=== PATIENT | female | born 1965 | race Caucasian/White ===

== ENCOUNTER → 2017-02-20 | Outpatient (CLI) | payer BC, SELFPAY | PROVIDERS: Visit Provider Internal Medicine | DX: C50.919 Malignant neoplasm of unspecified site of unspecified female breast (principal) | CPT/HCPCS: 76641; 77066; G0204 ==

== ENCOUNTER 2017-03-23 08:30 | Outpatient (CLI) | payer BC, SELFPAY ==
[2017-03-23 08:30] VITALS: BP 122/78; PULSE 68; RESP 20; TEMP 36.4
== END 2017-03-23 09:00 | disposition home or self-care (01) ==
LOC: INF 15:57
PROVIDERS: Family Provider Family Medicine; PCP Family Medicine; Visit Provider Internal Medicine
DX: Z45.2 Encounter for adjustment and management of vascular access device (principal)
CPT/HCPCS: 96523; J1642

== ENCOUNTER 2017-04-27 08:36 | Outpatient (CLI) | payer BC, SELFPAY ==
[2017-04-27 08:45] VITALS: BP 150/78; PULSE 65; RESP 18; TEMP 36.6; O2SAT 97
== END 2017-04-27 08:50 | disposition home or self-care (01) ==
LOC: INF 08:37
PROVIDERS: Family Provider Family Medicine; PCP Family Medicine; Visit Provider Internal Medicine
DX: Z45.2 Encounter for adjustment and management of vascular access device (principal)
CPT/HCPCS: 96523; J1642

== ENCOUNTER 2017-05-25 08:35 | Outpatient (CLI) | payer BC, SELFPAY | END 2017-05-25 08:55 | disposition home or self-care (01) | LOC: INF 08:35 | PROVIDERS: Family Provider Family Medicine; PCP Family Medicine; Visit Provider Internal Medicine | DX: Z45.2 Encounter for adjustment and management of vascular access device (principal) | CPT/HCPCS: 96523; J1642 ==

== ENCOUNTER 2017-06-10 08:17 | Outpatient (CLI) | payer BC, SELFPAY ==
[2017-06-10 08:39] VITALS: BMI 36.4
[2017-06-10 08:51] LABS: Basophils # 0.1 K/mm3 (0-0.2); Basophils % 0.7 % (0.1-2.0); Eosinophils # 0.1 K/mm3 (0.0-0.4); Eosinophils % 1.9 % (0.1-12.0); Hematocrit 43.4 % (37.0-47.0); Hemoglobin 14.4 g/dL (12.2-16.2); Lymphocytes # 1.7 K/mm3 (0.7-4.5); Lymphocytes % 26.9 K/mm3 (10-50); Mean Corpuscular HGB Conc 33.2 g/dL (31.8-35.4); Mean Corpuscular Hemoglobin 30.1 pg (27.0-31.2); Mean Corpuscular Volume 90.7 fl (81-99); Mean Platelet Volume 7.9 fl (7.4-10.4); Monocytes # 0.3 K/mm3 (0.1-1.0); Neutrophils # 4.1 K/mm3 (1.8-7.8); Neutrophils % 65.4 % (37.0-80.0); Platelet Count 194 K/mm3 (142-424); Red Blood Count 4.78 M/mm3 (4.20-5.40); Red Cell Distribution Width 12.6 % (11.5-17.5); White Blood Count 6.2 K/mm3 (4.8-10.8)
[2017-06-10 09:01] LABS: Alanine Aminotransferase 48 U/L (12-78); Albumin Level 3.4 gm/dL (3.4-5.0); Albumin/Globulin Ratio 0.8 (1.1-1.8); Alkaline Phosphatase 146 U/L (46-116); Aspartate Amino Transferase 38 U/L (15-37); Bilirubin,Total 0.4 mg/dL (0.2-1.0); Blood Urea Nitrogen 12 mg/dL (7-18); Calcium 8.7 mg/dL (8.5-10.1); Carbon Dioxide 28 mmol/L (21.0-32.0); Chloride 107 mmol/L (98-107); Creatinine Clearance Estimated 136 mL/min (0-300); Creatinine,Serum 0.67 mg/dL (0.55-1.02); Estimated Glomerular Filt Rate 92 ml/min (>60); GFR (African American) 112 ML/MIN (>60); Globulin 4.2 gm/dl (1.3-3.2); Glucose 107 mg/dL (74-106); Sodium 143 mmol/L (136-145); Total Protein,Serum 7.6 gm/dL (6.4-8.2)
== END 2017-06-10 08:35 | disposition home or self-care (01) ==
LOC: INF 08:17
PROVIDERS: Family Provider Family Medicine; PCP Family Medicine; Visit Provider Internal Medicine
DX: Z45.2 Encounter for adjustment and management of vascular access device (principal)
CPT/HCPCS: 80053; 85025; J1642

== ENCOUNTER 2017-06-18 08:56 | Outpatient (CLI) | payer BC, SELFPAY ==
--- NOTE | 2017-06-18 09:11 | CT_ITS ---
CT chest w con HISTORY: Follow-up breast cancer/melanoma ITS.REASON: BREAST CA, MELANOMA ORDERING PHYSICIAN: Saumel Youssef MD PATIENT AGE: 52 years TECHNIQUE: Axial images obtained following the administration of 75 mL of Isovue 370 . Sagittal, and coronal reformatted images are also generated and reviewed. All CT scans at the facility use one or more dose reduction, viz: automated exposure control; ma/kV adjustment per patient size (including targeted exams where dose is matched to indication; i.e. head); or iterative reconstruction technique. COMPARISON: 02/03/2017 FINDINGS: No mediastinal mass. No mediastinal or hilar adenopathy. Residual increased density involves the left breast as before not significantly changed. Mediport catheter is in place from a right subclavian approach No suspicious pulmonary nodules effusions or infiltrates. There is mild scarring in the lung bases.. No destructive bony abnormalities. IMPRESSION: Overall stable CT appearance of the chest with no convincing evidence of metastatic disease.
--- NOTE | 2017-06-18 09:11 | CT_ITS ---
CT abdomen pelvis w con CLINICAL INDICATION: ITS.REASON: BREAST CA, MELANOMA ORDERING PHYSICIAN: Samuel Youssef MD PATIENT AGE: 52 years COMPARISON: 02/03/2017 TECHNIQUE: Axial images obtained with sagittal and coronal reformats. All CT scans at the facility use one or more dose reduction, viz: automated exposure control; ma/kV adjustment per patient size (including targeted exams where dose is matched to indication; i.e. head); or iterative reconstruction technique. PROCEDURE: Oral Contrast: Redicat IV Contrast: 75 mL's of Isovue 370 performed in conjunction with chest CT. FINDINGS: There are diffuse fatty liver replacement. No focal liver lesions are evident. Prior cholecystectomy without ductal dilatation. The spleen, adrenal glands, and pancreas have an unremarkable appearance. Exophytic right renal cyst is present measuring 2.6 cm unchanged. No suspicious renal mass. No hydronephrosis or obstructing ureteral calculus. There is a small hiatal hernia. There are small varicosities once again noted in the left retroperitoneum inferior to the renal vein not significantly changed.. No pelvic mass focal inflammatory change or abnormal fluid collection or adenopathy evident. Unremarkable appendix. No evidence of intestinal obstruction or free air. No destructive bony lesions. IMPRESSION: Stable CT appearance of the abdomen and pelvis. No convincing evidence of metastatic disease.
== END 2017-06-18 09:50 | disposition home or self-care (01) ==
LOC: RAD 09:00
PROVIDERS: Family Provider Family Medicine; PCP Family Medicine; Visit Provider Internal Medicine
DX: C50.912 Malignant neoplasm of unspecified site of left female breast (principal); Z17.0 Estrogen receptor positive status [ER+]; C79.9 Secondary malignant neoplasm of unspecified site
CPT/HCPCS: 71260; 74177; J1642; Q9967

== ENCOUNTER 2017-08-18 10:03 | Outpatient (CLI) | payer BC, SELFPAY ==
[2017-08-18 10:15] VITALS: BP 140/83; PULSE 82; RESP 18; TEMP 36.9; O2SAT 96
== END 2017-08-18 10:25 | disposition home or self-care (01) ==
LOC: INF 10:03
PROVIDERS: Family Provider Family Medicine; PCP Family Medicine; Visit Provider Internal Medicine
DX: Z45.2 Encounter for adjustment and management of vascular access device (principal)
CPT/HCPCS: 96523; J1642

== ENCOUNTER 2017-09-21 08:37 | Outpatient (CLI) | payer BC, SELFPAY ==
[2017-09-21 08:30] VITALS: BP 122/70; PULSE 68; RESP 20; TEMP 36.9; O2SAT 98
[2017-09-21 08:37] VITALS: BMI 35.9
[2017-09-21 08:45] VITALS: BP 122/70; PULSE 68; RESP 20; TEMP 36.9; O2SAT 98
[2017-09-21 09:19] LABS: Basophils % 0.5 % (0.1-2.0); Eosinophils # 0.1 K/mm3 (0.0-0.4); Eosinophils % 1.8 % (0.1-12.0); Hematocrit 42.6 % (37.0-47.0); Hemoglobin 14.4 g/dL (12.2-16.2); Lymphocytes # 1.9 K/mm3 (0.7-4.5); Lymphocytes % 31.4 K/mm3 (10-50); Mean Corpuscular HGB Conc 33.9 g/dL (31.8-35.4); Mean Corpuscular Hemoglobin 30.1 pg (27.0-31.2); Mean Platelet Volume 7.3 fl (7.4-10.4); Monocytes # 0.4 K/mm3 (0.1-1.0); Neutrophils # 3.6 K/mm3 (1.8-7.8); Neutrophils % 60.2 % (37.0-80.0); Platelet Count 198 K/mm3 (142-424); Red Blood Count 4.79 M/mm3 (4.20-5.40); Red Cell Distribution Width 12.6 % (11.5-17.5)
[2017-09-21 09:28] LABS: Alanine Aminotransferase 62 U/L (12-78); Albumin Level 3.3 gm/dL (3.4-5.0); Albumin/Globulin Ratio 0.8 (1.1-1.8); Alkaline Phosphatase 149 U/L (46-116); Anion Gap 12.9 mEq/L (5-15); Aspartate Amino Transferase 44 U/L (15-37); Bilirubin,Total 0.6 mg/dL (0.2-1.0); Blood Urea Nitrogen 14 mg/dL (7-18); Calcium 8.4 mg/dL (8.5-10.1); Carbon Dioxide 27 mmol/L (21.0-32.0); Chloride 107 mmol/L (98-107); Creatinine Clearance Estimated 123 mL/min (0-300); Creatinine,Serum 0.73 mg/dL (0.55-1.02); Estimated Glomerular Filt Rate 84 ml/min (>60); GFR (African American) 101 ML/MIN (>60); Globulin 4.2 gm/dl (1.3-3.2); Glucose 117 mg/dL (74-106); Potassium 3.9 mmoL/L (3.5-5.1); Sodium 143 mmol/L (136-145); Total Protein,Serum 7.5 gm/dL (6.4-8.2)
== END 2017-09-21 08:45 | disposition home or self-care (01) ==
LOC: INF 08:37
PROVIDERS: Family Provider Family Medicine; PCP Family Medicine; Visit Provider Internal Medicine
DX: Z45.2 Encounter for adjustment and management of vascular access device (principal)
CPT/HCPCS: 80053; 85025

== ENCOUNTER 2017-10-19 08:25 | Outpatient (CLI) | payer BC, SELFPAY ==
[2017-10-19 08:35] VITALS: BP 162/76; PULSE 64; RESP 18; O2SAT 96
== END 2017-10-19 08:45 | disposition home or self-care (01) ==
LOC: INF 08:31
PROVIDERS: Family Provider Family Medicine; PCP Family Medicine; Visit Provider Internal Medicine
DX: Z45.2 Encounter for adjustment and management of vascular access device (principal)
CPT/HCPCS: 96523; J1642

== ENCOUNTER 2017-11-16 08:40 | Outpatient (CLI) | payer BC, SELFPAY | END 2017-11-16 09:00 | disposition home or self-care (01) | LOC: INF 08:40 | PROVIDERS: Family Provider Family Medicine; PCP Family Medicine; Visit Provider Internal Medicine | DX: Z45.2 Encounter for adjustment and management of vascular access device (principal) | CPT/HCPCS: 96523; J1642 ==

== ENCOUNTER 2017-12-23 11:24 | Outpatient (CLI) | payer BC, SELFPAY ==
[2017-12-23 11:26] VITALS: BMI 37.8
[2017-12-23 11:48] LABS: Basophils # 0.1 K/mm3 (0-0.2); Basophils % 0.7 % (0.1-2.0); Eosinophils # 0.2 K/mm3 (0.0-0.4); Eosinophils % 2.1 % (0.1-12.0); Hematocrit 43.3 % (37.0-47.0); Hemoglobin 14.6 g/dL (12.2-16.2); Lymphocytes # 2.3 K/mm3 (0.7-4.5); Lymphocytes % 30.8 K/mm3 (10-50); Mean Corpuscular HGB Conc 33.8 g/dL (31.8-35.4); Mean Corpuscular Hemoglobin 30.3 pg (27.0-31.2); Mean Corpuscular Volume 89.8 fl (81-99); Mean Platelet Volume 7.3 fl (7.4-10.4); Monocytes # 0.4 K/mm3 (0.1-1.0); Monocytes % 5.6 % (1.7-9.3); Neutrophils # 4.5 K/mm3 (1.8-7.8); Neutrophils % 60.9 % (37.0-80.0); Platelet Count 202 K/mm3 (142-424); Red Blood Count 4.82 M/mm3 (4.20-5.40); Red Cell Distribution Width 12.6 % (11.5-17.5); White Blood Count 7.4 K/mm3 (4.8-10.8)
[2017-12-23 12:02] LABS: Alanine Aminotransferase 51 U/L (12-78); Albumin Level 3.2 gm/dL (3.4-5.0); Albumin/Globulin Ratio 0.8 (1.1-1.8); Alkaline Phosphatase 143 U/L (46-116); Anion Gap 10.4 mEq/L (5-15); Aspartate Amino Transferase 41 U/L (15-37); Bilirubin,Total 0.6 mg/dL (0.2-1.0); Blood Urea Nitrogen 13 mg/dL (7-18); Calcium 8.4 mg/dL (8.5-10.1); Carbon Dioxide 28 mmol/L (21.0-32.0); Chloride 105 mmol/L (98-107); Creatinine Clearance Estimated 141 mL/min (0-300); Creatinine,Serum 0.67 mg/dL (0.55-1.02); Estimated Glomerular Filt Rate 92 ml/min (>60); GFR (African American) 112 ML/MIN (>60); Globulin 4.1 gm/dl (1.3-3.2); Glucose 92 mg/dL (74-106); Potassium 3.4 mmoL/L (3.5-5.1); Sodium 140 mmol/L (136-145); Total Protein,Serum 7.3 gm/dL (6.4-8.2)
[2017-12-23 14:47] LABS: Thyroid Stimulating Hormone 2.87 uIU/ml (0.358-3.740)
== END 2017-12-23 11:45 | disposition home or self-care (01) ==
LOC: INF 11:24
PROVIDERS: Nurse Practitioner; Visit Provider Internal Medicine
DX: R53.83 Other fatigue (principal)
CPT/HCPCS: 80053; 84443; 85025; J1642

== ENCOUNTER → 2017-12-30 08:55 | Outpatient (CLI) | payer BC, SELFPAY ==
--- NOTE | 2017-12-30 08:58 | NM_ITS ---
NM bone scan whole body CLINICAL INDICATION: ITS.REASON: bone pain,breast cancer ORDERING PHYSICIAN: Caroline Andrea PATIENT AGE: 52 years Comparison: 06/05/2006 DOSE: 26.1 mCi technetium MDP FINDINGS: There is mild diffuse increased activity over the mid tibia on both sides left more so than right and there is slight increased activity in the left hip. No focal areas of increased activity evident that would indicate metastatic disease. Nonspecific articular activity noted in the shoulders and ankles. IMPRESSION: 1. No convincing evidence of metastatic disease. 2. Nonspecific activity in the left hip and both tibias
--- NOTE | 2017-12-30 13:16 | XR_ITS ---
XR tibia fibula RT 2V CLINICAL INDICATION: Abnormal bone scan, history of breast cancer ORDERING PHYSICIAN: Caroline Andrea PATIENT AGE: 52 years Comparison: None FINDINGS: Bone scan showed increased activity in the mid tibial region. This area has an unremarkable appearance. Incidental note is made of calcification of the Achilles tendon distally which may be due to old injury. IMPRESSION: Unremarkable tib-fib
--- NOTE | 2017-12-30 13:16 | XR_ITS ---
XR hip LT 2-3V w/pelvis HISTORY: Breast cancer, abnormal bone scan ORDERING PHYSICIAN: Caroline Andrea PATIENT AGE: 52 years COMPARISON: None FINDINGS: Bone scan shows slight increased activity in the left hip. No fracture or dislocation. No lytic or blastic change. There are minor osteoarthritic changes. Mild hypertrophic changes are present at the acetabular roof. IMPRESSION: Mild osteoarthritis otherwise negative left hip
--- NOTE | 2017-12-30 13:16 | XR_ITS ---
XR tibia fibula LT 2V CLINICAL INDICATION: Abnormal bone scan, breast cancer ORDERING PHYSICIAN: Caroline Andrea PATIENT AGE: 52 years Comparison: None FINDINGS: Bone scan showed increased activity in the mid tibial region. No fracture or dislocation. No lytic or blastic change. No periosteal reaction. IMPRESSION: Negative left tib-fib
--- NOTE | 2017-12-30 13:29 | MM_ITS ---
MM Dig mamm BI DX w/CAD, US breast RT complete COMPARISON: Bilateral mammogram studies 08/20/2016 February 20 2017 INDICATION: Follow-up abnormal mammogram, history of breast cancer New palpable area right breast also noted. Skin marker placed ORDERING PHYSICIAN: Caroline KRISTA Andrea PATIENT AGE: 52 years ===== DIAGNOSTIC BILATERAL MAMMOGRAM incld additional spot views upper outer quadrant right breast TECHNIQUE: MLO, CC view, axillary cc view both breast. Additional spot views upper-outer quadrant right: FINDINGS:. Dense fibroglandular tissue. Skin marker noted over palpable area lateral breast RIGHT BREAST. Mammogram with additional views Attention particularly directed towards palpable area at the lateral right breast. Spot view views here show no focal area of concern. No focal mass lesion or architectural distortion. Separate ultrasound reveals no areas of concern either. Would suggest a follow-up right mammogram in 6 months to confirm stability particularly in this high-risk patient The Port-A-Cath is seen projected over the right axilla. LEFT BREAST mammogram Scarring with prominent architectural distortion once again seen at the left breast. Most evident Involving the lower inner aspect of the left breast. There are surgical clips in the left axilla. The diffuse skin thickening has shownimprovement since 2017. Prominent veins are present in the outer aspect of the left breast. No significant new areas of concern left mammogram. No malignant appearing mass or malignant appearing microcalcification.. Density superior left breast is been seen on previous studies but may benefit from interval follow-up when the patient returns next. RIGHT BREAST ULTRASOUND including axillary survey: TECHNIQUE: Ultrasound entire breast was performed including additional views of the axilla MW . No mass lesion or cyst are identified within the breast. No areas of architectural distortion appreciated. . Particular attention is directed towards the palpable area at 7 O'clock position right breast. Axillary survey with no suspicious nodes. Scattered overall benign appearing nodes. The largest vague node or collection of nodes and axilla spans nearly 3.9 cm length overall x less than 1 cm AP. Most likely benign feature.. IMPRESSION: 1.. Right breast. Stable right breast mammogram but follow-up in 6 months recommended if palpable area persist The palpable area shows no areas of concern,/no solid mass or unique findings on mammography or ultrasound . Recommend follow-up mammogram 6 months to confirm stability in this higher risk patient 2. Left breast Prominent distortion from the prior lumpectomy/radiation with decreasing skin thickness.. Who would suggest a follow-up left mammogram in 6 months with the patient returns as well to confirm stability in this difficult to evaluate breast BI-RADS Category: 3 Probably Benign Finding Short Term Follow-up RECOMMENDED FOLLOWUP: 6M 6MONTH FOLLOW-UP Bilateral mammogram 6 months to better verify stability in this higher-risk patient Consider including ultrasound right breast at palpable area right persist (A letter has been sent to the patient regarding results of the study.) A
== END ==
PROVIDERS: PCP Family Medicine; Visit Provider Nurse Practitioner
DX: C50.912 Malignant neoplasm of unspecified site of left female breast (principal); R53.83 Other fatigue
CPT/HCPCS: 73502; 73590; 76641; 77066; 78306

== ENCOUNTER 2018-01-14 14:12 | Outpatient (CLI) | payer BC, SELFPAY ==
[2018-01-14 14:14] VITALS: BMI 37.1
[2018-01-14 14:35] LABS: Basophils # 0.1 K/mm3 (0-0.2); Basophils % 0.6 % (0.1-2.0); Eosinophils # 0.1 K/mm3 (0.0-0.4); Eosinophils % 1.5 % (0.1-12.0); Hematocrit 43.9 % (37.0-47.0); Hemoglobin 14.7 g/dL (12.2-16.2); Lymphocytes # 1.9 K/mm3 (0.7-4.5); Lymphocytes % 24.8 % (10-50); Mean Corpuscular HGB Conc 33.5 g/dL (31.8-35.4); Mean Corpuscular Hemoglobin 30.4 pg (27.0-31.2); Mean Corpuscular Volume 90.8 fl (81-99); Mean Platelet Volume 7.2 fl (7.4-10.4); Monocytes # 0.4 K/mm3 (0.1-1.0); Monocytes % 5.3 % (1.7-9.3); Neutrophils # 5.3 K/mm3 (1.8-7.8); Neutrophils % 67.9 % (37.0-80.0); Platelet Count 210 K/mm3 (142-424); Red Blood Count 4.83 M/mm3 (4.20-5.40); Red Cell Distribution Width 13.1 % (11.5-17.5); White Blood Count 7.9 K/mm3 (4.8-10.8)
[2018-01-14 14:52] LABS: Alanine Aminotransferase 54 U/L (12-78); Albumin Level 3.2 gm/dL (3.4-5.0); Albumin/Globulin Ratio 0.8 (1.1-1.8); Alkaline Phosphatase 143 U/L (46-116); Anion Gap 12.4 mEq/L (5-15); Aspartate Amino Transferase 44 U/L (15-37); Bilirubin,Total 0.5 mg/dL (0.2-1.0); Blood Urea Nitrogen 15 mg/dL (7-18); Calcium 7.9 mg/dL (8.5-10.1); Carbon Dioxide 29 mmol/L (21.0-32.0); Chloride 103 mmol/L (98-107); Creatinine Clearance Estimated 108 mL/min (50-200); Creatinine,Serum 0.87 mg/dL (0.55-1.02); Estimated Glomerular Filt Rate 68 ml/min (>60); GFR (African American) 83 ML/MIN (>60); Globulin 4.2 gm/dl (1.3-3.2); Glucose 156 mg/dL (74-106); Potassium 3.4 mmoL/L (3.5-5.1); Sodium 141 mmol/L (136-145); Total Protein,Serum 7.4 gm/dL (6.4-8.2)
== END 2018-01-14 14:35 | disposition home or self-care (01) ==
LOC: INF 14:12
PROVIDERS: Visit Provider Internal Medicine Medical Oncology
DX: Z45.2 Encounter for adjustment and management of vascular access device (principal)
CPT/HCPCS: 80053; 85025; J1642

== ENCOUNTER → 2018-02-01 07:40 | Outpatient (CLI) | payer BC, SELFPAY ==
--- NOTE | 2018-02-01 07:43 | US_ITS ---
US biopsy guidance, US breast RT complete, US organ site (breast) Ordering Physician: Coy Webster MD Patient Age: 52 years: Female HISTORY: ITS.REASON: Generous benign-appearing rt axillary lymph nodenoted on recent ultrasound FINDINGS AND PROCEDURE: ULTRASOUND right axilla/axillary lymph node.; Multiple ultrasound benign-appearing nodes are seen at the right axilla The elongated benign-appearing lymph node with thickened cortex is again observed & measures up to 3.5 cm maximum dimension. Thin benign-appearing cortex at this lymph node .These images also determined the best approach for access to perform aspiration biopsy of this nodule.. ULTRASOUND-GUIDED FNA BIOPSY right axilla lymph node Following sterile preparation as well as local anesthesia. Placement of Xylocaine normal, subdermal with minimal Xylocaine just beneath the skin towards the planned tract. We then proceeded with the needle biopsy. . Under ultrasound guidance the biopsy needle, was advanced to the nodule and positioned. Needle tip was observed passing into the left node each of 4 multipleFNA biopsies passes.. Manual Vacuum placed upon the needle with length back on connected 10 cc syringe. B. First pass was with a 25-gauge hypodermic needle to the inferior aspect of the node. However longer needle was required on subsequent FNA biopsies. Thus A second pass was with a 20-gauge spinal needle. Third and fourth FNA biopsy passes performed using a 22-gauge Chiba needle . Overall generous tissue was obtained and submitted an RPMI solution. Patient tolerated procedure well. Report from Pathology and Cytology Laboratory now available IMPRESSION: FNA of the benign-appearing lymph node at the right axilla performed . Adequate sample material obtained - & submitted in RPMI solution . Negative flow cytometry results
== END ==
PROVIDERS: PCP Family Medicine; Visit Provider Surgery
DX: N63.10 Unspecified lump in the right breast, unspecified quadrant (principal)
CPT/HCPCS: 10022; 76641; 76942

== ENCOUNTER 2018-04-09 10:25 | Outpatient (CLI) | payer BC, SELFPAY | END 2018-04-09 11:05 | disposition home or self-care (01) | LOC: INF 10:41 | PROVIDERS: Visit Provider Internal Medicine Medical Oncology | DX: Z45.2 Encounter for adjustment and management of vascular access device (principal) | CPT/HCPCS: 96523; J1642 ==

== ENCOUNTER 2018-05-07 08:40 | Outpatient (CLI) | payer BC, SELFPAY | END 2018-05-07 09:00 | disposition home or self-care (01) | LOC: INF 08:43 | PROVIDERS: Visit Provider Internal Medicine Medical Oncology | DX: Z45.2 Encounter for adjustment and management of vascular access device (principal) | CPT/HCPCS: 96523; J1642 ==

== ENCOUNTER → 2018-05-17 09:37 | Outpatient (CLI) | payer BC, SELFPAY ==
--- NOTE | 2018-05-17 09:39 | US_ITS ---
FNA w guidance Ultrasound axillary right breast Ultrasound-guided FNA biopsy of generous right axillary lymph node Ordering Physician: Coy Webster MD Patient Age: 53 years: Female HISTORY: ITS.REASON: right breast nodule, history of breast cancerand lumpectomy TECHNIQUE: Fine-needle aspiration a benign appearing right axillary lymph node. FINDINGS AND PROCEDURE: ULTRASOUND right axillary lymph node The right axillary node we have been following is again visualized. It is actually more difficult to visualize today than previous studies. This long thin and benign normal appearing axillary lymph node with thin cortex measures up to 3.1 cm maximum length. X 6 mm -I would note also measures progressively less length, measuring 3.4 cm in length Jan 2018 is & 3.9 cm November 2017 study Other benign nonspecific appearing smaller lymph nodes are seen at the axilla. Only a thin cortex and benign fatty hilum character. .These images also determined the best approach for access to perform aspiration biopsy of this nodule. Scanning by Dr. Lanza ULTRASOUND-GUIDED FNA BIOPSY dominant right axillary lymph node Following sterile preparation as well as local skin, and cautious deeper placement of Xylocaine anesthetic FNA biopsy sampling performed. A total of 5 passes performed.. The first 3 FNA passes were sent for cytology.-The initial 2 using a 25-gauge needle & a third pass a 21-gauge needle. . The final 2 FNA passes were sent for flow cytometry and used 25-gauge needle. FNA needle was observed by ultrasound with tip within region of this left axillary left node on each of these passes again there is a thin cortex, generous fatty hilum at this very soft benign-appearing smaller lymph node at deep axilla. More difficult to sample given the than cortex and pliable soft character of this lymph node. Patient tolerated procedure well. IMPRESSION: ------ 1. Repeat FNA right axillary lymph node . 5 FNA passes performed of benign appearing right axillary lymph node again performed. This specific generous, dominant lymph node measures slightly smaller today; & it continues to have benign ultrasound characteristics including thin cortex, generous fatty hilum and very soft character with biopsy. All features supporting its benign character . Both cytology and flow cytometry samples submitted, . CYTOPATHOLOGY REPORT WITH FLOW CYTOMETRY:: NEGATIVE for malignancy. Compatible with benign axillary lymph node. Analysis slightly limited by abundant blood
== END ==
PROVIDERS: PCP Family Medicine; Visit Provider Surgery
DX: N63.31 Unspecified lump in axillary tail of the right breast (principal); Z85.3 Personal history of malignant neoplasm of breast
CPT/HCPCS: 10005

== ENCOUNTER → 2018-06-03 10:24 | Outpatient (CLI) | payer BC, SELFPAY ==
[2018-06-03 10:31] VITALS: BMI 38.1
[2018-06-03 11:07] LABS: Adenovirus,PCR Not Detected (NotDetected); Bordetella Pertussis Not Detected (NotDetected); Chlamydophila Pneumoniae, PCR Not Detected (NotDetected); Coronavirus 229E Not Detected (NotDetected); Coronavirus NL63 Not Detected (NotDetected); Coronavirus OC43 Not Detected (NotDetected); Coronovirus HKU1,PCR Not Detected (NotDetected); Human Metapneumovirus Not Detected (NotDetected); Influenza A, PCR Not Detected (NotDetected); Influenza AH1, 2009 Not Detected (NotDetected); Influenza AH1, PCR Not Detected (NotDetected); Influenza AH3,PCR Not Detected (NotDetected); Influenza B, PCR Not Detected (NotDetected); Mycoplasma Pneumoniae, PCR Not Detected (NotDetected); Parainfluenza 1, PCR Not Detected (NotDetected); Parainfluenza 2, PCR Not Detected (NotDetected); Parainfluenza 3, PCR Not Detected (NotDetected); Parainfluenza 4, PCR Not Detected (NotDetected); Respiratory Syncytial Virus Not Detected (NotDetected); Rhinovirus/Enterovirus Not Detected (NotDetected)
--- NOTE | 2018-06-03 11:25 | XR_ITS ---
XR chest 2V HISTORY: Cough short of breath history of breast cancer ITS.REASON: SHORTNESS OF BREATH ORDERING PHYSICIAN: ANGELITA Mckeon PATIENT AGE: 53 years Technique: PA and lateral chest COMPARISON: No previous CXR CT chest from May 2017 FINDINGS: Nothing definitely acute. Structural [employer] Worker film from the CT chest shows there is slight increased markings at the medial right base appear to be a similar feature and stable. No convincing pneumonia. The heart ko and mediastinal structures appear stable and satisfactory. Indwelling Port-A-Cath enters from right subclavian with tip at the SVC.. Postsurgical changes overlying left chest from likely from previous breast surgery.. Normal pulmonary vascularity. . IMPRESSION. Nothing definitely acute Upper normal markings medial right base most likely reflecting overlapping structures & minor chronic changes. It.
[2018-06-03 11:53] LABS: Alanine Aminotransferase 46 U/L (12-78); Albumin Level 3.4 gm/dL (3.4-5.0); Albumin/Globulin Ratio 0.7 (1.1-1.8); Alkaline Phosphatase 148 U/L (46-116); Anion Gap 12.4 mEq/L (5-15); Aspartate Amino Transferase 34 U/L (15-37); Bilirubin,Total 1.1 mg/dL (0.2-1.0); Blood Urea Nitrogen 15 mg/dL (7-18); Calcium 8.7 mg/dL (8.5-10.1); Carbon Dioxide 28 mmol/L (21.0-32.0); Chloride 105 mmol/L (98-107); Creatinine Clearance Estimated 121 mL/min (50-200); Creatinine,Serum 0.78 mg/dL (0.55-1.02); Estimated Glomerular Filt Rate 77 ml/min (>60); Free T4 (Free Thyroxine) 0.99 ng/dl (0.76-1.46); GFR (African American) 93 ML/MIN (>60); Globulin 4.7 gm/dl (1.3-3.2); Glucose 111 mg/dL (74-106); Potassium 3.4 mmoL/L (3.5-5.1); Sodium 142 mmol/L (136-145); Thyroid Stimulating Hormone 2.64 uIU/ml (0.358-3.740); Total Protein,Serum 8.1 gm/dL (6.4-8.2)
== END ==
LOC: RAD 10:26 → INF 10:28
PROVIDERS: PCP Family Medicine; Visit Provider Physician Assistant
DX: R06.02 Shortness of breath (principal); R00.2 Palpitations; E55.9 Vitamin D deficiency, unspecified; R50.9 Fever, unspecified; R05 Cough
CPT/HCPCS: 71046; 80053; 82652; 84439; 84443; 87040; 87486; 87581; 87633; 87798; 93005; 93225; 93226; J1642

== ENCOUNTER 2018-06-04 08:40 | Outpatient (CLI) | payer BC, SELFPAY ==
--- NOTE | 2018-06-04 08:47 | CA_ITS ---
PROCEDURE: 2-D M-mode and color Doppler study INDICATIONS FOR THE TEST: Chest pain COPD Heart Murmur Tobacco Smoking PalpitationsX Fatigue Syncope Edema Hypertension Diabetes Mellitus Rheumatic Fever SOB ALCANTAR ObesityXHyperlipidemia Family History HD Additional History BREAST CA LIMITED IMAGES PLAX/PSAX SECONDARY TO BREAST CA PATIENT INFORMATION HEIGHT: 61 WEIGHT:202 GENDER: Female B/P:158/91 2-D/M-MODE INTERPRETATION: 2-D MEASUREMENTS OBSERVED VALUES IN CMS Right Ventricular Dimension (RVDd) 1.8 Interventricular Septum (Thickness)(IVsd) 1.1 Left Ventricular Internal Dimensions(LVIDd) 4.4 Left Ventricular Posterior Wall (Thickness)(LVPWd) 1.1 Aortic Root 3.0 Aortic Cusp Separation 1.8 Left Atrial Dimensions (LAD) 3.3 2D 1. Left atrium is mildly enlarged, left ventricle is normal size, mild concentric left ventricular hypertrophy, visually estimated ejection fraction 55% with no regional wall motion abnormality. 2. The right atrium and right ventricle are normal size and contractility. 3. The aortic valve is minimally thickened and fibrosed. 4. The mitral and tricuspid valvular grossly normal. 5. No significant pericardial effusion noted. 6. Pulmonic valve is poorly visualized. DOPPLER INTERROGATION: Doppler interrogation of the aortic, mitral and tricuspid valvular presence of mild mitral and tricuspid regurgitation, tricuspid regurgitation jet velocity is inadequate for calculation of the right ventricular systolic pressure. Diastolic dysfunction seen with tissue Doppler evidence of raised left atrial pressure. Inferior vena cava is not well visualized. CONCLUSION: 1. Mildly enlarged left atrium, normal left ventricular size, mild concentric left ventricular hypertrophy, visually estimated ejection fraction 55% with no regional wall motion abnormality, grade 1 diastolic dysfunction seen with tissue Doppler evidence of raised left atrial pressure. 2. Mild mitral and tricuspid regurgitation 3. No significant pericardial effusion noted.
[2018-06-04 09:20] VITALS: BMI 38.1
[2018-06-04 10:32] LABS: Erythrocyte Sedimentation Rate 53 mm/hr (0-30)
[2018-06-05 18:11] LABS: Cytomegalovirus (CMV) Ab, IgG <0.60 U/mL (0.00-0.59); Cytomegalovirus (CMV) Ab, IgM <30.0 AU/mL (0.0-29.9); EBV Ab VCA, IgG >600.0 U/mL (0.0-17.9); EBV Ab VCA, IgM <36.0 U/mL (0.0-35.9); EBV Nuclear Antigen Ab, IgG >600.0 U/mL (0.0-17.9); Epstein-Barr Virus Early Ag Ab >150.0 U/mL (0.0-8.9)
== END 2018-06-04 09:50 | disposition home or self-care (01) ==
LOC: INF 08:41
PROVIDERS: PCP Family Medicine; Visit Provider Physician Assistant
DX: R06.02 Shortness of breath (principal); R50.9 Fever, unspecified
CPT/HCPCS: 85651; 86644; 86645; 86663; 86664; 86665; 93306; J1642

== ENCOUNTER 2018-06-07 12:17 | Outpatient (CLI) | payer BC, SELFPAY ==
[2018-06-07 12:46] VITALS: BP 143/77; PULSE 82; RESP 18; TEMP 36.7; O2SAT 96
[2018-06-07 13:16] VITALS: BP 139/79; PULSE 84; RESP 18; O2SAT 97
[2018-06-07 13:35] VITALS: BP 141/74; PULSE 81; RESP 18; O2SAT 97
== END 2018-06-07 13:40 | disposition home or self-care (01) ==
LOC: INF 12:18
PROVIDERS: PCP Family Medicine; Visit Provider Nurse Practitioner Family
DX: J02.0 Streptococcal pharyngitis (principal)
CPT/HCPCS: 96365; J1642

== ENCOUNTER 2018-07-21 08:30 | Outpatient (CLI) | payer BC, SELFPAY ==
--- NOTE | 2018-07-21 10:34 | PC.NURSE ---
0923 - CATH-EDI 2MG DILUTED WITH 2.2ML STERILE WATER AND GAVE IV PUSH VIA PORT A CATH. INSTRUCTED THAT IT WOULD SIT AND RN WOULD RECHECK FOR BLOOD RETURN IN 30 MIN.
== END 2018-07-21 10:00 | disposition home or self-care (01) ==
LOC: INF 08:38
PROVIDERS: Visit Provider Internal Medicine Medical Oncology
DX: Z45.2 Encounter for adjustment and management of vascular access device (principal)
CPT/HCPCS: 96374; J1642

== ENCOUNTER → 2018-08-16 14:24 | Outpatient (CLI) | payer BC, SELFPAY ==
--- NOTE | 2018-08-16 14:25 | US_ITS ---
MM Dig mamm BI DX w/CAD, US breast RT complete, US breast LT complete ORDERING PHYSICIAN : Coy Webster MD PATIENT AGE: 53 years GENDER: Female COMPARISON: November 2017, January 2017 bilateral mammogram studies INDICATION: ITS.REASON: 6 month f/u. Palpable area lateral right breast A previous left lumpectomy for breast cancer TECHNIQUE: Standard CC and MLO images were obtained. R2 CAD reviewed. Additional spot views right breast CC and MLO FINDINGS: . RIGHT BREAST: no significant new areas of concern. Spot views of palpable area at the lateral right breast show no significant findings. No change in standard view show no new findings. The previous mammogram and ultrasound November 2017 showed no significant findings here either. Suggest Follow-up in one year unless the palpable area becomes more pronounced in the interval , requiring interval imaging LEFT BREAST: No significant new areas of concern . Architectural distortion from previous lumpectomy and radiation. Minimal skin thickening in the nipple stable No new findings.. IMPRESSION: ...... 1. Stable bilateral mammogram. No significant or unique new findings. Bilateral follow-up in not over one year suggested (However if palpable areas right breast should progress clinically then imaging would be warranted) Right breast.: The palpable area laterally shows no unique findings on today's mammogram images including spot views. No appreciable change on mammography since 2017 2016. Left breast. Post lumpectomy changes and distortion but no new findings BI-RADS Category: 2 Benign Finding(s) RECOMMENDED FOLLOW-UP: 1YR 1 YEAR FOLLOW-UP (A letter has been sent to the patient regarding results of the study.) Addendum: ---- BILATERAL BREAST ULTRASOUND. Including axillary survey-.: With both breasts the entire breast surveyed. As well as axillary regions bilaterally. HISTORY:Patient currently reports palpable region lower right breast on today's study. Previous left lumpectomy ======== ....LEFT BREAST ULTRASOUND Postsurgical architectural distortion and scarring again encountered. No new areas of concern. No significant new findings vs 2017 prior ultrasound breast No cyst nor suspicious nodules nor masses identified at the left breast... Axillary survey. Small typical Benign-appearing nodes largest measuring 1.5 cm ....RIGHT BREAST ULTRASOUND Today's right breast ultrasound is compared to Feb 01, 2018 as well as Dec 30, 2017 Today's ultrasound survey right breast shows no mass or nodule. No areas of concern. Stable benign appearance of the breast Note technologist particular attention with scanning at region of palpable area towards 7:00 right breast.-. No findings here with ultrasound survey & mammography in this region was unremarkable & appeared stable Survey of the right axilla shows stable benign appearing axillary lymph nodes.. No suspicious appearing nodules. The lymph node which was previously sampled with FNA appears again observed. If anything this node appears to be slight decreased overall volume, with its rather its thin elongated benign appearance ... BILATERAL ULTRASOUND IMPRESSION/ SUMMARY: No new areas of concern either breast. Stable appearance. Follow-up in one year recommended .... RECOMMENDATIONS: Based on combination of ultrasound and mammography imaging, bilateral follow-up in one year the adequate as stated on the mammography report from 08/16/2018. . BI-RADS 2... Stable benign appearance
== END ==
PROVIDERS: PCP Family Medicine; Visit Provider Surgery
DX: Z85.3 Personal history of malignant neoplasm of breast (principal)
CPT/HCPCS: 76641; 77066; 77067

== ENCOUNTER 2018-08-18 09:05 | Outpatient (CLI) | payer BC, SELFPAY ==
[2018-08-18 09:40] VITALS: BP 148/97; PULSE 58; RESP 18; TEMP 36.6; O2SAT 97
[2018-08-18 10:55] VITALS: BP 139/89; PULSE 62; RESP 18; TEMP 36.6; O2SAT 97
== END 2018-08-18 11:00 | disposition home or self-care (01) ==
LOC: INF 09:05
PROVIDERS: Visit Provider Internal Medicine Medical Oncology
DX: Z45.2 Encounter for adjustment and management of vascular access device (principal)
CPT/HCPCS: 96374; J1642

== ENCOUNTER 2018-09-15 09:10 | Outpatient (CLI) | payer BC, SELFPAY ==
--- NOTE | 2018-09-15 10:31 | XR_ITS ---
XR chest 2V HISTORY: ITS.REASON: port removal and replacement,SEASONAL ALLERGIES ORDERING PHYSICIAN: Tennille Pruett MD PATIENT AGE: 53 years COMPARISON: 06/03/2018 FINDINGS: Unremarkable cardiovascular structures. There is a right subclavian Mediport catheter present with the tip in the region of the SVC. Surgical clips are present along the left lower chest. Lungs are clear. No acute bony anomalies. IMPRESSION: No change with no acute finding
== END 2018-09-15 09:25 | disposition home or self-care (01) ==
LOC: INF 09:13
PROVIDERS: Visit Provider Internal Medicine Medical Oncology
DX: Z12.11 Encounter for screening for malignant neoplasm of colon (principal); Z45.2 Encounter for adjustment and management of vascular access device
CPT/HCPCS: 71046; 96523; J1642

== ENCOUNTER → 2018-09-15 11:06 | Outpatient (CLI) | payer BC, SELFPAY ==
[2018-09-15 11:29] LABS: Basophils % 0.5 % (0.1-2.0); Eosinophils # 0.1 K/mm3 (0.0-0.4); Eosinophils % 0.9 % (0.1-12.0); Hematocrit 44.5 % (37.0-47.0); Hemoglobin 14.8 g/dL (12.2-16.2); Lymphocytes % 26.2 % (10-50); Mean Corpuscular HGB Conc 33.2 g/dL (31.8-35.4); Mean Corpuscular Hemoglobin 29.3 pg (27.0-31.2); Mean Corpuscular Volume 88.2 fl (81-99); Monocytes # 0.4 K/mm3 (0.1-1.0); Monocytes % 5.2 % (1.7-9.3); Neutrophils % 67.1 % (37.0-80.0); Platelet Count 220 K/mm3 (142-424); Red Blood Count 5.04 M/mm3 (4.20-5.40); Red Cell Distribution Width 12.6 % (11.5-17.5); White Blood Count 7.5 K/mm3 (4.8-10.8)
[2018-09-15 12:34] LABS: Anion Gap 14.2 mEq/L (5-15); Blood Urea Nitrogen 20 mg/dL (7-18); Calcium 9.1 mg/dL (8.5-10.1); Carbon Dioxide 27 mmol/L (21.0-32.0); Chloride 105 mmol/L (98-107); Creatinine,Serum 0.84 mg/dL (0.55-1.02); Estimated Glomerular Filt Rate 71 ml/min (>60); GFR (African American) 86 ML/MIN (>60); Glucose 96 mg/dL (74-106); Potassium 4.2 mmoL/L (3.5-5.1); Sodium 142 mmol/L (136-145)
== END ==
PROVIDERS: Visit Provider Surgery
DX: Z85.3 Personal history of malignant neoplasm of breast (principal)
CPT/HCPCS: 36415; 80048; 85025

== ENCOUNTER → 2019-04-14 13:01 | Outpatient (CLI) | payer BC, SELFPAY ==
[2019-04-14 13:23] LABS: Basophils # 0.1 K/mm3 (0-0.2); Basophils % 0.7 % (0.1-2.0); Eosinophils # 0.1 K/mm3 (0.0-0.4); Eosinophils % 1.4 % (0.1-12.0); Hemoglobin 14.7 g/dL (12.2-16.2); Lymphocytes # 2.9 K/mm3 (0.7-4.5); Lymphocytes % 35.9 % (10-50); Mean Corpuscular HGB Conc 34.3 g/dL (31.8-35.4); Mean Corpuscular Hemoglobin 31.2 pg (27.0-31.2); Mean Corpuscular Volume 90.9 fl (81-99); Mean Platelet Volume 8.2 fl (7.4-10.4); Monocytes # 0.4 K/mm3 (0.1-1.0); Monocytes % 4.8 % (1.7-9.3); Neutrophils # 4.7 K/mm3 (1.8-7.8); Neutrophils % 57.2 % (37.0-80.0); Platelet Count 224 K/mm3 (142-424); Red Blood Count 4.73 M/mm3 (4.20-5.40); Red Cell Distribution Width 12.8 % (11.5-17.5); White Blood Count 8.2 K/mm3 (4.8-10.8)
[2019-04-14 14:46] LABS: Alanine Aminotransferase 24 U/L (9-52); Albumin/Globulin Ratio 1.1 (1.1-1.8); Alkaline Phosphatase 95 U/L (46-116); Anion Gap 15.1 mEq/L (5-15); Aspartate Amino Transferase 19 U/L (15-37); Bilirubin,Total 0.8 mg/dL (0.2-1.0); Blood Urea Nitrogen 21 mg/dL (7-18); Calcium 8.8 mg/dL (8.5-10.1); Carbon Dioxide 26 mmol/L (21.0-32.0); Chloride 108 mmol/L (98-107); Creatinine,Serum 0.71 mg/dL (0.55-1.02); Estimated Glomerular Filt Rate 86 ml/min (>60); GFR (African American) 104 ML/MIN (>60); Globulin 3.7 gm/dl (1.3-3.2); Glucose 88 mg/dL (74-106); Potassium 4.1 mmoL/L (3.5-5.1); Sodium 145 mmol/L (137-145); Total Protein,Serum 7.7 g/dL (6.4-8.2)
== END ==
PROVIDERS: Visit Provider Internal Medicine Medical Oncology
DX: R51 Headache (principal); Z85.3 Personal history of malignant neoplasm of breast
CPT/HCPCS: 36415; 80053; 85025

== ENCOUNTER → 2019-04-19 07:48 | Outpatient (CLI) | payer BC, SELFPAY ==
--- NOTE | 2019-04-19 07:50 | MR_ITS ---
PROCEDURE: MR HEAD/BRAIN WO/W CON CLINICAL INDICATION: DAILY HEADACHE, HX BREAST CANCER COMPARISON: No exams were available for comparison TECHNIQUE: Routine multiplanar multisequence exam was performed with and without contrast enhancement with 16 milliliters ProHance administration given. FINDINGS: There are scattered nonenhancing FLAIR/T2 hyperintensities in the bilateral cerebral white matter predominantly in the periventricular regions. Differential considerations would include microvascular disease, demyelinating process such as multiple sclerosis, association with migraine headaches, or idiopathic cause. Benign appearing pineal gland cysts are seen in a nonenlarged pineal gland. No infarct hemorrhage mass mass effect extra-axial fluid collection or focus of abnormal contrast enhancement is demonstrated. Normal flow voids are seen in both carotid arteries and in the basilar artery. IMPRESSION: No acute intracranial pathology and no evidence of metastatic disease. Nonenhancing FLAIR/T2 hyperintensities bilateral cerebral white matter. Differential possibilities are described. Benign appearing pineal gland cysts in a nonenlarged pineal gland. Dictated by: Scott Rogers 04/19/2019 10:00 Electronically signed by Scott Rogers in [facility] 04/19/2019 10:00
== END ==
PROVIDERS: PCP Family Medicine; Visit Provider Internal Medicine Medical Oncology
DX: R51 Headache (principal); Z85.3 Personal history of malignant neoplasm of breast
CPT/HCPCS: 70553; A9576

== ENCOUNTER → 2019-08-19 08:56 | Outpatient (CLI) | payer BC, SELFPAY ==
--- NOTE | 2019-08-19 08:56 | US_ITS ---
PROCEDURE: US BREAST LT COMPLETE CLINICAL INDICATION: 1 yr fu, ho breast cancer COMPARISON: BREASTLT US breast LT complete from 08/16/2018 FINDINGS: There is a persistent area of hypoechoic breast parenchyma at the site of the postsurgical scar. There are no new or suspicious findings seen. There is a small normal appearing node in the axilla similar in size to the previous exam. IMPRESSION: Basically stable persistent scarring left breast with no suspicious lesions seen Dictated by: Dr. Jeanmarie Florentino MD 08/19/2019 10:[address] Jeanmarie Florentino MD in [facility] 08/19/2019 10:39
--- NOTE | 2019-08-19 08:56 | MM_ITS ---
PROCEDURE: MM DIG SCREENING MAMM BI W/CAD Digital Breast Tomosynthesis Included CLINICAL INDICATION: 1 yr fu, ho breast cancer The patient is post lumpectomy left breast and patient complains of persistent fullness right breast COMPARISON: DMDB DIG MAMM-DX TONYA W/CAD from 02/20/2017 DXBI MM Dig mamm BI DX w/CAD from 12/30/2017 DIG MAMM-DX TONYA W ADD VIEWS from 08/16/2018 TECHNIQUE: Standard CC and MLO images and 3D Tomosynthesis was obtained. R2 CAD reviewed. FINDINGS: There is persistent postsurgical deformity lower central left breast. There are few scattered benign-appearing microcalcifications left breast. A marker was placed lateral aspect of the right breast at the site of the patient's complaint and only normal appearing fibroglandular elements are seen below the marker. Ultrasound performed the same date showed no ultrasound abnormality at this site. Ultrasound examination left breast same date showed post lumpectomy scarring. IMPRESSION: Stable exam with prominent postlumpectomy scarring left breast and no mammogram or ultrasound abnormal findings at the site of the patient's complaint right breast BI-RAD Category: 2 Benign Finding(s) FOLLOW-UP: 1YR 1 Year Follow-up (A letter has been sent to the patient regarding results of the study.) Dictated by: Dr. Jeanmarie Florentino MD 08/19/2019 10:[address] Jeanmarie Florentino MD in [facility] 08/19/2019 10:35
--- NOTE | 2019-08-19 08:56 | US_ITS ---
PROCEDURE: US BREAST RT COMPLETE CLINICAL INDICATION: 1 yr fu, ho breast cancer Patient complains of possible palpable fullness right breast COMPARISON: BREASTRT US breast RT complete from 08/16/2018 US BREAST LT COMPLETE from 08/19/2019 FINDINGS: Scanning of the right breast with particular attention to the area of interest shows no abnormal cystic or solid lesion. There are no findings to suggest architectural distortion. There is a normal appearing node in the axilla. IMPRESSION: Unremarkable ultrasound right breast Dictated by: Dr. Jeanmarie Florentino MD 08/19/2019 10:[address] Jeanmarie Florentino MD in [facility] 08/19/2019 10:37
== END ==
PROVIDERS: PCP Family Medicine; Visit Provider Surgery
DX: Z12.39 Encounter for other screening for malignant neoplasm of breast (principal); N60.02 Solitary cyst of left breast; Z85.3 Personal history of malignant neoplasm of breast
CPT/HCPCS: 76641; 77063; 77067

== ENCOUNTER → 2020-08-20 10:30 | Outpatient (CLI) | payer BC, SELFPAY ==
--- NOTE | 2020-08-20 10:31 | US_ITS ---
PROCEDURE: US BREAST LT COMPLETE CLINICAL INDICATION: Breast cancer follow up COMPARISON: US US BREAST RT COMPLETE from 08/19/2019 US US BREAST LT COMPLETE from 08/19/2019 FINDINGS: Homogeneous fibroglandular tissue. No discrete mass or cyst. Decreased echogenicity consistent with mild scarring noted at the 7 o'clock region. IMPRESSION: Unremarkable left breast ultrasound. Dictated by: Cristobal Crow MD 08/24/2020 11:24 Cristobal Crow MD in [facility] 08/24/2020 11:24
--- NOTE | 2020-08-20 10:31 | US_ITS ---
PROCEDURE: US BREAST RT COMPLETE CLINICAL INDICATION: Breast cancer follow up COMPARISON: US US BREAST RT COMPLETE from 08/19/2019 US US BREAST LT COMPLETE from 08/20/2020 FINDINGS: No discrete mass or cyst apparent. Small nodes are present in the axilla nonspecific. IMPRESSION: Unremarkable right breast ultrasound Dictated by: Cristobal Crow MD 08/24/2020 11:25 Cristobal Crow MD in [place] 08/24/2020 11:25
--- NOTE | 2020-08-20 10:31 | MM_ITS ---
PROCEDURE: MM DIG SCREENING MAMM BI W/CAD Digital Breast Tomosynthesis Included CLINICAL INDICATION: screening yearly There has been a previous lumpectomy left breast for malignancy COMPARISON: MG DXBI MM Dig mamm BI DX w/CAD from 12/30/2017 MG DIG MAMM-DX TONYA W ADD VIEWS from 08/16/2018 MG MM DIG SCREENING MAMM BI W/CAD from 08/19/2019 TECHNIQUE: Standard CC and MLO images and 3D Tomosynthesis was obtained. R2 CAD reviewed. FINDINGS: Moderate diffuse fibroglandular densities are seen in both breast. There is stable prominent deformity central lower portion of the left breast secondary to lumpectomy. There are couple of benign-appearing microcalcifications in each breast. There are stable fatty replaced nodes right axilla. There is no new or suspicious lesion in either breast and no suspicious microcalcifications. IMPRESSION: Fibrofatty parenchyma with stable prominent postlumpectomy changes left breast and no suspicious lesions seen BI-RAD Category: 2 Benign Finding(s) FOLLOW-UP: 1YR 1 Year Follow-up (A letter has been sent to the patient regarding results of the study.) Dictated by: Dr. Jeanmarie Florentino MD 08/22/2020 08:13 Dr. Jeanmarie Florentino MD in [place] 08/22/2020 08:13
== END ==
PROVIDERS: PCP Family Medicine; Visit Provider Surgery
DX: Z12.31 Encounter for screening mammogram for malignant neoplasm of breast (principal); Z08 Encounter for follow-up examination after completed treatment for malignant neoplasm; Z85.3 Personal history of malignant neoplasm of breast
CPT/HCPCS: 76641; 77063; 77067

== ENCOUNTER → 2020-10-23 07:58 | Outpatient (CLI) | payer BC, SELFPAY ==
--- NOTE | 2020-10-23 08:06 | US_ITS ---
PROCEDURE: US ABDOMEN LIMITED CLINICAL INDICATION: ABNORMAL LIVER ENZYMES COMPARISON: CT ABDPELW CT abdomen pelvis w con from 06/18/2017 FINDINGS: PANCREAS: Unremarkable. No obvious mass or abnormal fluid collection. No ductal dilatation LIVER: Diffuse increased echogenicity of the liver with poor through transmission of sound consistent with hepatic steatosis. No focal liver lesion demonstrated. There is appropriate direction of blood flow within non dilated portal vein. RIGHT KIDNEY: Unremarkable. Normal size and echogenicity. No hydronephrosis. There is a benign-appearing 3 cm cyst along the lower pole the right kidney GALLBLADDER: Prior cholecystectomy. No biliary dilatation. IMPRESSION: Fatty liver Right renal cyst Prior cholecystectomy otherwise negative Dictated by: Cristobal Crow MD 10/23/2020 15:08 Cristobal Crow MD in [place] 10/23/2020 15:08
== END ==
PROVIDERS: PCP Family Medicine; Visit Provider Family Medicine
DX: R74.8 Abnormal levels of other serum enzymes (principal)
CPT/HCPCS: 76705

== ENCOUNTER 2021-06-09 15:42 | Emergency (ER) | payer BC, SELFPAY ==
[2021-06-09 16:05] VITALS: BP 140/95; PULSE 93; RESP 18; TEMP 38.4; O2SAT 98; BMI 38.1
[2021-06-09 16:24] LABS: UTC Influenza A Antigen Positive (Negative)
[2021-06-09 16:25] LABS: UTC Influenza B Antigen Negative (Negative)
--- NOTE | 2021-06-09 16:35 | HMH.EDUTC ---
[facility] [place] Clinical Impression: Influenza A Disposition: Home, Self-Care Condition on Discharge: Good Instructions: Influenza, DI for Influenza -- Adult Additional Instructions: Drink plenty of fluids. Take tylenol or ibuprofen for pain or fever. Take the medications as directed. Follow up with your regular doctor. GO TO THE ER FOR ANY WORSENING SYMPTOMS Prescriptions: Ondansetron [Zofran 4mg ODT] 4 mg PO Q8HP PRN #9 tab PRN Reason: Nausea Transmission Status: Received by [id number] Benzonatate [Benzonatate 100mg cap] 100 mg PO TIDP PRN #30 cap PRN Reason: Cough Transmission Status: Received by [id number] Oseltamivir Phosphate [Tamiflu 75mg Capsule] 75 mg PO BID #10 cap Transmission Status: Received by [id number] Referrals: Jazlyn Hull MD [Primary Care Provider] - Time of Disposition: 16:42 Medical Decision Making - Medical Records Medical records reviewed: No: I reviewed the patient's medical records. - Tej Inquiry Pt receiving controlled substance: No Vital Signs: 06/09/21 16:05 06/09/21 16:49 Temperature 101.1 F H 99.4 F Temperature Source Oral Pulse Rate 93 H Pulse Rate [Left] 93 H Respiratory Rate 18 18 Blood Pressure 140/95 H Blood Pressure [Right Arm] 140/95 H Blood Pressure Mean [Right Arm] 110 02 Sat by Pulse Oximetry 98 - Lab Data Lab Results 06/09/21 16:05: Influenza Type A Ag Positive A, Influenza Type B Ag Negative [facility] [place] HPI - General Stated complaint: jaw and teeth pain, fever, congestion Time Seen by Provider: 06/09/21 16:35 Mode of Arrival: Ambulatory Source of Information: Patient Limitations: No Limitations Description of Symptoms (Recalled from Triage Doc. by RN): pt c/o a fever, sinus pressure/drainage, and sinus pain. HEENT Symptoms (Recalled from RN notes): No Resp Symptoms (Recalled from RN notes): No Skin Symptoms (Recalled from RN notes): No MS Symptoms (Recalled from RN notes): No Functional Status (Recalled from RN notes): wnl - History of Present Illness Provider Complaint: She states that since yesterday, she has had chills, fever, body aches, sore throat and a cough. - Related Data Home Medications Medication Instructions Recorded Confirmed Furosemide [Furosemide 20mg Tab] 20 mg PO DAILY 04/27/17 08/27/20 alprazolam 0.25 mg tablet 0.25 mg PO ONCE PRN tab 12/23/17 08/27/20 metoprolol succinate 50 mg 50 mg PO DAILY tab 08/23/18 08/27/20 tablet,extended release 24 hr Previous Rx's Medication Instructions Recorded Benzonatate [Benzonatate 100mg 100 mg PO TIDP PRN #30 cap 06/09/21 cap] Ondansetron [Zofran 4mg ODT] 4 mg PO Q8HP PRN #9 tab 06/09/21 Oseltamivir Phosphate [Tamiflu 75 mg PO BID #10 cap 06/09/21 75mg Capsule] Allergies Allergy/AdvReac Type Severity Reaction Status Date / Time succinylcholine Allergy Severe CAN'T Verified 08/27/20 09:21 [SUCCINYLCHOLINE] METABOLIZE DRUG , COULDN'T WAKE UP-ON VENT FOR 3 DAYS adhesive tape [ADHESIVE TAPE] Allergy Intermediate I-RASH/BLISTERING Verified 08/27/20 09:21 OF SKIN (TRANSPORE TAPE) codeine [CODEINE] Allergy Mild -- Verified 08/27/20 09:21 - Worker's Comp Is this a Worker's Comp case?: No [facility] History - Hepatitis A Screen Drug use history?: No High risk sexual behaviors?: No History of sexually transmitted infection?: No Currently employed?: No Childcare worker?: No Do you have indoor plumbing?: Yes Do you have electricity?: Yes Attestation statement:: This patient has been screened for Hepatitis A risk factors. I have reviewed the patient's past medical history: Yes Medical History: Reports:: Anxiety, Arrhythmia, Cancer Denies:: Diabetes Mellitus Type 1, Diabetes Mellitus Type 2, Internal Pacemaker, Lung Disease, MRSA, Seizures Other Medical History: Reports: Anemia, Chemotherapy, Fibromyalgia, Radiation Therapy.
[2021-06-09 16:49] VITALS: BP 140/95; PULSE 93; RESP 18; TEMP 37.4
== END 2021-06-09 16:56 | disposition home or self-care (01) ==
PROVIDERS: Emergency Provider Nurse Practitioner Family; PCP Family Medicine
DX: J10.1 Influenza due to other identified influenza virus with other respiratory manifestations (principal); R68.84 Jaw pain; K08.89 Other specified disorders of teeth and supporting structures; I49.9 Cardiac arrhythmia, unspecified; M79.7 Fibromyalgia; M19.90 Unspecified osteoarthritis, unspecified site; F41.9 Anxiety disorder, unspecified; Z88.5 Allergy status to narcotic agent; Z88.8 Allergy status to other drugs, medicaments and biological substances; Z91.048 Other nonmedicinal substance allergy status; Z92.21 Personal history of antineoplastic chemotherapy; Z92.3 Personal history of irradiation; Z85.9 Personal history of malignant neoplasm, unspecified; Z82.49 Family history of ischemic heart disease and other diseases of the circulatory system; Z83.438 Family history of other disorder of lipoprotein metabolism and other lipidemia; Z80.9 Family history of malignant neoplasm, unspecified
CPT/HCPCS: 87804; 99213; G0463

== ENCOUNTER → 2022-01-08 14:54 | Outpatient (CLI) | payer BC, SELFPAY ==
--- NOTE | 2022-01-08 14:54 | US_ITS ---
PROCEDURE INFORMATION: Exam: US Left Breast, Complete, Abscess Evaluation US Right Breast, Complete, Abscess Evaluation MG Bilateral Screening 3D Mammography Exam date and time: 01/08/2022 2:48 PM Age: 56 years old Clinical indication: Screening mammogram and ultrasound. History of left lumpectomy for carcinoma. TECHNIQUE: Imaging protocol: Left Ultrasound of the breast with image documentation. All quadrants and retroareolar regions evaluated. Exam focused on the search and evaluation for abscess. Exam is an emergent request and a non-BIRADS study. Right Ultrasound of the breast with image documentation. All quadrants and retroareolar regions evaluated. Exam focused on the search and evaluation for abscess. Exam is an emergent request and a non-BIRADS study. Bilateral Screening tomosynthesis and 2D mammography including computer-aided detection (CAD) when performed. COMPARISON: 1. MG MM DIG SCREENING MAMM BI W/CAD 08/20/2020 10:34 AM 2. MG MM DIG SCREENING MAMM BI W/CAD 08/19/2019 9:05 AM 3. MG DIG MAMM-DX TONYA W ADD VIEWS 08/16/2018 2:45 PM 4. MG DXBI MM Dig mamm BI DX w/CAD 12/30/2017 1:42 PM FINDINGS: MAMMOGRAPHY: There are scattered areas of fibroglandular density. Stable postoperative findings are present within the left breast and left axilla. Stable benign-appearing calcifications are present. No new mass, architectural distortion, or suspicious calcifications have developed to suggest malignancy. No axillary adenopathy. Bilateral complete breast ULTRASOUND: Shadowing along the lower inner left breast is present, in the location of postoperative scarring. No suspicious solid or cystic mass is present. No benign-appearing solid or cystic mass is present. No suspicious architectural distortion or shadowing is present. No axillary adenopathy is present. IMPRESSION: No mammographic or sonographic evidence of malignancy. Annual screening is recommended unless otherwise clinically indicated. ASSESSMENT: Screening mammogram BIRADS: BI-RADS category 2: Benign Overall BIRADS: BI-RADS category 2: Benign
== END ==
PROVIDERS: PCP Family Medicine; Visit Provider Surgery
DX: Z12.31 Encounter for screening mammogram for malignant neoplasm of breast (principal); Z85.3 Personal history of malignant neoplasm of breast
CPT/HCPCS: 76641; 77063; 77067

== ENCOUNTER → 2022-06-25 06:56 | Outpatient (CLI) | payer BC, SELFPAY ==
--- NOTE | 2022-06-25 07:04 | NM_ITS ---
APPROVED REPORT Liner Reroll Tender: ADDENDUM: SPECT Nuclear cardiac stress test performed on 06/25/2022. Please refer to prior scanned report regarding study technique. FINDINGS: -Resting and supine stress imaging demonstrate a medium-sized, mild, fixed anterior perfusion defect extending from the base towards the distal anterior LV wall. This defect persists in prone stress imaging, likely representing a true perfusion defect. -Of note, there is a high transient ischemic dilatation ratio (TID=1.3), which may be suggestive of underlying multivesel disease or balanced ischemia. -Gated imaging demonstrates normal LV global systolic function. There is mild hypokinesis of the mid to distal anterior LV wall. LVEF is calculcated at 63% Conclusion 1. ADDENDUM TO CONCLUSION: 2. -Medium-sized, mild, fixed anterior perfusion defect extending from the base towards the distal anterior LV wall. 3. -Of note, there is a high transient ischemic dilatation ratio (TID=1.3), which may be suggestive of underlying multivesel disease or balanced ischemia. 4. -Gated imaging demonstrates normal LV global systolic function. There is mild hypokinesis of the mid to distal anterior LV wall. LVEF is calculcated at 63% Electronically signed by : Brielle Torres, 07/18/2022 22:58:50
== END ==
PROVIDERS: PCP Family Medicine; Visit Provider Family Medicine
DX: R53.83 Other fatigue (principal); R60.9 Edema, unspecified
CPT/HCPCS: 78452; 93017; A9502; J2785

== ENCOUNTER 2022-07-31 11:24 | Day surgery (SDC) | payer BC, SELFPAY ==
[2022-07-31] VITALS (9 sets, daily range): BP systolic 96–166; BP diastolic 65–94; PULSE 66–86; RESP 17–20; O2SAT 92–95; BMI 37.5
--- NOTE | 2022-07-31 07:15 | IR_ITS ---
APPROVED REPORT Patient Location: Outpatient Tool Room Supervisor: ROBERTO Davis RT (R) PROCEDURES Left heart catheterization Left ventriculogram Selective coronary angiogram INDICATION Angina pectoris, Abnormal Myoview Informed consent was obtained prior to the procedure. COMPLICATIONS None Estimated Blood Loss: Less than 10 ML TECHNIQUE One percent lidocaine used to anesthetize the right anterior aspect of the wrist. The right radial artery was accessed via the Seldinger technique. A 6 Lithuanian sheath was placed in the right radial artery. 150 mg magnesium sulfate, 800 mcg of nitroglycerin, 1mg Lidocaine and 5000 U Heparin were given through the arterial sheath. The papa catheter was also used to perform left heart catheterization, left ventriculogram and selective coronary angiogram. At the end of the procedure the sheath was removed good hemostasis was achieved using Traclet band, patient was transferred to the postop holding area in stable condition. ANGIOGRAPHIC RESULTS The left main artery Normal The left anterior descending artery Has mild proximal 10% luminal irregularity The circumflex artery Mild 10% luminal irregularities The right coronary artery Dominant normal The DOWELL ventriculogram reveals Normal 65% The left ventricular end-diastolic pressure 10 mmHg IMPRESSION Mild luminal irregularities Normal ejection fraction Normal left ventricular NaSal pressure PLAN 1. Risk factor modification 2. Medical management Electronically signed by : Vinayak Ingram MD 07/31/2022 14:20:38
[2022-07-31 13:16] LABS: Basophils # 0.1 K/mm3 (0-0.2); Basophils % 0.8 % (0.1-2.0); Eosinophils # 0.1 K/mm3 (0.0-0.4); Eosinophils % 1.7 % (0.1-12.0); Hematocrit 47.1 % (37.0-47.0); Hemoglobin 15.4 g/dL (12.2-16.2); Lymphocytes # 2.4 K/mm3 (0.7-4.5); Lymphocytes % 31.9 % (10-50); Mean Corpuscular HGB Conc 32.6 g/dL (31.8-35.4); Mean Corpuscular Hemoglobin 30.1 pg (27.0-31.2); Mean Corpuscular Volume 92.3 fl (81-99); Mean Platelet Volume 8.4 fl (7.4-10.4); Monocytes # 0.6 K/mm3 (0.1-1.0); Monocytes % 7.8 % (1.7-9.3); Neutrophils # 4.4 K/mm3 (1.8-7.8); Neutrophils % 57.8 % (37.0-80.0); Platelet Count 225 K/mm3 (142-424); Red Blood Count 5.11 M/mm3 (4.20-5.40); White Blood Count 7.6 K/mm3 (4.8-10.8)
[2022-07-31 13:24] LABS: Anion Gap 12.5 mEq/L (5-15); Blood Urea Nitrogen 15 mg/dl (7-17); Calcium 8.3 mg/dl (8.4-10.2); Carbon Dioxide 27 mmol/L (22.0-30.0); Chloride 106 mmol/L (98-107); Creatinine Clearance Estimated 147 mL/min (50-200); Estimated Glomerular Filt Rate 103 ml/min (>60); GFR (African American) 125 ML/MIN (>60); Glucose 124 mg/dl (74-100); Potassium 3.5 mmoL/L (3.5-5.1); Sodium 142 mmol/L (136-145)
== END 2022-07-31 16:34 | disposition home or self-care (01) ==
PROVIDERS: PCP Family Medicine; Visit Provider Internal Medicine
DX: I20.8 Other forms of angina pectoris (principal); Z82.49 Family history of ischemic heart disease and other diseases of the circulatory system; I10 Essential (primary) hypertension; E78.5 Hyperlipidemia, unspecified; R94.39 Abnormal result of other cardiovascular function study; Z79.899 Other long term (current) drug therapy
CPT/HCPCS: 80048; 85025; 93458; 99152; C1725; C1760; C1769; J1644; Q9967

== ENCOUNTER → 2022-08-19 08:39 | Outpatient (CLI) | payer BC, SELFPAY | PROVIDERS: PCP Family Medicine; Visit Provider Family Medicine | DX: M79.622 Pain in left upper arm (principal); R94.39 Abnormal result of other cardiovascular function study | CPT/HCPCS: 93306 ==

== ENCOUNTER → 2022-10-13 16:57 | Outpatient (CLI) | payer BC, SELFPAY ==
--- NOTE | 2022-10-13 17:09 | XR_ITS ---
PROCEDURE INFORMATION: Exam: XR Cervical Spine Exam date and time: 10/13/2022 5:10 PM Age: 57 years old Clinical indication: Neck pain; Additional info: Pain on left side TECHNIQUE: Imaging protocol: Radiologic exam of the cervical spine. Views: 4 or 5 views. COMPARISON: BONEWB NM bone scan whole body 12/30/2017 12:39 PM FINDINGS: Bones/joints: No acute fracture. Normal alignment. Maintained craniocervical junction. C4-C5 and C5-C6 intervertebral disc space narrowing with marginal osteophytosis uncovertebral hypertrophy and facet arthropathy. Mild left C4-C5 osseous neural foraminal narrowing. Soft tissues: Unremarkable. IMPRESSION: 1. No acute osseous findings. 2. C4-C5 and C5-C6 spondylosis. Mild left C4-C5 osseous neural foraminal narrowing.
== END ==
PROVIDERS: PCP Family Medicine; Visit Provider Family Medicine
DX: M54.2 Cervicalgia (principal)
CPT/HCPCS: 72050

== ENCOUNTER 2022-12-19 10:27 | Day surgery (SDC) | payer BC, SELFPAY ==
[2022-12-19 10:56] VITALS: BP 164/58; PULSE 72; RESP 18; TEMP 36.8; O2SAT 95; BMI 37.8
--- NOTE | 2022-12-19 11:07 | EXP.ANES.CKL ---
[facility] Disclaimer: The information contained in this section may have been updated after the patient was seen, as this information can be updated by other users. Medical History Acid reflux Family history of early CAD History of breast cancer in female Surgical History History of mastectomy History of mastectomy Hx of section Hx of cholecystectomy Hx of hernia repair Family History Other Family history of MS (myocardial infarction) Family hx of lung cancer Social History Smoking Status: Former smoker second hand exposure: No alcohol intake: never substance use type: denies use current occupational status: employed Travel in the last 8 weeks: None household members: significant other housing: house current occupation: [employer] current occupational exposures/hazards: No caffeine: Yes [facility] Anesthesia Checklist Patient Identification Patient Identification: Arm Band and Verbal (Name & ) Structural Data Admitted From: Home Planned Operative Procedure/s: Colonoscopy Consent for Planned Operative Procedure(s) Verified: Yes NPO Status Verified Time NPO: 00:00 Additional verifications Anesthesia Reactions: Yes (Nauseous) Hx Blood Transfusions: No Blood Transfusion Reaction: No Airway Assessment Mallampati Score:: Class III C-Spine Mobility Assessed: Yes TMJ Mobility Assessed: Yes Dentition: Good Dentition Neurological Assessment Level of Consciousness: Awake Hx Seizures: No Numbness or tingling in extremities: No Anesthesia Plan Anesthesia Risk discussed: Yes Anesthesia Plan: Verified ASA Class: III Anesthesia Type: MAC
--- NOTE | 2022-12-19 11:10 | HMH.SCOPE ---
Procedure: Date: 12/19/22 Patient Date of :: 1965 Procedure Performed:: Total colonoscopy to terminal ileum Indications:: Patient is a 57-year-old female well-known to me. Previously had treated her for breast cancer. She is scheduled for screening colonoscopy. She has a family history of colon cancer in her paternal grandmother and paternal great grandmother. I had performed a initial screening colonoscopy on her 11/30/2018 at which time she had a sigmoid tubular adenoma. Performing Provider:: Coy Webster MD Referring Provider:: Titus Hull MD Sedation:: MAC sedation Procedure:: Patient history was obtained and appropriate physical examination was performed. Patient's medications and allergies were reviewed. Informed consent was obtained after explaining the benefits, alternatives, and risks of the procedure including, but not limited to, bleeding, perforation, missed lesions, and adverse reaction to anesthesia medications. Patient was transported to endoscopy procedure room. Patient was connected to monitoring devices. Throughout the procedure the patient's blood pressure, pulse, and oxygen saturations were monitored continuously. Patient identification and planned procedure were verified by the staff. Patient was positioned in lateral decubitus position. Digital anorectal exam was performed. Variable stiffness Olympus colonoscope was inserted and advanced under direct visualization to the cecum. Adequacy of the colonic preparation was noted. The colonoscope was advanced a short distance into the terminal ileum. The colonoscope was then slowly withdrawn while carefully examining the color, texture, anatomy, and integrity of the mucosoa circumferentially. Within the rectum retroflexion was performed. Colonoscope was then withdrawn. . . Findings:: She had very rare diverticuli. Otherwise unremarkable. Recommendations:: Repeat colonoscopy 5 years due to family history and personal history of adenomatous polyps Complications:: None immediately apparent Estimated blood obtained (mL): 0 Colonoscopy Component Colonoscopy Component Was a colonoscopy performed during today's procedure?: Yes Recommended follow up colonoscopy of at least 10 years?: No If no, follow up colonoscopy recommended in ___ years?: 5 Reason for not recommending >/= 10 yr follow-up interval?: See above
[2022-12-19 11:14] VITALS: O2SAT 94
[2022-12-19 11:40] VITALS: BP 90/43; PULSE 83; RESP 18; TEMP 36.6; O2SAT 94
[2022-12-19 11:50] VITALS: BP 108/49; PULSE 76; RESP 16; O2SAT 99
[2022-12-19 12:00] VITALS: BP 115/49; PULSE 63; RESP 16; O2SAT 98
[2022-12-19 12:10] VITALS: BP 139/66; PULSE 60; RESP 16; O2SAT 96
== END 2022-12-19 12:20 | disposition home or self-care (01) ==
LOC: OUTP 10:27
PROVIDERS: PCP Family Medicine; Visit Provider Surgery
PROC: 0DJD8ZZ Inspection of Lower Intestinal Tract, Via Natural or Artificial Opening Endoscopic (ICD-10-PCS; CPT 45378; principal; 2022-12-19 11:30)
DX: Z12.11 Encounter for screening for malignant neoplasm of colon (principal); Z80.0 Family history of malignant neoplasm of digestive organs; Z85.3 Personal history of malignant neoplasm of breast; Z86.010 Personal history of colon polyps
CPT/HCPCS: 45378; J2704

== ENCOUNTER → 2023-02-24 13:20 | Outpatient (CLI) | payer BC, SELFPAY ==
--- NOTE | 2023-02-24 13:21 | US_ITS ---
PROCEDURE INFORMATION: Exam: US Right Breast, Complete US Left Breast, Complete MG Bilateral Screening 3D Mammography Exam date and time: 02/24/2023 1:18 PM Age: 58 years old Clinical indication: Screening examination; Personal history of left breast cancer with lumpectomy . 7 o'clock right breast palpable lump is reported. TECHNIQUE: Imaging protocol: Complete ultrasound of all four quadrants of the right breast and the retroareolar regions, including ultrasound of the axilla when performed. Complete ultrasound of all four quadrants of the left breast and the retroareolar regions, including ultrasound of the axilla when performed. Bilateral Screening tomosynthesis and 2D mammography including computer-aided detection (CAD) when performed. COMPARISON: 1. MG MM DIG SCREENING MAMM BI W/CAD 01/08/2022 2:48 PM 2. MG MM DIG SCREENING MAMM BI W/CAD 08/20/2020 10:34 AM 3. MG MM DIG SCREENING MAMM BI W/CAD 08/19/2019 9:05 AM 4. MG DIG MAMM-DX TONYA W ADD VIEWS 08/16/2018 2:45 PM FINDINGS: MAMMOGRAPHY: There are scattered areas of fibroglandular density. There are extensive stable postoperative findings within the left breast and left axilla No new mass, architectural distortion, or suspicious calcifications have developed within either breast to suggest malignancy. No axillary adenopathy. ULTRASOUND: Bilateral 4 quadrant and retroareolar ultrasound with bilateral axillary ultrasound There is stable benign-appearing scarring along the lower inner left breast region of lumpectomy. In the right 7 o'clock breast, region of palpable concern as directed by the patient, only normal glandular structures are present Otherwise, only normal glandular structures are present in the regions assessed No suspicious solid or cystic mass is present. No benign-appearing solid or cystic mass is present. No architectural distortion or shadowing is present. No axillary adenopathy is present. IMPRESSION: No mammographic or sonographic evidence of malignancy. Annual screening is recommended unless otherwise clinically indicated. The patient was informed of these findings and recommendations. ASSESSMENT: Screening mammogram BIRADS: BI-RADS category 2: Benign Overall BIRADS: BI-RADS category 2: Benign
== END ==
LOC: RAD 13:21
PROVIDERS: PCP Family Medicine; Visit Provider Surgery
DX: Z85.3 Personal history of malignant neoplasm of breast (principal); Z87.891 Personal history of nicotine dependence
CPT/HCPCS: 76641; 77063; 77067

== ENCOUNTER 2024-03-14 13:43 | Outpatient (CLI) | payer BC, SELFPAY ==
--- NOTE | 2024-03-14 | US_ITS ---
PROCEDURE INFORMATION: Exam: US Right Breast, Complete US Left Breast, Complete MG Bilateral Screening 3D Mammography Exam date and time: 03/14/2024 1:40 PM Age: 59 years old Clinical indication: Screening. Personal history of left breast cancer TECHNIQUE: Imaging protocol: Complete ultrasound of all four quadrants of the right breast and the retroareolar regions, including ultrasound of the axilla when performed. Complete ultrasound of all four quadrants of the left breast and the retroareolar regions, including ultrasound of the axilla when performed. Bilateral Screening tomosynthesis and 2D mammography including computer-aided detection (CAD) when performed. COMPARISON: 1. MG MM DIG SCREENING MAMM BI W/CAD 02/24/2023 1:18 PM 2. MG MM DIG SCREENING MAMM BI W/CAD 01/08/2022 2:48 PM 3. MG MM DIG SCREENING MAMM BI W/CAD 08/20/2020 10:34 AM 4. MG MM DIG SCREENING MAMM BI W/CAD 08/19/2019 9:05 AM FINDINGS: MAMMOGRAPHY: Breast composition: There are scattered areas of fibroglandular density. Mass: None. Architectural distortion: Stable left architectural distortion deformity status post lumpectomy. Calcifications: No suspicious calcifications. Asymmetric density: None. Skin thickening: None. Axillary adenopathy: None. Stable left axillary distortion deformity. Other: No skin marker placed at palpable concern, no mammographic findings in the lower outer quadrant (palpable concern indicated at 7 o'clock on sonography). ULTRASOUND: Bilateral sonography, all 4 quadrants, retroareolar and the axilla. On the right, at the palpable concern at 7 o'clock, no sonographic findings demonstrated. Sonographically unremarkable axillary lymph node. On the left, at lumpectomy scar in the lower inner quadrant, minimal linear shadowing extending to the skin. Sonographically unremarkable axillary lymph node. IMPRESSION: See comment On the sonography images, a palpable concern is annotated on the right at 7 o'clock, no mammographic or sonographic findings.Further evaluation of a palpable abnormality should be based on clinical grounds regardless of radiographic findings or lack thereof. No mammographic or sonographic evidence of malignancy. Annual screening is recommended unless otherwise clinically indicated. ASSESSMENT: BI-RADS Category 2: Benign.
== END 2024-03-14 23:59 | disposition home or self-care (01) ==
LOC: RAD 13:44
PROVIDERS: PCP Family Medicine; Visit Provider Family Medicine
DX: Z12.31 Encounter for screening mammogram for malignant neoplasm of breast (principal); Z85.3 Personal history of malignant neoplasm of breast
CPT/HCPCS: 76641; 77063; 77067

== ENCOUNTER 2024-04-14 15:28 | Outpatient (CLI) | payer BC, SELFPAY ==
--- NOTE | 2024-04-14 15:34 | XR_ITS ---
FINAL REPORT CLINICAL HISTORY: BRONCHITIS COMPARISON: 06/03/2018 FINDINGS: 2 views of the chest were obtained . There has been interval removal of right sided chest port. The heart is normal in size. The mediastinum is within normal limits. The lungs are clear. There is no pneumothorax. Osseous structures are unremarkable. IMPRESSION: No acute cardiopulmonary process. Reviewed, Interpreted and Dictated by Jazlyn Romero MD Transcribed by Kenia Ko Authenticated and [facility]
== END 2024-04-14 23:59 | disposition home or self-care (01) ==
LOC: RAD 15:29
PROVIDERS: PCP Family Medicine; Visit Provider Family Medicine
DX: J20.9 Acute bronchitis, unspecified (principal)
CPT/HCPCS: 71046

== ENCOUNTER 2024-04-21 15:38 | Emergency (ER) | payer BC, SELFPAY ==
[2024-04-21 15:57] VITALS: BP 153/87; PULSE 105; RESP 18; TEMP 37.7; O2SAT 98; BMI 37.8
--- NOTE | 2024-04-21 16:09 | PC.NURSE ---
pt brought back to RM 12 from triage. ASSESSMENT. pt states she was dx with flu A 3wks ago. pt states she went to the [facility] on 04/11 due to not feeling any better. She states they confirmed she had the flu but no other tests were done. pt states she then went to see on 04/14. He put her on methylprednisolone and levofloaxin. She has had epigasteric abd pain that is stabbing in nature and /. pt also reports N/V/D. pt reports her stool is black and liquid. pt states she was seen again by on 04/18. She states she has not had any relief and thinks she may need IVF. pt also reports she is a newly diagnosed diabetic. pt was started on ozempic only at this time. pt states due to being sick from the flu she has not taken the ozempic in 2wks. no other complaints at this time. no needs voiced. call [facility] in reach.
--- NOTE | 2024-04-21 16:34 | CT_ITS ---
PROCEDURE INFORMATION: Exam: CT Abdomen And Pelvis With Contrast Exam date and time: 04/21/2024 5:40 PM Age: 59 years old Clinical indication: Other: Epigastric pain/n/v/diarrhea TECHNIQUE: Imaging protocol: Computed tomography of the abdomen and pelvis with contrast. Radiation optimization: All CT scans at this facility use at least one of these dose optimization techniques: automated exposure control; mA and/or kV adjustment per patient size (includes targeted exams where dose is matched to clinical indication); or iterative reconstruction. Contrast material: ISOVUE; Contrast volume: 75 ml; Contrast route: IV; COMPARISON: ABDPELW CT abdomen pelvis w con 06/18/2017 9:23 AM FINDINGS: Lungs: Minimal atelectasis/scarring. Diaphragm: Small hiatal hernia. Liver: Fatty infiltration. Gallbladder and biliary ducts: Cholecystectomy. No significant ductal dilation. Pancreas: Unremarkable. No ductal dilation. Spleen: No splenomegaly. Adrenal glands: No mass. Kidneys and ureters: Probable 3.3 cm RIGHT renal cyst. No significant hydronephrosis. Stomach and bowel: Fluid/mild mucosal enhancement of small bowel. Fluid/loose stool within large bowel. Apparent mild mural/fold thickening of few loops of proximal and mid small bowel. No associated inflammatory stranding. Few mildly distended loops of small bowel, likely ileus. Appendix: Normal caliber. No inflammation. Intraperitoneal space: No significant fluid collection. No definite free air. Vasculature: Minimal atherosclerotic disease. No aneurysm. Lymph nodes: No pathologically enlarged lymph nodes. Urinary bladder: Unremarkable. Reproductive: Hysterectomy. Bones/joints: No acute fracture. Soft tissues: Unremarkable. IMPRESSION: Probable mild enteritis. Clinical correlation is needed. COMMENTS: Consistent with the [employer]'s Incidental Findings Committee white paper (J Am Alex Radiol 2018): Any incidental renal lesion less than 1 cm or classified as too small to characterize, or any incidental cystic renal lesion characterized as simple-appearing, is likely benign. No follow-up imaging is recommended for these lesions per consensus recommendations based on imaging criteria.
--- NOTE | 2024-04-21 16:53 | ECG_ITS ---
APPROVED REPORT Exam: Resting ECG HR:90 bpm ECG Measurements Heart Rate 90 AXES WI 150 P 51 QRSd 77 QRS 14 QT 335 T 16 QTc 382 Conclusion SINUS RHYTHM WITH SINUS ARRHYTHMIA NONSPECIFIC T-WAVE ABNORMALITY BORDERLINE ECG UNCONFIRMED REPORT Electronically signed by : AARON MARTINEZ, 04/21/2024 23:55:42
[2024-04-21] MEDS: FAMOTIDINE 20MG/2ML VIAL 20 MG IV (16:57)
[2024-04-21] MEDS: LACTATED RINGERS 1000ML 1,000 ML 999 ML IV (16:57)
[2024-04-21] MEDS: KETOROLAC 30MG/ML VIAL 15 MG IV (16:57)
[2024-04-21] MEDS: ONDANSETRON 4MG/2ML VIAL 4 MG IV (16:57)
[2024-04-21] MEDS: ACETAMINOPHEN 1,000MG/100ML VIAL 1000 MG IV (16:57)
[2024-04-21 17:28] LABS: Basophils % 0.3 % (0.1-2.0); Eosinophils # 0.3 K/mm3 (0.0-0.4); Eosinophils % 3.1 % (0.1-12.0); Hematocrit 49.2 % (37.0-47.0); Lymphocytes # 2.5 K/mm3 (0.7-4.5); Lymphocytes % 24.1 % (10-50); Mean Corpuscular HGB Conc 34.6 g/dL (31.8-35.4); Mean Corpuscular Hemoglobin 30.6 pg (27.0-31.2); Mean Corpuscular Volume 88.5 fl (81-99); Mean Platelet Volume 10.4 fl (7.4-10.4); Monocytes # 0.7 K/mm3 (0.1-1.0); Monocytes % 7.2 % (1.7-9.3); Neutrophils # 6.7 K/mm3 (1.8-7.8); Neutrophils % 65.1 % (37.0-80.0); Platelet Count 247 K/mm3 (142-424); Red Blood Count 5.56 M/mm3 (4.20-5.40); Red Cell Distribution Width 12.4 % (11.5-17.5); White Blood Count 10.2 K/mm3 (4.8-10.8)
[2024-04-21 17:33] LABS: Albumin Level 4.4 g/dl (3.5-5.0); Chloride 111 mmol/L (98-107)
[2024-04-21 17:34] LABS: Potassium 3.6 mmoL/L (3.5-5.1); Sodium 140 mmol/L (136-145)
[2024-04-21 17:36] LABS: Alanine Aminotransferase 45 U/L (12-78); Albumin/Globulin Ratio 1.2 (1.1-1.8); Alkaline Phosphatase 122 U/L (38-126); Anion Gap 13.6 mEq/L (5-15); Aspartate Amino Transferase 71 U/L (14-36); Bilirubin,Total 1.5 mg/dl (0.2-1.3); Blood Urea Nitrogen 14 mg/dl (7-17); Carbon Dioxide 19 mmol/L (22.0-30.0); Creatinine Clearance Estimated 124 mL/min (50-200); Estimated Glomerular Filt Rate 86 ml/min (>60); GFR (African American) 104 ML/MIN (>60); Globulin 3.8 g/dL (1.3-3.2); Lipase 111 U/L (23-300); Phosphorous 2.8 mg/dl (2.5-4.5); Total Protein,Serum 8.2 g/dl (6.3-8.2)
[2024-04-21 17:37] LABS: Calcium 8.6 mg/dl (8.4-10.2); Glucose 108 mg/dl (74-100); Magnesium 1.8 mg/dl (1.6-2.3)
--- NOTE | 2024-04-21 17:42 | ED_ITS ---
Discharge Plan Disposition Patient Disposition: Home, Self-Care Condition: Good Prescriptions Prescriptions: New ondansetron 4 mg tablet,disintegrating 4 mg PO Q8H PRN (Reason: nausea and vomiting) 4 Days Qty: 12 0RF famotidine [Pepcid] 20 mg tablet 20 mg PO BID Qty: 10 0RF No Action alprazolam 0.5 mg tablet 0.5 mg PO TID Patient Comments: TAKE ONE TABLET BY MOUTH THREE TIMES DAILY MAY CAUSE DROWSINESS ondansetron 4 mg tablet,disintegrating 4 mg PO Q8H PRN (Reason: nausea and vomiting) Qty: 20 0RF metoprolol succinate 50 mg tablet extended release 24 hr 50 mg PO DAILY Ozempic 0.25 mg or 0.5 mg (2 mg/3 mL) pen injector 0.5 mg SQ WEEKLY Patient Comments: INJECT 0.25MG SUBCUTANEOUSLY ONCE WEEKLY Referrals Follow up/Referrals: Jazlyn Hull MD [Primary Care Provider] - See instructions Activity Restrictions/Add. Instructions Additional Instructions/Restrictions: You were evaluated in the emergency department today. You have blood in your urine, for which I recommend close follow-up with your primary care provider. They may recommend referral to urology if you continue to have blood in your urine. Labs otherwise are reassuring. Your CT scan shows enteritis, or inflammation of your intestines. Given that you were not able to provide a stool specimen here, we are unable to determine the definitive etiology at this time. Please picker tender helper your prescriptions at the pharmacy and take them as needed for symptoms. Take Tylenol and ibuprofen as needed for pain. Hydrate, eat a bland diet. Follow-up closely with your primary care provider. Return to the emergency department for new or worsening symptoms. Clinical Impressions Clinical Impression: Abdominal pain, Diarrhea, Enteritis, Hematuria Stand Alone Forms Stand Alone Forms: Work/School Release Instructions Patient Instructions: DI for Diarrhea and Traveler's Diarrhea -- Adult, DI for Nausea -- Adult Print Language Print Language: Gibraltarian Discharge ED Provider: Emily Bauer General Adult HPI General Chief complaint: Nausea/Vomiting/Diarrhea Stated complaint: Stomach pain with vomiting,diarrhea Time Seen by Provider: 04/21/24 16:20 Mode of Arrival: Ambulatory Source of Information: Patient Limitations: No Limitations Description of Symptoms (Recalled from ER Triage Doc. by RN): Pt presents for evaluation of flu sx. highest recorded temp at home was 103, has had abd pain and diarrrhea. pt was diagnosed with flu A 3 weeks ago, and was started on abx by primary care and is now having abdominal pain and constant diarrhea. History of Present Illness HPI narrative: This patient is a 59-year-old female with a history of hypertension, hyperlipidemia, prior history of breast cancer, CAD, and GERD presenting to the emergency department for evaluation with concern for epigastric pain, nausea, vomiting, and diarrhea. Symptoms been going on for approximate 3 weeks after being diagnosed with the flu. She notes that symptoms are progressively worsened and she is not able to keep anything in, as it comes straight out as diarrhea. No blood in her stools, but she does note that her stools are slightly dark. She denies chest pain, shortness of breath, urinary symptoms Related Data Home Medications ?Medication ?Instructions ?Recorded ?Confirmed metoprolol succinate 50 mg 50 mg PO DAILY High blood pressure 08/23/18 04/21/24 tablet,extended release 24 hr alprazolam 0.5 mg tablet 0.5 mg PO TID 01/27/24 04/21/24 semaglutide 0.25 mg or 0.5 mg (2 0.5 mg SQ WEEKLY 04/21/24 04/21/24 mg/3 mL) subcutaneous pen injector (Ozempic) Previous Rx's ?Medication ?Instructions ?Recorded ondansetron 4 mg disintegrating 4 mg PO Q8H PRN nausea and 04/11/24 tablet vomiting #20 tabs famotidine 20 mg tablet (Pepcid) 20 mg PO BID #10 tabs 04/21/24 ondansetron 4 mg disintegrating 4 mg PO Q8H PRN nausea and 04/21/24 tablet vomiting 4 days #12 tabs Allergies Allergy/AdvReac Type Severity Reaction Status Date / Time succinylcholine Allergy Severe CAN'T Verified 04/21/24 16:33 (SUCCINYLCHOLINE) METABOLIZE DRUG , COULDN'T WAKE UP-ON VENT FOR 3 DAYS adhesive tape (ADHESIVE TAPE) Allergy Intermediate I-RASH/BLISTERING Verified 04/21/24 16:33 OF SKIN (TRANSPORE TAPE) codeine (CODEINE) Allergy Mild -- Verified 04/21/24 16:33 [facility] Disclaimer: The information contained in this section may have been updated after the patient was seen, as this information can be updated by other users. Medical History Acid reflux Family history of early CAD History of breast cancer in female Surgical History Hx of cholecystectomy Hx of hernia repair Hx of section History of mastectomy History of mastectomy Family History Other Family history of VT (myocardial infarction) Family hx of lung cancer Social History Smoking Status: Never smoker second hand exposure: No alcohol intake: never substance use type: denies use current occupational status: employed Travel in the last 8 weeks: None household members: significant other housing: house current occupation: [employer] current occupational exposures/hazards: No caffeine: Yes Have you lived/traveled outside US in past 30 days?: No Contact w/someone who lives/traveled outside US past 30 days?: No Exposure to someone with infectious disease in past 14 days?: No Do you have a fever (greater than 100.4 F or 38 C)?: Yes Have you tested positive for COVID-19: No Exposed to someone with COVID-19 in past 14 days?: No Do you have a sore throat?: No Do you have a cough?: No Do you have any weakness?: Yes Do you have any diarrhea?: Yes Are you experiencing any unusual bleeding?: No Do you have any muscle aches/pain?: No Do you have any abdominal pain?: No Are you experiencing loss of taste or smell?: No Other Medical History Have you received the Flu Vaccine for this season: Yes Have you received the Pneumonia Vaccine: No ROS Obtained: Yes All systems reviewed & no additional complaints except as documented Physical Exam General General appearance: alert, in no apparent distress and in distress Head Head exam: atraumatic and normocephalic Eye Eye exam: Present normal appearance, PERRL and EOMI ENT ENT exam: Present normal exam, normal oropharynx, mucous membranes moist and normal external ear exam Neck Neck exam: Present normal inspection, full ROM and trachea midline; Absent tenderness Chest Chest inspection: Present normal inspection and symmetric chest wall rise; Absent tenderness Respiratory Respiratory exam: Present normal lung sounds bilaterally; Absent respiratory distress, wheezes, stridor or accessory muscle use Cardiovascular Cardiovascular exam: Present regular rate and normal rhythm Abdominal Exam Abdominal exam: Present soft and tenderness (Epigastric); Absent distention or guarding Extremities Exam Extremities exam: Present normal inspection, full ROM and normal capillary refill; Absent tenderness or edema Back Exam Back exam: Present normal inspection and full ROM; Absent tenderness Neurological Exam Neurological exam: Present alert, oriented X3, CN II-XII intact and normal gait; Absent motor sensory deficit Psychiatric Psychiatric exam: Present normal affect and normal mood Skin Skin exam: Present warm and dry Medical Decision Making Medical Records Medical records reviewed: Yes I reviewed the patient's medical records. Screening: Per USPSTF and CDC recommendations, given the prevalence of disease in our region, it is our hospital?s policy to screen for HIV and viral Hepatitis for all patients aged 18 and over and those with ongoing risk factors. Tej Inquiry Pt receiving controlled substance: No Vital Signs: 04/21/24 15:57 04/21/24 20:09 Temperature 99.9 F H 98.2 F Temperature Source Oral Oral Pulse Rate 84 Pulse Rate [Right] 105 H Respiratory Rate 18 20 Blood Pressure 152/73 H Blood Pressure [Right Arm] 153/87 H Blood Pressure Mean [Right Arm] 109 Blood Pressure Source Automatic Cuff Blood Pressure Source [Right Arm] Automatic Cuff Blood Pressure Position Sitting Blood Pressure Position [Right Arm] Sitting 02 Sat by Pulse Oximetry 98 Oxygen Delivery Method Room Air Room Air Lab Data Lab results reviewed: Yes I reviewed the patient's lab results. Lab Results 04/21/24 17:15: WBC 10.2, RBC 5.56 H, Hgb 17.0 H, Hct 49.2 H, MCV 88.5, MCH 30.6, MCHC 34.6, RDW 12.4, Plt Count 247, MPV 10.4, Neut % (Auto) 65.1, Lymph % (Auto) 24.1, [place] % (Auto) 7.2, Eos % (Auto) 3.1, Baso % (Auto) 0.3, Neut # (Auto) 6.7, Lymph # (Auto) 2.5, [place] # (Auto) 0.7, Eos # (Auto) 0.3, Baso # (Auto) 0.0, Sodium 140, Potassium 3.6, Chloride 111 H, Carbon Dioxide 19 L, Anion Gap 13.6, BUN 14, Creatinine 0.70, Estimated Creat Clear 124, Estimated GFR 86, Est GFR ( Amer) 104, Glucose 108 H, Calcium 8.6, Phosphorus 2.8, Magnesium 1.8, Total Bilirubin 1.5 H, AST 71 H, ALT 45, Alkaline Phosphatase 122, Troponin I < 0.01, Total Protein 8.2, Albumin 4.4, Globulin 3.8 H, Albumin/Globulin Ratio 1.2, Lipase 111 04/21/24 18:50: Urine Color Yellow, Urine Appearance Clear, Urine pH 6.0, Ur Specific Vandiver 1.015, Urine Protein Negative, Urine Glucose (UA) Negative, Urine Ketones Negative, Urine Blood 1+ A, Urine Nitrate Negative, Urine Bilirubin Negative, Urine Urobilinogen 0.2, Ur Leukocyte Esterase Negative, Urine RBC 10-20, Urine WBC 5-10, Urine Bacteria 1+, Urine Mucus 4+ 04/21/24 19:55: Troponin I < 0.01 04/21/24 17:15 04/21/24 17:15 Orders (Tests/Meds): ED MEDICATIONS Discontinued Medications Generic Name Dose Route Start Last Admin Trade Name Freq PRN Reason Stop Dose Admin Acetaminophen 1,000 mg 04/21/24 16:34 04/21/24 16:57 Acetaminophen 1,000mg/100ml Vial IV 04/21/24 16:35 1,000 mg ONCE ONE Administration Famotidine 20 mg 04/21/24 16:34 04/21/24 16:57 Famotidine 20mg/2ml Vial IV 04/21/24 16:35 20 mg ONCE ONE Administration Lactated Ringer's 1,000 mls @ 999 mls/hr 04/21/24 16:34 04/21/24 16:57 Lactated Ringer's 1000 Ml Bag IV 04/21/24 17:34 999 mls/hr .Q1H1M ONE Administration Iopamidol 75 ml 04/21/24 17:52 04/21/24 17:53 Iopamidol-370 (76%);100ml Bottle IV 04/21/24 17:53 75 ml ONCE ONE Administration Ketorolac Tromethamine 15 mg 04/21/24 16:34 04/21/24 16:57 Ketorolac 30mg/Ml Vial IV 04/21/24 16:35 15 mg ONCE ONE Administration Ondansetron HCl 4 mg 04/21/24 16:34 04/21/24 16:57 Ondansetron 4mg/2ml Vial IV 04/21/24 16:35 4 mg ONCE ONE Administration Sodium Chloride 8 ml 04/21/24 16:34 Sodium Chloride 0.9% 10ml Vial IV 05/21/24 16:33 NEEDED PRN dilute pepcid Sodium Chloride 10 ml 04/21/24 17:52 04/21/24 17:53 Sodium Chloride 0.9% 10ml Syr (Rad Only) IV 04/21/24 17:53 10 ml ONCE ONE Administration ORDERS Category Date Time Status CT abdomen pelvis w con Stat Cat Scan 04/21/24 16:34 Completed Complete Blood Count Auto Diff Stat Lab 04/21/24 17:15 Completed Comprehensive Metabolic Panel Stat Lab 04/21/24 17:15 Completed Lipase Stat Lab 04/21/24 17:15 Completed MAG [Magnesium] Stat Lab 04/21/24 17:15 Completed PHOS [Phosphorous] Stat Lab 04/21/24 17:15 Completed Trop I [Troponin I] Stat Lab 04/21/24 17:15 Completed Troponin I Q3H Lab 04/21/24 19:55 Completed UA [Urinalysis and Microscopic] Stat Lab 04/21/24 18:50 Completed ECG Data Tracing #1: I reviewed this ECG and interpreted as documented below: Normal sinus rhythm with sinus rhythm with a ventricular of [address] changes concerning for ischemia. Normal intervals ECG initial impression date: 04/21/24 ECG initial impression time: 17:19 Medical Decision Narrative: In summary, this patient is a 59-year-old female presenting to the Emergency Department for evaluation of abdominal pain, nausea, vomiting, diarrhea for 3 weeks. Differential diagnoses considered include but are not limited to infectious colitis, gastroenteritis, inflammatory colitis, pancreatitis, gastritis, GI bleed. Ruling out the most morbid conditions drove assessment. It should be noted patient's history includes obesity, hypertension, hyperlipidemia, CAD which may or may not be at goal therapy. This complicates all aspects of care by increasing patient's risk for morbidity. On exam, the patient is sitting upright in no acute distress. She has epigastric abdominal tenderness but no rebound or guarding. Vitals are reassuring on cardiac telemetry. Workup included CBC, CMP, lipase, urinalysis, diarrhea panel, troponin, EKG, CT abdomen pelvis with IV contrast. She was given a bolus of IV fluids as well as IV acetaminophen, Toradol, Pepcid, Zofran for symptomatic improvement. I independently interpreted CT scan prior to the radiologist read and noted concerns for enteritis. Please see their read for final interpretation. Labs were obtained that demonstrated hemoconcentration on CBC, concentration on chemistry with mildly low CO2, mildly high chloride. Patient also has a mildly elevated AST and bilirubin, but ALT is normal. Lipase normal. Urine demonstrates hematuria, which the patient states is chronic. I am not concerned for infection based on urinalysis. She also has no urinary symptoms. On multiple subsequent reassessments, the patient is resting comfortably and has had no vomiting or diarrhea. She is able to tolerate oral intake, not able to provide stool specimen. Ultimately, I feel she is appropriate for discharge home with close follow-up with primary care. She is given instructions for supportive management of presumed infectious gastroenteritis. She was given prescriptions for Pepcid and Zofran. Strict return precautions were given and she was given a specimen cup to go home with to help collect a stool sample for outpatient management. Critical Care Critical Care Time Critical Care Time: No
[2024-04-21 17:51] LABS: Troponin I < 0.01 ng/ml (0.00-0.034)
[2024-04-21] MEDS: SODIUM CHLORIDE 0.9% 10ML SYR (RAD ONLY) 10 ML IV (17:53)
[2024-04-21] MEDS: IOPAMIDOL-370 (76%);100ML BOTTLE 75 ML IV (17:53)
[2024-04-21 18:56] LABS: Appearance,Urine CLEAR (Clear); Bilirubin,Urine Negative (Negative); Blood, Urine 1+ (Negative); Color,Urine YELLOW (Yellow); Glucose,Urine (UA) Negative (Negative); Ketones,Urine Negative (Negative); Leukocyte Esterase,Urine Negative (Negative); Microscopic, Urine URINE MICROSCOPIC (MICROSCOPIC); Nitrate,Urine Negative (Negative); Protein,Urine Negative (Negative); Specific Gravity, Urine 1.015 (1.005-1.030); Urobilinogen,Urine 0.2 EU/dl (0.2)
[2024-04-21 19:23] LABS: Bacteria,Urine 1+ /lpf; Mucus,Urine 4+ /lpf
--- NOTE | 2024-04-21 19:43 | PC.NURSE ---
Report received from May RN Pt resting quietly in bed Skin pink warm and dry Resp full and easy. Speech clear and appropriate. IV infusing without difficulty Lab here to collect repeat troponin
--- NOTE | 2024-04-21 19:46 | PC.NURSE ---
Patient is unable to give a stool sample at this time.
--- NOTE | 2024-04-21 20:07 | PC.NURSE ---
Patient supplied with materials to do an at home stool sample.
[2024-04-21 20:09] VITALS: BP 152/73; PULSE 84; RESP 20; TEMP 36.8; O2SAT 97
[2024-04-21 20:39] LABS: Troponin I < 0.01 ng/ml (0.00-0.034)
--- NOTE | 2024-04-23 16:06 | PC.NURSE ---
SPOKE WITH VAL FROM LAB, STOOL SPECIMEN + FOR NOROVIRUS. DR DELONG NOTIFIED, NO NEW ORDERS
== END 2024-04-21 20:10 | disposition home or self-care (01) ==
PROVIDERS: Emergency Provider Emergency Medicine; PCP Family Medicine
DX: K52.9 Noninfective gastroenteritis and colitis, unspecified (principal); R31.9 Hematuria, unspecified; R10.13 Epigastric pain; R50.9 Fever, unspecified; R11.2 Nausea with vomiting, unspecified
CPT/HCPCS: 74177; 80053; 81001; 83690; 83735; 84100; 84484; 85025; 93005; 96361; 96374; 96375; 99285; J0131; J1885; J2405; J7120; Q9967; S0028

== ENCOUNTER 2024-04-23 13:06 | Outpatient (CLI) | payer BC, SELFPAY ==
[2024-04-23 13:27] LABS: Adenovirus F 40/41, stool Not Detected (NotDetected); Astrovirus Not Detected (NotDetected); Campylobacter Not Detected (NotDetected); Clostridium Difficile A/B, PCR Not Detected (NotDetected); Cryptosporidium Not Detected (NotDetected); Cyclospora Cayetanesis Not Detected (NotDetected); Entamoeba histolytica Not Detected (NotDetected); Enteroaggregative E coli Not Detected (NotDetected); Enteropathogenic E coli Not Detected (NotDetected); Enterotoxigenic E coli Not Detected (NotDetected); Giardia lamblia Not Detected (NotDetected); Plesimonas Shigalloides, PCR Not Detected (NotDetected); Rotavirus A Not Detected (NotDetected); Salmonella, PCR Not Detected (NotDetected); Sapovirus Not Detected (NotDetected); Shiga-like toxin E coli Not Detected (NotDetected); Shigella Enterovasive E coli Not Detected (NotDetected); Vibrio Cholerae Not Detected (NotDetected); Vibrio, PCR Not Detected (NotDetected); Yersinia Entercolitica, PCR Not Detected (NotDetected)
[2024-04-23 16:05] LABS: Norovirus Detected (NotDetected)
== END 2024-04-23 23:59 | disposition home or self-care (01) ==
LOC: LAB.DROPOF 13:07
PROVIDERS: PCP Family Medicine; Visit Provider Emergency Medicine
DX: R19.7 Diarrhea, unspecified (principal)
CPT/HCPCS: 87507

== ENCOUNTER 2024-12-01 14:18 | Outpatient (CLI) | payer BC, SELFPAY ==
--- OUTSIDE RECORDS SUMMARY | 2024-05-16 12:15 | XMS_ITS ---
Author Organization [facility]-[place] Address [address] [place] [id number] Care Team Providers Care Washroom Cleaner Name Role Phone Digna Hull Primary Care Provider [phone] Allergies Allergen (clinical drug ingredient) Drug/Non Drug [...] 04:45:32 PM Interpretation:Normal Performing Lab: Notes/Report: CLIA: [id number] Shine Condon MD, Director Staffing [facility]0 [facility] , [address], [place] [address] Test performed by [employer], [facility] Sodium 139 135-145 mmol/L Potassium 4.6 3.5-5.3 [...] 05/16/2024 Encounters Encounter Location Date Provider Diagnosis [facility] [address] [place], [place] [phone] 05/16/2024 Digna Hull BMI 35.0-35.9,adult Z68.35 ; [...] [address], [address], [place], [place], [id number], Progress Notes * HELLEN MASSEYEDOB: 5 (59 yo F)Acc No.[id number]:05/16/2024 Progress Notes Patient: ARSEN ROSALES Provider: Digna Hull M.D. :1965 A ge:59 Y S ex:Female Date:05/16/2024 Address:[address] [place] [address] , [facility] [id number] Subjective: * Chief Complaints: * 1 . [...] Diagno stic Procedure: s ee above , [facility] 12/01-12/22/15. * Family History: F [...] use: yes. Marital Status: Single. Occupation: HOME [employer]. Past smoking status: no. Recreational drug use: [...] edema. ? Assessment: * Assessment: 1. B CT 35.0-35.9,adult - Z68.35 (Primary) 2 . A [...] Procedure Codes: 3 6416 CAPILLARY BLOOD DRAW, 66387 GLYCATED HEMOGLOBIN TEST, Modifiers: QW , 3074F SYST BP LT 130 MM HG, 3078F DIAST BP < 80 MM HG, 3044F HG A1C LEVEL LT 7.0% * Follow Up: 2 Months * Images: Billing Information: * Visit Code: 77224 Office Visit, Est Pt., Level 4. * Procedure Codes: 80903 CAPILLARY BLOOD DRAW. 43037 GLYCATED HEMOGLOBIN TEST. Modifiers: QW 3074F SYST BP LT 130 MM HG. 3078F DIAST BP < 80 MM HG. 3044F HG A1C LEVEL LT 7.0%. * Electronic signature of Digna Hull MD on 12/01/2024 at 02:21 PM EDT Sign off status: Pending * Provider: Digna Hull M.D. Date: 0 05/16/2024 Generated for Kade jeter/Acosta/eTransmitting on: 1 02:21 PM EDT History and Physical Notes * [...]
--- OUTSIDE RECORDS SUMMARY | 2024-07-11 12:15 | XMS_ITS ---
Author Organization [facility]-[place] Address [address] [place] [phone] Care Team Providers Care Banking Center Manager Name Role Phone Digna Hull Primary Care [...] Status W/U Status Risk Notes Problem Rosacea ([id number]) Rosacea (L71.9) Active confirmed Vital Signs Blood pressure systolic 120 mm Hg 07/12/19 25 Blood pressure diastolic 80 mm Hg 025 Heart Rate 74 /min 07/11/2024 Height 61.50 in 07/11/2024 Weight 191.4 lbs 07/11/2024 BMI 35.58 kg/m2 07/11/2024 Encounters Encounter Location Date Provider Diagnosis [facility] [address] [place] [address] 36 [facility] [address] [place], [place] [id number] 07/11/2024 Digna Hull Facial dermatitis L30.9 ; [...] Reason: Provider Name:Vielka flores, 12/21/2024 04:30:00 PM, [address] [place] [address] 36 [facility], [address], [place], [phone], Progress Notes * ADRIAN MASSEYOB: 5 (59 yo F)Acc No.[id number]:07/11/2024 Progress Notes Patient: ARSEN ROSALES Provider: Digna Hull M.D. :1965 A ge:59 Y S ex:Female Date:07/11/2024 Address:[address] [place] [address] , [id number] Subjective: * Chief Complaints: [...] Diagno stic Procedure: s ee above , [facility] 12/01-12/22/15. * Family History: F ather: [...] . R osacea - L71.9 ?3. B IN 35.0-35.9,adult - Z68.35 Plan: * Treatment: * Follow Up: 4 Weeks * Images: Billing Information: * Visit Code: 28221 Office Visit, Est Pt., Level 4. * Procedure Codes: * Electronic signature of Digna Hull MD on 12/01/2024 at 02:21 PM EDT Sign off status: Pending * Provider: Digna Hull M.D. Date: 07/11/2024 Generated for Kade jeter/Acosta/eTransmitting on: 1 02:21 [...]
--- OUTSIDE RECORDS SUMMARY | 2024-08-22 12:15 | XMS_ITS ---
Author Organization [facility] Address [address] [place] [id number] Care Team Providers Care Odd Job Laborer Name Role Phone Digna Hull Primary Care Provider [phone] Allergies Allergen (clinical drug ingredient) Drug/Non Drug [...] 02:54:10 PM Interpretation:Normal Performing Lab: Notes/Report: CLIA: [id number] Shine Condon MD, Real Estate Marketing Coordinator [address] [place] [address] , [address], [place] [address] Test performed by [employer], [facility] Sodium 143 135-145 mmol/L Potassium 3.7 [...] Encounter Location Date Provider Diagnosis [place] [address] [place] [phone] 08/22/2024 Digna Hull Type 2 diabetes mellitus [...] [address], [address], [place], [place], [id number], Progress Notes * HELLEN MASSEYEDOB: 5 (59 yo F)Acc No.[id number]:08/22/2024 Progress Notes Patient: ARSEN ROSALES Provider: Digna Hull M.D. :1965 A ge:59 Y S ex:Female Date:08/22/2024 Address:[address] [place] [address] , [facility]-[id number] Subjective: * Chief Complaints: * 1 . [...] (Danielle). 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 He's throwing everything away that he worked [...] Diagno stic Procedure: s ee above , [facility] 12/01-12/22/15. * Family History: F ather: , [...] Marital Status: Single. 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 Recreational drug use: [...] insulin - E11.9 (Primary) 2 . B CA 35.0-35.9,adult - Z68.35 3 . F amily [...] * Images: Billing Information: * Visit Code: 70708 Office Visit, Est Pt., Level 3. * Procedure Codes: 73179 GLYCATED HEMOGLOBIN TEST. Modifiers: QW 3044F HG [...] 0 08/22/2024 Generated for Kade jeter/Acosta/eTransmitting on: 02:21 PM EDT History and Physical Notes * HPI (History of Present Illness) Category Sub-Category Detail Notes Category Not es Endocrinology Problems with the Ozempic. Is supposed to be taking 1mg. Constitutional Problems with her son. He is having adjustment reaction of childhood. He is living with another family (Danielle). 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 He's throwing everything away that he worked [...]
--- OUTSIDE RECORDS SUMMARY | 2024-09-26 12:15 | XMS_ITS ---
Author Organization [facility] Address [address] [place] [phone] Care Team Providers Care Nuclear Logging Engineer Name Role Phone Digna Hull Primary Care Provider [phone] Allergies Allergen (clinical drug ingredient) Drug/Non Drug [...] 01:13:14 PM Interpretation:Normal Performing Lab: Notes/Report: CLIA: [id number] Shine Condon MD, Heading Repairer [facility] , [address], [place] [address] Test performed by [employer], [facility] Sodium 141 135-145 mmol/L Potassium 3.8 3.5-5.3 mmol/L Chloride 105 97-108 mmol/L CO2 25 20-32 mmol/L Glucose 94 65-99 mg/dL BUN 12 6-20 mg/dL Creatinine 0.68 0.50-1.00 mg/dL Calcium 9.0 8.6-10.4 mg/dL eGFR by Creatinine 100 >59 mL/min/1.73m2 P-TSH Reviewed date:09/29/2024 01:13:14 PM Interpretation:Normal Performing Lab: Notes/Report: Test performed by [employer] [address] [place] [address] , [address], [place] [address] Shine Condon MD, Heading Repairer CLIA: [id number] TSH 1.97 0.43-5.25 mU/L REASON FOR VISIT [...] Provider Diagnosis [facility] [address] [facility] [address] [place] [id number] 09/26/2024 Digna Hull Type 2 diabetes memo [...] [address], [address] , [place], [place], [id number], Progress Notes * HELLEN MASSEYEDOB: 5 (59 yo F)Acc No.[id number]:09/26/2024 Progress Notes Patient: ARSEN ROSALES Provider: Digna Hull M.D. :1965 A ge:59 Y S ex:Female Date:09/26/2024 Address:[address] [place] [address] , [id number] Subjective: * Chief Complaints: * 1 . [...] Diagno stic Procedure: s ee above , [facility] 12/01-12/22/15. * Family History: F ather: [...] Marital Status: Single. 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 Recreational drug use: [...] B CA 35.0-35.9,adult - Z68.35 3 . A cquired [...] Codes: 8 5025 CBC WITH AUTO DIFF, 23887 VENIPUNCT, ROUTINE*, 1036F TOBACCO NON-USER * Follow Up: 2 Months * Images: Billing Information: * Visit Code: 24544 Office Visit, Est Pt., Level 3. * Procedure Codes: 31267 CBC WITH AUTO DIFF. 01816 VENIPUNCT, ROUTINE*. 1036F TOBACCO NON-USER. * Electronic signature of Digna Hull MD on 12/01/2024 at 02:21 PM EDT Sign off status: Pending * Provider: Digna Hull M.D. Date: 0 09/26/2024 Generated for Kade jeter/Acosta/eTmynorsmitting on: 1 02:21 PM EDT History and [...]
--- OUTSIDE RECORDS SUMMARY | 2024-11-21 12:15 | XMS_ITS ---
Author Organization [facility] Address [address] [place] [id number] Care Team Providers Care Store Worker Name Role Phone Digna Hull Primary Care Provider Allergies Allergen (clinical drug ingredient) Drug/Non Drug Allergy documented on EMR Reaction Allergy Type Onset Date Status codeine Codeine Unknown Drug Allergy Active succinylcholine Succinylcholine paralysis Drug Allergy Active Results Component Value Reference Range Notes P-Comprehensive Metabolic Pa marco (CMP) Reviewed date:11/29/2024 01:16:03 PM Interpretation:Normal Performing Lab: Notes/Report: Test performed by [facility], [address] , [address], [place] [address] Shine Condon MD, Security Tech CLIA: [id number] Sodium 144 135-145 mmol/L Potassium 3.7 3.5-5.3 [...] 0.8 <0.2-1.2 mg/dL A/G Ratio 1.3 1.1-2.5 REASON FOR VISIT 2 months, Needs labs, [...] W/U Status Risk Notes Problem Abnormal gait (66465930) Imbalance (R26.89) Active confirmed Vital Signs Blood pressure systolic 140 mm Hg 11/22/19 25 Blood pressure diastolic 68 mm Hg 025 Heart Rate 56 /min 11/21/2024 Height 61.50 in 11/21/2024 Weight 181.6 lbs 11/21/2024 BMI 33.75 kg/m2 11/21/2024 Encounters Encounter Location Date Provider Diagnosis [facility] [address], [place] [phone] 11/21/2024 Digna Hull Imbalance R26.89 ; Type [...] aneous once a week; Duration: 28 days Pending Test Test Name Order Date MRI : Brain with and w/o contrast 2024 Next Appt Details Follow Up: 4 Weeks, Reason: Provider Name:Vielka flores, 12/21/2024 04:30:00 PM, [address], [address] , [place], [place], [phone], Progress Notes * HELLEN MASSEYEDOB: 5 (59 yo F)Acc No.[id number]:11/21/2024 Progress Notes Patient: ARSEN [place]AL[place] Provider: Digna Hull M.D. :1965 A ge:59 Y S ex:Female Date:11/21/2024 Address:[address] [place] [address] , [id number] Subjective: * Chief Complaints: * 1 . [...] o D iarrhea.? N EUROLOGY: no M dyllan loss. D izziness yes. * Medical History: [...] Diagno stic Procedure: s ee above , [facility] 12/01-12/22/15. * Family History: F [...] Marital Status: Single. 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 Recreational drug [...] by Creatinine 96 >59 - mL/min/1.73m2 * Asha Braden 11/29/2024 01 :15:54 PM EDT > Left voicemail informing of normal lab results ?Imaging: MRI : Brain with and w/o contrast* Stephanie Walter 11/22/2024 09:1 0:08 AM EDT > auth#[id number]; valid 11/22/2024-02/19/2025; CPT code 80966; faxed to [facility] Scheduling 2.?Type 2 diabetes mellitus without complication, without [...] * Images: Billing Information: * Visit Code: 03991 Office Visit, Est Pt., Level 4. * Procedure Codes: 1036F TOBACCO NON-USER. * Electronic signature of Digna Hull MD on 12/01/2024 at 02:22 PM EDT Sign off status: Pending * Provider: Digna Hull M.D. Date: 0 11/21/2024 Generated for Printi ng/Faxing/eTransmitting on: 1 02:22 PM EDT History and Physical Notes * [...]
--- OUTSIDE RECORDS SUMMARY | 2024-12-01 14:21 | XMS_ITS | Clinical Summary ---
Author Organization [facility] Address [address] [place] [address] Care Team Providers Care Hair Boiler Operator Name Role Phone Noah Hull MD Primary Care Provider Allergies Active Allergy Reactions Criticality Noted Date Comments Codeine Nausea And Vomiting 09/13/2015 Succinylcholine Other (See Comments) 10/15/2015 Medications furosemide (LASIX) 20 MG tablet Take 20 mg by mouth 2 (two) times a day. Active ALPRAZolam (XANAX) 0.25 MG tablet 02/13/2016 Active anastrozole (ARIMIDEX) 1 MG tablet Take 1 mg by mouth Daily. Active Active Problems Problem Noted Date Diagnosed Date Malignant neoplasm of lower- inner quadrant of left female breast 10/15/2015 Cancer Staging:Clinical: Unsigned Pathologic stage from 10/15/2015:Stage IA(T1c, N0, cM0) - Signed by Georgiana Adam MD on 10/15/2015 Social History Tobacco Use Types Packs/Day Years Used Date Smoking Tobacco: Former Cigarettes Q uit: 1990 Alcohol Use Standard Drinks/Week Comments Yes 1 (1 standard drink = 0.6 oz pur e alcohol) month Abuse Screen Answer Date Recorded Unsafe at Home or Work/School Not on file Feels Threatened by Someone? Not on file 10/2022 Does Anyone Keep You from Co ntacting Others or Doint Things Outside the Home? Not on file 12/08/2022 Physical Sign of Abuse Present Not on file 1 Housing Stability Answer Date Recorded Current Living Arrangements Not on file 10/2022 Potentially Unsafe Housing Conditions Not on rick e 12/08/2022 Family and Community Support Answer Brady e Recorded Help with Day-to-Day Activities Not on file 12/08/2022 Lonely or Isolated Not on file 12/08/2022 Employment Answer Date Recorded Do you want help finding or keeping work or a amanda b? Not on file 12/08/2022 Disabilities Answer Date Recorded Concentrating, Remembering, or Making Decisions Difficulty Not on file 12/08/2022 Doing Errands Independently Difficulty Not on fi le 12/08/2022 Education Answer Date Recorded Help with school or training? Not on file Preferred Language Not on file 12/08/2022 Comments No Sex and Gender Information Value Date Recorded Sex Assigned at Not on file Legal Sex Female 10:34 AM EDT Gender Identity Not on file Sexual Orientation Not on file Last Filed Vital Signs Vital Sign Reading Time Taken Comments Blood Pressure 151/74 12/08/2016 9:17 AM EDT Pulse 68 12/08/2016 9:17 AM EDT Temperature 36.9 C (98.4 F) 12/08/2016 9:17 AM EDT Respiratory Rate 18 12/08/2016 9:17 AM EDT Oxygen Saturation 98% 06/06/2016 1:12 PM EDT Inhaled Oxygen Concentration - - Weight 89 kg (196 lb 3.2 oz) 12/08/2016 9:17 AM EDT Height 154.9 cm (5' 1 ) 06/06/2016 1:12 PM EDT Body Mass Index 37.07 06/06/2016 1:12 PM EDT Plan of Treatment Health Maintenance Due Date Last Done Comments Annual Gynecologic Pelvic an d Breast Exam 1965 TDAP/TD VACCINES (1 - Tdap) 02/10/1984 COLOGUARD 2010 COLON CANCER SCREENING 5 YEA R SIGMOIDOSCOPY 2010 COLONOSCOPY 2010 [address] CANCER SCREENING 2010 CT COLONOGRAPHY 2010 FECAL OCCULT BLOOD TEST 2010 FIT Testing (1 year) 2010 Pneumococcal Vaccine 50+ (1 of 1 - PCV) 2015 ZOSTER VACCINE (1 of 2) 2015 ANNUAL PHYSICAL 06/06/2016 HEPATITIS C SCREENING 06/06/2016 MAMMOGRAM 09/16/2017 09/17/2015, 08/30, 09/13/2015, Additional history exists INFLUENZA VACCINE 09/30/2024 Procedures Procedure Name Priority Date/Time Associated Diagnosis Comments MAMMO OUTSIDE FILMS Routine 09/17/2015 1 1:33 AM EDT H/O mammogram from Last 3 Months or Most Recently Relevant to Health Maintenance Results * Mammo transfer of outside films (09/17/2015 11:33 AM EDT) Anatomical Region Laterality Modality Breast N/A Other Narrative 09/17/2015 11:33 AM EDT This order has been auto-finalized and does not contain a result. Coy Webster MD IMG MAMMOGRAPHY ORDERABLES F inal Result from Last 3 Months or Most Recently Relevant to Health Maintenance Insurance EMPLOYEE Care Teams Hair Boiler Operator Relationship Specialty Start Date End Date Noah Hull MD PCP - General Neurology 09/07/15
--- NOTE | 2024-12-01 14:22 | MR_ITS ---
FINAL REPORT CLINICAL HISTORY: off balance, dizzy FINDINGS: Multiplanar MR imaging of the brain was performed without and with contrast. There are few small scattered foci of increased signal in the deep white matter bilaterally. There is no evidence of intracranial hemorrhage or mass. No abnormal extra-axial fluid collection is seen. The ventricular size is within normal limits. There is no evidence of shift of the midline structures. The posterior fossa and brainstem have an unremarkable appearance. No area of abnormal restricted diffusion is identified. No abnormal contrast enhancement is seen. The 7th and 8th nerve root complexes are intact. IMPRESSION: Mild changes of chronic microvascular ischemia. Reviewed, Interpreted and Dictated by Arnaldo Gaines MD Transcribed by Radha Anne Authenticated and [facility]
--- OUTSIDE RECORDS SUMMARY | 2024-12-01 14:22 | XMS_ITS | Clinical Summary ---
Author Organization [facility] Address [address] [place] [address] Care Team Providers Care Woven Wood Shade Assembler Name Role Phone Heath Hull MD Primary Care Provider [phone] Social History Tobacco Use Types Packs/Day Years Used Date Smoking Tobacco: Never Assessed Comments Unknown Sex and Gender Information Value Date Recorded Sex Assigned at Not on file Legal Sex Female 7:53 PM EDT Gender Identity Not on file Sexual Orientation Not on file Last Filed Vital Signs Vital Sign Reading Time Taken Comments Blood Pressure 148/78 08/19/2022 11:48 AM EDT Pulse 69 08/19/2022 11:48 AM EDT Temperature - - Respiratory Rate - - Oxygen Saturation - - Inhaled Oxygen Concentration - - Weight 91.2 kg (201 lb) 08/19/2022 11:48 AM EDT Height 154.9 cm (5' 1 ) 08/19/2022 11:48 AM EDT Body Mass Index 37.98 08/19/2022 11:48 AM EDT Plan of Treatment Health Maintenance Due Date Last Done Comments [facility]-Depression Screening 1965 [facility]-Infant/Child/Adol SDOH Screenings 1965 [facility]- SDOH Screenings 1983 [facility]-Adult SDOH Screenings 1983 [facility]-DTaP,Tdap,and Td Vaccine s (1 - Tdap) 02/10/1984 [facility]-Hepatitis B Vaccines (1 of 3 - 19+ 3-dose series) 02/10/1984 [facility]-Pap Smear 1986 [facility]-Cervical Cancer Screening 1995 [facility]-HPV/Cotest 1995 CT Colonography 2010 Colonoscopy 2010 FIT-DNA 2010 FIT 2010 FOBT 2010 Sigmoidoscopy 2010 [facility]-Colorectal Cancer Screening 2010 [facility]-Pneumococcal Vaccine: 50 + Years (1 of 1 - PCV) 2015 [facility]-Zoster Vaccines (1 of 2) 2015 UPW-WIXTU-24 Vaccine (3 - season) 2024 11/14/2020, 09/26/2020 [facility]-Influenza Vaccine (#1) 10/31/202412/12, 11/28/2019, 01/01/2018 HPV Vaccines Aged Out No longer eligi ble based on patient's age to complete this topic [facility]-HIB Vaccines Aged Out No longer e ligible based on patient's age to complete this topic [facility]-Hepatitis A Vaccines Aged Out No longer eligible based on patient's age to complete this topic [facility]-IPV Vaccines Aged Out No longer e ligible based on patient's age to complete this topic [facility]-Rotavirus Vaccines Aged Out No lo nger eligible based on patient's age to complete this topic Insurance ANTH Care Teams Woven Wood Shade Assembler Relationship Specialty Start Date End Date Heath Hull MD [address] [place] [address] PCP - General 07/13/20
--- OUTSIDE RECORDS SUMMARY | 2024-12-01 14:22 | XMS_ITS | Patient Health Record ---
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 Name Role Phone Digna Hull Primary Care Provider [phone] Allergies Allergen (clinical drug ingredient) Drug/Non Drug [...] Interpretation:Normal Performing Lab: Notes/Report: Test performed by [facility], [place] [address] [place] [address] , [address], [place] [address] Shine Condon MD, Buggy Ladle Tender CLIA: [id number] Sodium 139 135-145 mmol/L Potassium 4.6 3.5-5.3 [...] 0.6 <0.2-1.2 mg/dL A/G Ratio 1.3 1.1-2.5 Glycohemoglobin A1c (in hous e) Reviewed date:08/26/2024 03:37:17 PM Interpretation: Performing Lab: Notes/Report: glycohemoglobin 5.9% 5 - 6.5 % P-Comprehensive Metabolic Pa marco (CMP) Reviewed date:08/30/2024 02:54:10 PM Interpretation:Normal Performing Lab: Notes/Report: Test performed by [facility], [address] , [address], [place] [address] Shine Condon MD, Buggy Ladle Tender CLIA: [id number] Sodium 143 135-145 mmol/L Potassium 3.7 3.5-5.3 [...] 0.6 <0.2-1.2 mg/dL A/G Ratio 1.4 1.1-2.5 CBC Venipuncture (in house) Reviewed date:09/29/2024 01:13:14 [...] Interpretation:Normal Performing Lab: Notes/Report: Test performed by [facility] [address] [place] [address] , [address], [place] [address] Shine Condon MD, Buggy Ladle Tender CLIA: [id number] Sodium 141 135-145 mmol/L Potassium 3.8 3.5-5.3 mmol/L Chloride 105 97-108 mmol/L CO2 25 20-32 mmol/L Glucose 94 65-99 mg/dL BUN 12 6-20 mg/dL Creatinine 0.68 0.50-1.00 mg/dL Calcium 9.0 8.6-10.4 mg/dL eGFR by Creatinine 100 >59 mL/min/1.73m2 P-TSH Reviewed date:09/29/2024 01:13:14 PM Interpretation:Normal Performing Lab: Notes/Report: Test performed by [facility] [address] [place] [address] , [address], [place] [address] Shine Condon MD, Buggy Ladle Tender CLIA: [id number] TSH 1.97 0.43-5.25 mU/L Mammogram Reviewed date:03/18/2024 12:29:51 PM Interpretation:benign, annual f/u Performing Lab: Notes/Report: benign, annual f/u result benign, annual f/u Ultrasound : Breasts, bilate ral Reviewed date:03/18/2024 12:29:51 PM Interpretation:benign, annual f/u Performing Lab: Notes/Report: benign, annual f/u Glycohemoglobin A1c (in hous e) Reviewed date:02/25/2024 03:53:01 PM Interpretation: Performing Lab: Notes/Report: glycohemoglobin 6.8% 5 - 6.5 % P-Comprehensive Metabolic Pa marco (CMP) Reviewed date:11/29/2024 01:16:03 PM Interpretation:Normal Performing Lab: Notes/Report: CLIA: [id number] Shine Condon MD, Buggy Ladle Tender [address] [place] [address] [address], [place] [address] Test performed by [facility] Sodium 144 135-145 mmol/L Potassium 3.7 3.5-5.3 [...] 0.8 <0.2-1.2 mg/dL A/G Ratio 1.3 1.1-2.5 CBC Venipuncture (in house) Reviewed date:01/22/2024 10:30:18 [...] 127, ast 53 Performing Lab: Notes/Report: CLIA: [id number] Shine Condon MD, Buggy Ladle Tender [address] [place] [address] , [address] , [place] [address] Test performed by [facility], [facility] Sodium 143 135-145 mmol/L Potassium 4.0 3.5-5.3 [...] Interpretation:Normal Performing Lab: Notes/Report: Test performed by [facility], [address] , [address], [place] [address] Shine Condon MD, Buggy Ladle Tender CLIA: [id number] TSH 2.67 0.43-5.25 mU/L CBC Fingerstick (in house) Reviewed date:04/15/2024 08:57:14 [...] 12:34:01 PM Interpretation:Negative Performing Lab: Notes/Report: Negative Medications Medication SIG (Take, Route, Frequency, Duration) [...] a day; Duration: 30 days 11/21/2024 Active Ozempic (2 MG/DOSE) 8 MG/3ML 2 mg Subcutaneous once a week; Duration: 28 days Active FLONASE NASAL SPRAY 50MCG PER SPRAY 1 SPRAY EACH NOSTRIL EACH NOSTRIL QD *Please review for potential replacement for e-prescription and drug interaction check* 02/21/2019 Not-Taking Famotidine 20 mg 1 tablet orally twice a day; Duration: 30 days Active Metoprolol Succinate ER 50 mg 1 tablet orally once a day; Duration: 30 days Active Immunizations Vaccine Route Administration Date Status Comme nts COVID 19 Moderna Unknown 09/26/2020 Administered COVID 19 Moderna Unknown 11/14/2020 Administered Fluzone PF Quad (6-35 months) Unknown 01/01/2018 Admini stered Fluzone PF Quad (6-35 months) Unknown 11/28/2019 Admini stered Fluzone PF Quad (6-35 months) Unknown 12/12/2020 Admini stered Problems Problem Type SNOMED Code ICD Code Onset Dates Problem Status W/U Status Risk Notes Problem Malignant neoplasm of female breast (795423396) Malignant neoplasm of unspecified site of left female breast (C50.912) Active confirmed Problem Palpitations (43212841) Palpitations (R00.2) Active confirmed Problem Vitamin D deficiency (58576553) Vitamin D deficiency (E55.9) Active confirmed Problem Essential hypertension (89430829) Essential hypertension (I10) Active confirmed Problem Rosacea (248306987) Rosacea (L71.9) Active conf irmed Problem Mixed anxiety and depressive disorder (076637919) Depression with anxiety (F41.8) Active confirmed Problem Primary insomnia (4243911) Primary insomnia (F51.01) Active confirmed Problem Chronic rhinitis (34372858) Chronic rhinitis (J31.0) Active confirmed Problem 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) Active confirmed Problem Obese class II (447646043888729) BMI 35.0-35.9,adult (Z68.35) Active confirmed Problem Personal history of primary malignant neoplasm of breast (884548040) H/O malignant neoplasm of breast (Z85.3) Active confirmed Problem Gastroesophageal reflux disease without esophagitis (290626541) Gastroesophageal reflux disease without esophagitis (K21.9) Active confirmed Problem Acquired hypothyroidism (376504199) Acquired hypothyroidism (E03.9) Active confirmed Problem Reactive depression (situational) (74607303) Situational depression (F43.21) Active confirmed Problem Obese class II (176643955070043) BMI 36.0-36.9,adult (Z68.36) Active confirmed Problem Anxiety state (394617715) Anxiety disorder, unspecified type (F41.9) Active confirmed Problem Occlusion and stenosis of multiple and bilateral cerebral arteries (683805589) Carotid stenosis, bilateral (I65.23) Active confirmed Problem Abnormal gait (18989688) Imbalance (R26.89) Active confirmed Problem Obese class II (028205687714549) BMI 37.0-37.9, adult (Z68.37) Active confirmed Problem Type II diabetes mellitus without complication (720913705) Type 2 diabetes mellitus without complication, without long-term current use of insulin (E11.9) Active confirmed Problem Adjustment disorder with mixed emotional features (01477319) Situational mixed anxiety and depressive disorder (F43.23) Active confirmed Problem Ductal carcinoma (79355893) Ductal carcinoma (C80.1) Active confirmed Problem History of malignant melanoma of the skin (573304108962) H/O malignant melanoma of skin (Z85.820) Active confirmed Problem Type A influenza (J10.1) Active confirmed Problem Thin basement membrane nephropathy (761028059) 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) Active confirmed Vital Signs Heart Rate 56 /min 11/21/2024 Blood pressure diastolic 68 mm Hg 11/21/2024 Height 61.50 in 11/21/2024 Blood pressure systolic 140 mm Hg 11/21/2024 Weight 181.6 lbs 11/21/2024 BMI 33.75 kg/m2 11/21/2024 Encounters Encounter Location Date Provider [facility] [address] [id number] 01/21/2024 Digna Hull Essential hypertensi on I10 ; Depression with anxiety F41.8 ; Acquired hypothyroidism E03.9 ; H/O malignant neoplasm of breast Z85.3 ; Estrogen receptor positive status [ER+] Z17.0 ; Heart murmur R01.1 and History of colon polyps Z86.0100 [facility] [address] [employer] [place] [id number] 02/25/2024 Digna Hull H/O malignant neopla sm of breast Z85.3 ; Hyperglycemia R73.9 ; Situational depression F43.21 ; Type 2 diabetes mellitus without complication, without long-term current use of insulin E11.9 and Anxiety disorder, unspecified type F41.9 [facility] [address] [id number] 04/14/2024 Digna Hull Influenza A J10.1 an d Acute bronchitis, unspecified organism J20.[address] [id number] 04/18/2024 Digna Hull Type A influenza J10 .1 ; BMI 37.0-37.9, adult Z68.37 and Type 2 diabetes mellitus without complication, without long-term current use of insulin E11.[address] [id number] 05/16/2024 Digna Hull BMI 35.0-35.9,adult Z68.35 ; Anxiety disorder, unspecified type F41.9 and Type 2 diabetes mellitus without complication, without long-term current use of insulin E11.[address] [id number] 07/11/2024 Digna Hull Facial dermatitis L3 0.9 ; Rosacea L71.9 and BMI 35.0-35.9,adult Z68.35 [facility] [address] [id number] 08/22/2024 Digna Hull Type 2 diabetes memo itus without complication, without long-term current use of insulin E11.9 ; BMI 35.0-35.9,adult Z68.35 and Family disruption Z63.8 [facility] [address] [place] [id number] 09/26/2024 Digna Hull Type 2 diabetes memo itus without complication, without long-term current use of insulin E11.9 ; BMI 35.0-35.9,adult Z68.35 and Acquired hypothyroidism E03.9 [facility] [address] [id number] 11/21/2024 Digna Hull Imbalance R26.89 ; T ype 2 diabetes mellitus without complication, without long-term current use of insulin E11.9 ; Anxiety disorder, unspecified type F41.9 ; H/O malignant melanoma of skin Z85.820 and Ductal carcinoma C80.1 [facility] [address] [place], [place] [id number] 01/04/2024 Digna Hull Situational mixed anxiety and depressive disorder F43.23 [facility] [address] [place], [place] [id number] 01/26/2024 Digna Hull [facility] [address] [place], [place] [id number] 02/29/2024 Digna Hull [facility] [address] [place], [place] [id number] 05/05/2024 Digna Hull [facility] [address] [facility] [address] [place], [place] [id number] 06/16/2024 Digna Hull Type 2 diabetes memo itus without complication, without long-term current use of insulin E11.9 [facility] [address] [place], [place] [id number] 08/23/2024 Digna Hull Type 2 diabetes memo itus without complication, without long-term current use of insulin E11.9 [facility] [address] [place], [place] [id number] 09/12/2024 Digna Hull BMI 35.0-35.9,adult Z68.35 [facility] [address] [place], [place] [id number] 09/12/2024 Digna Hull [facility] [address] [place], [place] [id number] 11/28/2024 Digna Hull Assessments Encounter Date Diagnosis (ICD Code) Assessment Notes Treatment Notes Treatment Clinical Notes Section Notes 01/04/2024 Situational mixed anxiety and depressive disorder (ICD-10 - F43.23) 01/21/2024 Essential hypertension (ICD-10 - I10) 01/21/2024 Depression with anxiety (ICD-10 - F41.8) 02/25/2024 Hyperglycemia (ICD-10 - R73.9) 02/25/2024 H/O malignant neoplasm of breast (ICD-10 - Z85.3) 04/14/2024 Acute bronchitis, unspecified organism (ICD-10 - J20.9) 04/14/2024 Influenza A (ICD-10 - J10.1) 05/16/2024 BMI 35.0-35.9,adult (ICD-10 - Z68.35) 05/16/2024 Anxiety disorder, unspecified type (ICD-10 - F41.9) 07/11/2024 Facial dermatitis (ICD-10 - L30.9) 08/23/2024 Type 2 diabetes mellitus without complication, without long-term current use of insulin (ICD-10 - E11.9) 09/12/2024 BMI 35.0-35.9,adult (ICD-10 - Z68.35) 06/16/2024 Type 2 diabetes mellitus without complication, without long-term current use of insulin (ICD-10 - E11.9) 07/11/2024 Rosacea (ICD-10 - L71.9) 09/26/2024 Type 2 diabetes mellitus without complication, without long-term current use of insulin (ICD-10 - E11.9) 11/21/2024 Imbalance (ICD-10 - R26.89) 08/22/2024 BMI 35.0-35.9,adult (ICD-10 - Z68.35) 08/22/2024 Type 2 diabetes mellitus without complication, without long-term current use of insulin (ICD-10 - E11.9) 04/18/2024 BMI 37.0-37.9, adult (ICD-10 - Z68.37) 04/18/2024 Type A influenza (ICD-10 - J10.1) 04/18/2024 Type 2 diabetes mellitus without complication, without long-term current use of insulin (ICD-10 - E11.9) 08/22/2024 Family disruption (ICD-10 - Z63.8) 11/21/2024 Type 2 diabetes mellitus without complication, without long-term current use of insulin (ICD-10 - E11.9) 07/11/2024 BMI 35.0-35.9,adult (ICD-10 - Z68.35) 09/26/2024 BMI 35.0-35.9,adult (ICD-10 - Z68.35) 05/16/2024 Type 2 diabetes mellitus without complication, without long-term current use of insulin (ICD-10 - E11.9) 02/25/2024 Situational depression (ICD-10 - F43.21) 01/21/2024 Acquired hypothyroidism (ICD-10 - E03.9) 01/21/2024 H/O malignant neoplasm of breast (ICD-10 - Z85.3) 09/26/2024 Acquired hypothyroidism (ICD-10 - E03.9) 11/21/2024 Anxiety disorder, unspecified type (ICD-10 - F41.9) 02/25/2024 Type 2 diabetes mellitus without complication, without long-term current use of insulin (ICD-10 - E11.9) 11/21/2024 H/O malignant melanoma of skin (ICD-10 - Z85.820) 02/25/2024 Anxiety disorder, unspecified type (ICD-10 - F41.9) 01/21/2024 Estrogen receptor positive status [ER+] (ICD-10 - Z17.0) 01/21/2024 Heart murmur (ICD-10 - R01.1) 11/21/2024 Ductal carcinoma (ICD-10 - C80.1) 01/21/2024 History of colon polyps (ICD-10 - Z86.0100) Plan Of Treatment Pending Test Test Name Order Date MRI : Brain with and w/o contrast 2024 Carotid Duplex 12/01/2024 Next Appt Details Provider Name:Vielka flores, 12/21/2024 04:30:00 PM, [address], [address], [place], [place], [id number], Insurance Providers Payer Name Payer Address Payer Phone Subscriber Number Group Number Insured Name Patient Relationship to Insured Coverage Start Date Coverage End Date [employer] [address] [place] [address] [id number] ARSEN MASSEY Self - patient is the insured Medications Administered Medication Instructions Date of Administration Dosage Notes Dexamethasone 03/23/2007 1ML Medical (General) History Medical History History ICD Code gestational DM migraines goiter fluid retention thin membrane disease of the kidneys buldging disc in back (6,7,9,10) *Succinylcholine Apnea 2007* insect bite with cellulitis left arm 10/01 011 BREAST CANCER MELANOMA COVID 19 vaccine, Moderna ONE INJECTION, WITH SEVERE REACTION Surgical History Surgery Date(Month/Year) D&C X2 2002 bladder biopsy 11/2004 gallbladder removed 02/04 hernia repair ([facility]) 06-01-07 hysterectomy, abdominal left ankle 04/2013 Breast Biopsy was + for ductal CA 07/2014 lumpectomy, lymph nodes negative 08/27/19 melanoma, abdomin 12/2016 melanoma, Left side of face 03/25/17 Colonoscopy, Dr. Webster 12/19/22 Hospitalization History Reason Date(Month/Year) [facility] 12/01-12/22/15 see above
[2024-12-01] MEDS: SODIUM CHLORIDE 0.9% 10ML SYR (RAD ONLY) 10 ML IV (15:02)
[2024-12-01] MEDS: GADOTERIDOL INJ 20ML SYRINGE 17 ML IV (15:02)
== END 2024-12-01 23:59 | disposition home or self-care (01) ==
LOC: RAD 14:19
PROVIDERS: PCP Family Medicine; Visit Provider Family Medicine
DX: I67.82 Cerebral ischemia (principal); R26.89 Other abnormalities of gait and mobility
CPT/HCPCS: 70553; A9576

== ENCOUNTER 2024-12-21 17:22 | Outpatient (CLI) | payer BC, SELFPAY ==
--- OUTSIDE RECORDS SUMMARY | 2024-01-21 10:30 | XMS_ITS ---
Author Organization [facility] Address [address] [place] [id number] Care Team Providers Care Breakfast Bar Attendant Name Role Phone Digna Hull Primary Care Provider Allergies Allergen (clinical drug ingredient) Drug/Non Drug Allergy documented on EMR Reaction Allergy Type Onset Date Status codeine Codeine Unknown Drug Allergy Active succinylcholine Succinylcholine paralysis Drug Allergy Active Results Component Value Reference Range Notes CBC Venipuncture (in house) Reviewed date:01/22/2024 10:30:18 AM Interpretation:Normal Performing Lab: Notes/Report: Normal wbc 8.7 3.5 - 10 lymph 31.3 15 - 50 mid 6.8 2 - 15 gran 61.9 35 - 80 rbc 5.44 3.5 - 5.5 hgb 16.6 11.5 - 16.5 hct 49.8 35 - 55 mcv 91.4 75 - 100 mch 30.6 25 - 35 mchc 33.4 31 - 38 platlet 243 100 - 400 P-Comprehensive Metabolic Pa marco (CMP) Reviewed date:01/26/2024 03:51:39 PM Interpretation:gluc 110, alk phos 127, ast 53 Performing Lab: Notes/Report: CLIA: [id number] Shine Condon MD, Traffic Routing Engineer [address] [facility] , [address], [place] [address] Test performed by [employer] Sodium 143 135-145 mmol/L Potassium 4.0 3.5-5.3 mmol/L Chloride 104 97-108 mmol/L CO2 26 22-32 mmol/L Glucose 110 65-99 mg/dL BUN 15 6-20 mg/dL Creatinine 0.82 0.50-1.00 mg/dL Calcium 9.0 8.6-10.4 mg/dL eGFR by Creatinine 82 >59 mL/min/1.73m2 Protein 7.6 6.0-8.3 g/dL Albumin 4.2 3.5-5.3 g/dL Alkaline Phosphatase 127 35-121 IU/L ALT (SGPT) 41 <5-47 IU/L AST (SGOT) 53 <5-40 IU/L Bilirubin, Total 0.5 <0.2-1.2 mg/dL A/G Ratio 1.2 1.1-2.5 P-TSH Reviewed date:01/26/2024 03:51:39 PM Interpretation:Normal Performing Lab: Notes/Report: Test performed by [employer] [address] [place] [address] , [address], [place] [address] Shine Condon MD, Traffic Routing Engineer CLIA: [id number] TSH 2.67 0.43-5.25 mU/L Reason For Referral Reason follow-up colon poly ps Diagnosis 1 History of colon kristopher yps (Z86.0100) [facility] Referring Provider First Name Digna Zamora Referring Provider Last Name Kurtis Referring Provider [facility] Referred Provider SAMARA DICKSON Referred Provider Specialty General Surg bob General Notes Stephanie aWlter 11:29:58 AM > 04/08/2023 with Referral Priority Routine Reason follow-up breast can cer Diagnosis 1 H/O malignant neopla sm of breast (Z85.3) [facility] Referring Provider First Name Digna Zamora Referring Provider Last Name Kurtis Referring Provider [facility] Referred Provider Ayad Nolasco Referred Provider Specialty Hematology/O ncology General Notes Stephanie Walter 8:41:07 AM > faxed to 's office, Stephanie Walter 01/22/2024 10:22:16 AM > 01/27/2024 at 01:00pm Referral Priority Routine REASON FOR VISIT Check Up and Refills, Needs labs & colon cancer screening Medications Medication SIG (Take, Route, Frequency, Duration) Notes Start Date End Date Status Losartan Potassium 25 MG 1 tablet Orally Once a day; Duration: 30 day(s) 01/21/2024 Active ALPRAZolam 0.5 MG 1 tab(s) orally 3 times a day; Duration: 30 day(s) 01/05/2024 Active Metoprolol Succinate ER 50 mg TAKE ONE TABLET BY MOUTH EVERY DAY; Duration: 30 days Active Furosemide 20 mg TAKE ONE TABLET BY MOUTH TWICE DAILY NEEDED; Duration: 30 days Active Promethazine HCl 25 MG 1 tab(s) orally tid prn 10/15/2020 Not-Taking Saxenda 18 MG/3ML 1.2mg subcutaneously once a day; Duration: 30 day(s) 02/24/2022 Not-Taking Contrave 8-90 MG week one: 1qam, week two:1 bid, week three:2qam and 1 qpm, Week 4 onward: 2 bid orally as directed 09/12/2020 Not-Taking Omeprazole 40 MG 1 cap(s) orally once a day; Duration: 30 day(s) 04/09/2022 Active Potassium Chloride ER 10 MEQ 1 tab(s) orally once daily; Duration: 30 day(s) 06/03/2018 Not-Taking FLONASE NASAL SPRAY 50MCG PER SPRAY 1 SPRAY EACH NOSTRIL EACH NOSTRIL QD *Please review for potential replacement for e-prescription and drug interaction check* 02/21/2019 Not-Taking Vital Signs Blood pressure systolic 152 mm Hg 01/21/20 24 Blood pressure diastolic 80 mm Hg 024 Heart Rate 82 /min 01/21/2024 Height 61.50 in 01/21/2024 Weight 215.2 lbs 01/21/2024 BMI 40.00 kg/m2 01/21/2024 Encounters Encounter Location Date Provider Diagnosis [facility] [address] [facility] [address] [place], [place] [phone] 01/21/2024 Digna Hull Essential hypertensi on I10 ; Depression with anxiety F41.8 ; Acquired hypothyroidism E03.9 ; H/O malignant neoplasm of breast Z85.3 ; Estrogen receptor positive status [ER+] Z17.0 ; Heart murmur R01.1 and History of colon polyps Z86.0100 Assessments Encounter Date Diagnosis (ICD Code) Assessment Notes Treatment Notes Treatment Clinical Notes Section Notes 01/21/2024 Essential hypertension (ICD-10 - I10) 01/21/2024 Depression with anxiety (ICD-10 - F41.8) 01/21/2024 Acquired hypothyroidism (ICD-10 - E03.9) 01/21/2024 H/O malignant neoplasm of breast (ICD-10 - Z85.3) 01/21/2024 Estrogen receptor positive status [ER+] (ICD-10 - Z17.0) 01/21/2024 Heart murmur (ICD-10 - R01.1) 01/21/2024 History of colon polyps (ICD-10 - Z86.0100) Plan Of Treatment Medication Medication Name Sig Start Date Stop Date Notes Losartan Potassium 25 MG 1 tablet Orally Once a day; Duration: 30 day(s) 01/21/2024 Referrals Referral Date Details 01/21/2024 01/21/2024, follow-u p colon polyps, SAMARA DICKSON 01/21/2024 01/21/2024, follow-u p breast cancer, Ayad Nolasco Next Appt Details Follow Up: 4 Weeks, Reason: Provider Name:Vielka Hensley y, 12/21/2024 04:30:00 PM, [address] [facility] [address] [facility], [address], [place], [place], [id number], Progress Notes * HELLEN MASSEYEDOB: 5 (59 yo F)Acc No.[id number]:01/21/2024 Progress Notes Patient: ARSEN ROSALES Provider: Digna Hull M.D. :1965 A ge:58 Y S ex:Female Date:01/21/2024 Address:[address] [place] [address] , [id number] Subjective: * Chief Complaints: * 1 . Check Up and Refills. 2. Needs labs & colon cancer screening. * HPI: C ardiology: The pt is here for a check up and refills. Pt states she does check her BP occasionally and it is doing good. Pt states she is needing refills sent to Clinic pharmacy. She is busy with all her son's activities. Denies : Chest Pain. D enies : Short of Breath. D enies : Dizziness. D enies : Palpitations. * ROS: D ERMATOLOGY: no R parker. n o H patrick. G ASTROENTEROLOGY: no N ausea. n o V omiting. n o D iarrhea.? U ROLOGY: no D ifficulty urinating. n o B lood in urine. * Medical History: g estational DM, Migraines, Goiter, Fluid retention, Thin membrane disease of the kidneys, Buldging disc in back (6,7,9,10), *Succinylcholine Apnea 2007*, Insect bite with cellulitis left arm 09/2010, BREAST CANCER, MELANOMA, COVID 19 vaccine, Moderna ONE INJECTION, WITH SEVERE REACTION. * Surgical History: D &C X2 2002, bladder biopsy 11/2004, gallbladder removed 02/04, hernia repair ([facility]) 06-01-07, hysterectomy, abdominal , left ankle 04/2013, Breast Biopsy was + for ductal CA 07/2014, lumpectomy, lymph nodes negative 08/27/2015, melanoma, abdomin 12/2016, melanoma, Left side of face 03/25/17. * Hospitalization/Major Diagno stic Procedure: s ee above , [facility] 12/01-12/22/15. * Family History: F ather: , coronary artery disease, diabetes. M other: alive. P aternal Grand Father: . P aternal Grand Mother: . M aternal Grand Father: . M aternal Grand Mother: . 1 son(s) , 2 daughter(s) - healthy. . * Social History: C URRENT TOBACCO USE S moking Status: Patient does NOT smoke. C affeine: no. Exercise: no. Home smoke detector use: yes. Marital Status: Single. 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 Past smoking status: no. Recreational drug use: no. Alcohol: no. Sexually active: yes. Travel ouside [place]: no. * Medications: T aking Omeprazole 40 MG Capsule Delayed Release 1 cap(s) orally once a day , Taking Furosemide 20 mg Tablet TAKE ONE TABLET BY MOUTH TWICE DAILY NEEDED , Taking Metoprolol Succinate ER 50 mg Tablet Extended Release 24 Hour TAKE ONE TABLET BY MOUTH EVERY DAY , Taking ALPRAZolam 0.5 MG Tablet 1 tab(s) orally 3 times a day , Not-Taking Potassium Chloride ER 10 MEQ Tablet Extended Release 1 tab(s) orally once daily , Not-Taking FLONASE NASAL SPRAY 50MCG PER SPRAY 1 SPRAY EACH NOSTRIL EACH NOSTRIL QD , Notes to Pharmacist: *Please review for potential replacement for e-prescription and drug interaction check*, Not-Taking Promethazine HCl 25 MG Tablet 1 tab(s) orally tid prn , Not-Taking Contrave 8-90 MG Tablet Extended Release 12 Hour week one: 1qam, week two:1 bid, week three:2qam and 1 qpm, Week 4 onward: 2 bid orally as directed , Not-Taking Saxenda 18 MG/3ML Solution Pen-injector 1.2mg subcutaneously once a day , Discontinued Saxenda 18 MG/3ML Solution Pen-injector 0.6mg Subcutaneous once daily , Discontinued DULoxetine HCl 30 mg Capsule Delayed Release Particles TAKE ONE CAPSULE BY MOUTH EVERY DAY , Medication List reviewed and reconciled with the patient * Allergies: C odeine, Succinylcholine: paralysis. Objective: * Vitals: W t:215.2, Temp:98.3, BP:152/80, HR:82, Nurse:GEORGETTE, Ht: 61.50, BMI:40.00. * Examination: G eneral Examination: General Appearance: N AD. H EENT: u nremarkable.?Oral cavity: n o lesions, mucosa moist and WNL, no erythema. N ayush: s upple, no lymphadenopathy. C hest: n ormal shape and expansion. H eart: R SR, murmur at LSB. L ungs: c lear to auscultation. A bdomen: soft and nontender. N eurologic Exam:?Intact, gait normal. S kin: n ormal, no rash. P eripheral pulses: n ormal (2+) bilaterally. B ack: mild dorsal kyphosis. E xtremities: 2 + leg edema. ? Assessment: * Assessment: 1. E ssential hypertension - I10 (Primary) 2 . D epression with anxiety - F41.8 3 . A cquired hypothyroidism - E03.9 4 . H /O malignant neoplasm of breast - Z85.3 5 . E strogen receptor positive status [ER+] - Z17.0 6. H eart murmur - R01.1 7 . H istory of colon polyps - Z86.0100 Plan: * Treatment: Value Reference Range A /G Ratio 1.2 1.1-2.5 - * A lbumin 4.2 3.5-5.3 - g/dL * A lkaline Phosphatase 127 H 35-121 - IU/L * A LT (SGPT) 41 <5-47 - IU/L * A ST (SGOT) 53 H <5-40 - IU/L * B ilirubin, Total 0.5 <0.2-1.2 - mg/dL * B UN 15 6-20 - mg/dL * C alcium 9.0 8.6-10.4 - mg/dL * C hloride 104 97-108 - mmol/L * C O2 26 22-32 - mmol/L * C reatinine 0.82 0.50-1.00 - mg/dL * G lucose 110 H 65-99 - mg/dL * P otassium 4.0 3.5-5.3 - mmol/L * S odium 143 135-145 - mmol/L * P rotein 7.6 6.0-8.3 - g/dL * e GFR by Creatinine 82 >59 - mL/min/1.73m2 * Leila Miranda 01/26/2024 3:51 :32 PM >See phone encounter 2.?Acquired hypothyroidism?LAB: P-TSH (Collection Date & Time - 01/21/2024 02:55 PM)?Normal* Value Reference Range T SH 2.67 0.43-5.25 - mU/L * Leila Miranda 01/26/2024 3:51 :32 PM >See phone encounter 3.?H/O malignant neoplasm of breast?LAB: CBC Venipuncture (in house) (Collection Date & Time - 01/21/2024)? Normal* Value Reference Range w bc 8.7 3.5 - 10 * l ymph 31.3 15 - 50 * m id 6.8 2 - 15 * g ran 61.9 35 - 80 * r bc 5.44 3.5 - 5.5 * h gb 16.6 11.5 - 16.5 * h ct 49.8 35 - 55 * m cv 91.4 75 - 100 * m ch 30.6 25 - 35 * m chc 33.4 31 - 38 * p latlet 243 100 - 400 * Kaur Rebollar 01/21/2024 4:22 :43 PM > ? Referral To:Ayad Nolasco??Hematology/Oncology ?Reason:follow-up breast cancer 4.?History of colon polyps? Referral To:SAMARA DICKSON??General Surgery ?Reason:follow-up colon polyps * Procedure Codes: 8 5025 CBC WITH AUTO DIFF, 95482 VENIPUNCT, ROUTINE* * Follow Up: 4 Weeks * Images: Billing Information: * Visit Code: 20564 Office Visit, Est Pt., Level 4. * Procedure Codes: 23011 CBC WITH AUTO DIFF. 38594 VENIPUNCT, ROUTINE*. * Electronic signature of Digna Hull MD on 12/21/2024 at 05:26 PM EDT Sign off status: Pending * Provider: Digna Hull M.D. Date: 03/22/2023 Generated for Leliai corona/Acosta/eTmynorsmitting on: 05:26 PM EDT History and Physical Notes * HPI (History of Present Illness) Category Sub-Category Detail Notes Category Not es Cardiology Short of Breath Chest Pain Palpitations Dizziness Examination Category Sub-Category Detail Notes Category Not es General Examination HEENT: unremarkable Heart: RSR, murmur at LSB Lungs: clear to auscultatio n Abdomen: soft and nontender Extremities: 2+ leg edema General Appearance: NAD Skin: normal, no rash Neurologic Exam: Intact, gait normal Neck: supple, no lymphaden opathy Oral cavity: no lesions, mucosa m oist and WNL, no erythema Peripheral pulses: normal (2+) bilatera lly Back: mild dorsal kyphosis Chest: normal shape and exp ansion Consultation Request Notes Referral Date Referring Provider Referred Provider Not es 01/21/2024 Digna Hull CHARLES follow- up colon polyps 01/21/2024 Digna Hull Michael follow-up breast cancer
--- OUTSIDE RECORDS SUMMARY | 2024-02-25 10:30 | XMS_ITS ---
Author Organization [facility] Address [address] [place] [id number] Care Team Providers Care Enthone Solder Stripper Name Role Phone Digna Hull Primary Care Provider Allergies Allergen (clinical drug ingredient) Drug/Non Drug Allergy documented on EMR Reaction Allergy Type Onset Date Status codeine Codeine Unknown Drug Allergy Active succinylcholine Succinylcholine paralysis Drug Allergy Active Results Component Value Reference Range Notes Glycohemoglobin A1c (in hous e) Reviewed date:02/25/2024 03:53:01 PM Interpretation: Performing Lab: Notes/Report: glycohemoglobin 6.8% 5 - 6.5 % Ultrasound : Breasts, bilate ral Reviewed date:03/18/2024 12:29:51 PM Interpretation:benign, annual f/u Performing Lab: Notes/Report: benign, annual f/u Mammogram Reviewed date:03/18/2024 12:29:51 PM Interpretation:benign, annual f/u Performing Lab: Notes/Report: benign, annual f/u result benign, annual f/u REASON FOR VISIT 4 weeks Medications Medication SIG (Take, Route, Frequency, Duration) Notes Start Date End Date Status ALPRAZolam 0.5 MG 1 tab(s) orally 3 times a day; Duration: 30 day(s) 02/25/2024 Active Potassium Chloride ER 10 MEQ 1 tab(s) orally once daily; Duration: 30 day(s) 06/03/2018 Not-Taking Ozempic (0.25 or 0.5 MG/DOSE) 2 MG/3ML 0.25mg Subcutaneous once weekly 02/25/2024 Active Metoprolol Succinate ER 50 mg TAKE ONE TABLET BY MOUTH EVERY DAY; Duration: 30 days Active Losartan Potassium 25 MG 1 tablet Orally Once a day; Duration: 30 day(s) 01/21/2024 Active Saxenda 18 MG/3ML 1.2mg subcutaneously once a day; Duration: 30 day(s) 02/24/2022 Not-Taking Contrave 8-90 MG week one: 1qam, week two:1 bid, week three:2qam and 1 qpm, Week 4 onward: 2 bid orally as directed 09/12/2020 Not-Taking Promethazine HCl 25 MG 1 tab(s) orally tid prn 10/15/2020 Not-Taking Furosemide 20 mg TAKE ONE TABLET BY MOUTH TWICE DAILY NEEDED; Duration: 30 days Active FLONASE NASAL SPRAY 50MCG PER SPRAY 1 SPRAY EACH NOSTRIL EACH NOSTRIL QD *Please review for potential replacement for e-prescription and drug interaction check* 02/21/2019 Not-Taking Problems Problem Type SNOMED Code ICD Code Onset Dates Problem Status W/U Status Risk Notes Problem Type II diabetes mellitus without complication (222302039) Type 2 diabetes mellitus without complication, without long-term current use of insulin (E11.9) Active confirmed Vital Signs Blood pressure systolic 142 mm Hg 02/25/20 24 Blood pressure diastolic 80 mm Hg 024 Heart Rate 67 /min 02/25/2024 Height 61.50 in 02/25/2024 Weight 216.4 lbs 02/25/2024 BMI 40.22 kg/m2 02/25/2024 Encounters Encounter Location Date Provider Diagnosis [facility] [address] [place] [phone] 02/25/2024 Digna Hull H/O malignant neopla sm of breast Z85.3 ; Hyperglycemia R73.9 ; Situational depression F43.21 ; Type 2 diabetes mellitus without complication, without long-term current use of insulin E11.9 and Anxiety disorder, unspecified type F41.9 Assessments Encounter Date Diagnosis (ICD Code) Assessment Notes Treatment Notes Treatment Clinical Notes Section Notes 02/25/2024 H/O malignant neoplasm of breast (ICD-10 - Z85.3) 02/25/2024 Hyperglycemia (ICD-10 - R73.9) 02/25/2024 Situational depression (ICD-10 - F43.21) 02/25/2024 Type 2 diabetes mellitus without complication, without long-term current use of insulin (ICD-10 - E11.9) 02/25/2024 Anxiety disorder, unspecified type (ICD-10 - F41.9) Plan Of Treatment Medication Medication Name Sig Start Date Stop Date Notes ALPRAZolam 0.5 MG 1 tab(s) orally 3 ti mes a day; Duration: 30 day(s) 02/25/2024 Ozempic (0.25 or 0.5 MG/DOSE) 2 MG/3ML 0.25mg Subcutaneous once weekly 02/25/2024 Next Appt Details Follow Up: 2 Months, Reason: Provider Name:Vielka Hensley mark, 12/21/2024 04:30:00 PM, [address], [address] , [place], [place], [phone], Progress Notes * HELLEN MASSEYEDOB: 5 (59 yo F)Acc No.[id number]:02/25/2024 Progress Notes Patient: ARSEN ROSALES Provider: Digna Hull M.D. :1965 A ge:59 Y S ex:Female Date:02/25/2024 Address:[address] [place] [address] , [place], [id number] Subjective: * Chief Complaints: * 1 . 4 weeks. * HPI: C ardiology: The pt is here today for a check up on Hypertension. Pt states she doing good and denies any new concerns. Pt is fasting. Denies : Chest Pain. D enies : [...] Diagno stic Procedure: s ee above , [facility] 12/01-12/22/15. * Family History: F [...] Marital Status: Single. Occupation: [employer] - [employer]. Past smoking status: no. Recreational drug use: no. Alcohol: no. Sexually active: yes. Travel ouside [place]: no. * Medications: T aking Furosemide 20 mg Tablet TAKE ONE TABLET BY MOUTH TWICE DAILY NEEDED , Taking ALPRAZolam 0.5 MG Tablet 1 tab(s) orally 3 times a day , Taking Losartan Potassium 25 MG Tablet 1 tablet Orally Once a day , Taking Metoprolol Succinate ER 50 mg Tablet Extended Release 24 Hour TAKE ONE TABLET BY MOUTH EVERY DAY , Not-Taking Potassium Chloride ER 10 MEQ Tablet Extended Release 1 tab(s) orally once daily , Not- Taking FLONASE NASAL SPRAY 50MCG PER SPRAY 1 [...] 1.2mg subcutaneously once a day , Discontinued Omeprazole 40 MG Capsule Delayed Release 1 cap(s) orally once a day , Medication List reviewed and reconciled with the patient * Allergies: C odeine, Succinylcholine: paralysis. Objective: * Vitals: W t:216.4, Temp:98.1, BP:142/80, HR:67, Nurse:GEORGETTE, Ht: 61.50, Repeat BP:138/68, BMI:40.22. * Examination: G eneral Examination: General Appearance: [...] no rash. P eripheral pulses: n ormal . ?Back: mild dorsal kyphosis. E xtremities: 2 + leg edema. Assessment: * Assessment: 1. H /O malignant neoplasm of breast - Z85.3 (Primary) 2 . H yperglycemia - R73.9 3 . S ituational depression - F43.21 4 . T ype 2 diabetes mellitus without complication, without long-term current use of insulin - E11.9 5. A nxiety disorder, unspecified type - F41.9 Plan: * Treatment: ?Imaging: Mammogram (Performed Date - 03/14/2024)?benign, annual f/u* Value Reference Range r esult benign, annual f/u * Leila Miranda 02/26/2024 2:13 :24 PM > No Pre-cert required Asha Braden 03/18/2024 12:29:39 PM >Patient informed of normal results. 2.?Hyperglycemia?LAB: Glycohemoglobin A1c (in house) (Collection Date & Time - 02/25/2024)* Value Reference Range g lycohemoglobin 6.8% 5 - 6.5 % * Asha Braden 02/25/2024 3: 51:22 PM > , Provider reviewed results while patient in office. 3.?Type 2 diabetes mellitus without complication, without long-term current use of insulin? Start Ozempic (0.25 or 0.5 MG/DOSE) Solution Pen-injector, 2 MG/3ML, 0.25mg, Subcutaneous, once weekly, 1, Refills 4.??4.?Anxiety disorder, unspecified type? Refill ALPRAZolam Tablet, 0.5 MG, 1 tab(s), orally, 3 times a day, 30 day(s), 90 Tablet, Refills 1. ? * Procedure Codes: 3 6416 CAPILLARY BLOOD DRAW, 35642 GLYCATED HEMOGLOBIN TEST, Modifiers: QW * Follow Up: 2 Months * Images: Billing Information: * Visit Code: 52411 Office Visit, Est Pt., Level 4. * Procedure Codes: 67263 CAPILLARY BLOOD DRAW. 11078 GLYCATED HEMOGLOBIN TEST. Modifiers: QW * Electronic signature of Digna Hull MD on 12/21/2024 at 05:27 PM EDT Sign off status: Pending * Provider: Digna Hull M.D. Date: 04/27/2023 Generated for Kade jeter/Acosta/eTmynorsmitting on: 1 05:27 PM EDT History and Physical Notes * [...] and WNL, no erythema Peripheral pulses: normal Back: mild dorsal kyphosis Chest: normal shape and exp ansion
--- OUTSIDE RECORDS SUMMARY | 2024-04-14 10:15 | XMS_ITS ---
Author Organization [facility]-[place] Address [address] [place] [id number] Care Team Providers Care Printing Roller Polisher Name Role Phone Digna Hull Primary Care [...] Duration: 6 days 04/14/2024 Active Vital Signs Blood pressure systolic 110 mm Hg 04/14/19 25 Blood pressure diastolic 78 mm Hg 025 Heart Rate 96 /min 04/14/2024 Height 61.50 in 04/14/2024 Weight 199.4 lbs 04/14/2024 BMI 37.06 kg/m2 04/14/2024 Encounters Encounter Location Date Provider Diagnosis [facility] [address] [facility] [address] [place], [place] [phone] 04/14/2024 Digna Hull Influenza A J10.1 an [...] Appt Details Follow Up: Thursday, Reason: Provider Name:Vielka flores, 12/21/2024 04:30:00 PM, [address] [facility] [address], [place], [place], [id number], Progress Notes * HELLEN MASSEYEDOB: 5 (59 yo F)Acc No.[id number]:04/14/2024 Progress Notes Patient: ARSEN ROSALES Provider: Digna Hull M.D. :1965 A ge:59 Y S ex:Female Date:04/14/2024 Address:[address] [place] [address] , [id number] Subjective: * Chief Complaints: * 1 . Flu not getting better. * HPI: E NT/respiratory: The pt states she started last with c/o shaking chills, fever,cough and vomiting. Weak and dizzy. Pt states she went to the [facility] on Thursday and tested positive for Flu. [...] Diagno stic Procedure: s ee above , [facility] 12/01-12/22/15. * Family History: F ather: [...] use: yes. Marital Status: Single. Occupation: HOME [employer]. Past smoking status: no. Recreational drug use: [...] * Procedure Codes: 9 4760 [place], [address] COVID TEST IN HOUSE, Modifiers: QW , [address] CAPILLARY BLOOD DRAW, 23120 CBC WITH AUTO DIFF, 3074F SYST BP LT 130 MM HG, 3078F DIAST BP < 80 MM HG * Follow Up: M onday * Images: Billing Information: * Visit Code: 21550 Office Visit, Est Pt., Level 4. * Procedure Codes: [address] [place]. [address] COVID TEST IN HOUSE. Modifiers: QW 75720 CAPILLARY BLOOD DRAW. 72605 CBC WITH AUTO DIFF. 3074F SYST BP LT 130 MM HG. 3078F DIAST BP < 80 MM HG. * Electronic signature of Digna Hull MD on 12/21/2024 at 05:27 PM EDT Sign off status: Pending * Provider: Digna Hull M.D. Date: 0 04/14/2024 Generated for Kade jeter/Acosta/eTmynorsmitting on: 1 05:27 [...]
--- OUTSIDE RECORDS SUMMARY | 2024-04-18 10:45 | XMS_ITS ---
Author Organization [facility]-[place] Address [address] [facility] [address] [place] [phone] Care Team Providers Care Special Library Librarian Name Role Phone Digna Hull Primary Care [...] A influenza (J10.1) Active confirmed Vital Signs Blood pressure systolic 132 mm Hg 04/18/19 25 Blood pressure diastolic 76 mm Hg 025 Heart Rate 80 /min 04/18/2024 Height 61.50 in 04/18/2024 Weight 199.2 lbs 04/18/2024 BMI 37.02 kg/m2 04/18/2024 Encounters Encounter Location Date Provider Diagnosis [facility] [address] [facility] [address] [place], [place] [id number] 04/18/2024 Digna Hull Type A influenza J10.1 [...] Follow Up: 4 Weeks, Reason: Provider Name:Vielka flores, 12/21/2024 04:30:00 PM, [address], [place], [place], [phone], Progress Notes * HELLEN MASSEYEDOB: 5 (59 yo F)Acc No.[id number]:04/18/2024 Patient: ARSEN ROSALES Provider: Digna Hull M.D. :1965 A ge:59 Y S ex:Female Date:04/18/2024 Address:[address] [place] [address] [id number] Subjective: * Chief Complaints: * 1 . [...] Diagno stic Procedure: s ee above , [facility] 12/01-12/22/15. * Family History: F ather: [...] influenza - J10.1 (Primary) 2 . B [place] 37.0-37.9, adult - Z68.37? 3. T ype 2 diabetes mellitus without complication, without long-term current use of insulin - E11.9 Plan: * Treatment: * Procedure Codes: 9 4760 [place], 3075F SYST BP GE 130 - 139MM HG, 3078F DIAST BP < 80 MM HG * Follow Up: 4 Weeks * Images: Billing Information: * Visit Code: 90198 Office Visit, Est Pt., Level 3. * Procedure Codes: 51472 [place]. 3075F SYST BP GE 130 - 139MM HG. 3078F DIAST BP < 80 MM HG. * Electronic signature of Digna Hull MD on 12/21/2024 at 05:26 PM EDT Sign off status: Pending * Provider: Digna Hull M.D. Date: 0 04/18/2024 Generated for Leliai ng/Acosta/eTransmitting on: 1 05:26 PM EDT History and Physical Notes [...]
--- OUTSIDE RECORDS SUMMARY | 2024-05-16 12:15 | XMS_ITS ---
Author Organization [facility] Address [address] [place] [id number] Care Team Providers Care Investigator Narcotics Name Role Phone Digna Hull Primary Care [...] date:05/18/2024 04:45:32 PM Interpretation:Normal Performing Lab: Notes/Report: CLIA: [id number] Shine Condon MD, [facility][note 3]0 [facility] , [address], [place] [address] Test performed by [employer], [facility] Sodium 139 135-145 mmol/L Potassium 4.6 3.5-5.3 [...] Duration: 30 days 05/09/2024 Active Vital Signs Blood pressure systolic 122 mm Hg 05/17/19 25 Blood pressure diastolic 76 mm Hg 025 Heart Rate 68 /min 05/16/2024 Height 61.50 in 05/16/2024 Weight 198.4 lbs 05/16/2024 BMI 36.88 kg/m2 05/16/2024 Encounters Encounter Location Date Provider Diagnosis [facility] [address] [place], [place] [id number] 05/16/2024 Digna Hull BMI 35.0-35.9,adult Z68.35 ; [...] Follow Up: 2 Months, Reason: Provider Name:Vielka Tresa flores, 12/21/2024 04:30:00 PM, [address], [address], [place], [place], [id number], Progress Notes * HELLEN MASSEYEDOB: 5 (59 yo F)Acc No.[id number]:05/16/2024 Progress Notes Patient: ARSEN ROSALES Provider: Digna Hull M.D. :1965 A ge:59 Y S ex:Female Date:05/16/2024 Address:[address] [place] [address] , [facility] [id number] Subjective: * Chief Complaints: * 1 . [...] Diagno stic Procedure: s ee above , [facility] 12/01-12/22/15. * Family History: F [...] use: yes. Marital Status: Single. Occupation: HOME [employer]. Past smoking status: no. Recreational drug use: [...] edema. ? Assessment: * Assessment: 1. B WY 35.0-35.9,adult - Z68.35 (Primary) 2 . A [...] Procedure Codes: 3 6416 CAPILLARY BLOOD DRAW, 05769 GLYCATED HEMOGLOBIN TEST, Modifiers: QW , 3074F SYST BP LT 130 MM HG, 3078F DIAST BP < 80 MM HG, 3044F HG A1C LEVEL LT 7.0% * Follow Up: 2 Months * Images: Billing Information: * Visit Code: 01077 Office Visit, Est Pt., Level 4. * Procedure Codes: 30469 CAPILLARY BLOOD DRAW. 23172 GLYCATED HEMOGLOBIN TEST. Modifiers: QW 3074F SYST BP LT 130 MM HG. 3078F DIAST BP < 80 MM HG. 3044F HG A1C LEVEL LT 7.0%. * Electronic signature of Dinga Hull MD on 12/21/2024 at 05:28 PM EDT Sign off status: Pending * Provider: Digna Hull M.D. Date: 0 05/16/2024 Generated for Kade jeter/Acosta/eTransmitting on: 1 05:28 PM EDT History and Physical Notes * [...]
--- OUTSIDE RECORDS SUMMARY | 2024-07-11 12:15 | XMS_ITS ---
Author Organization [facility]-[place] Address [address] [place] [phone] Care Team Providers Care Locomotive Boilermaker Name Role Phone Digna Hull Primary Care [...] Status W/U Status Risk Notes Problem Rosacea ([id number]) Rosacea (L71.9) Active confirmed Vital Signs Blood pressure systolic 120 mm Hg 07/12/19 25 Blood pressure diastolic 80 mm Hg 025 Heart Rate 74 /min 07/11/2024 Height 61.50 in 07/11/2024 Weight 191.4 lbs 07/11/2024 BMI 35.58 kg/m2 07/11/2024 Encounters Encounter Location Date Provider Diagnosis [facility] [address] [place] [address] 36 [facility] [address] [place], [place] [phone] 07/11/2024 Digna Hull Facial dermatitis L30.9 ; [...] Reason: Provider Name:Vielka flores, 12/21/2024 04:30:00 PM, [address] [place] [address] 36 [facility], [address], [place], [phone], Progress Notes * ADRIAN MASSEYOB: 5 (59 yo F)Acc No.[id number]:07/11/2024 Progress Notes Patient: ARSEN ROSALES Provider: Digna Hull M.D. :1965 A ge:59 Y S ex:Female Date:07/11/2024 Address:[address] [place] [address] , [id number] Subjective: * Chief Complaints: [...] stic Procedure: s ee above , [facility] 12/01-12/22/15. * Family History: F ather: [...] . R osacea - L71.9 ?3. B MD 35.0-35.9,adult - Z68.35 Plan: * Treatment: * Follow Up: 4 Weeks * Images: Billing Information: * Visit Code: 73076 Office Visit, Est Pt., Level 4. * Procedure Codes: * Electronic signature of Digna Hull MD on 12/21/2024 at 05:28 PM EDT Sign off status: Pending * Provider: Digna Hull M.D. Date: 07/11/2024 Generated for Kade jeter/Acosta/eTransmitting on: 1 05:28 [...]
--- OUTSIDE RECORDS SUMMARY | 2024-08-22 12:15 | XMS_ITS ---
Author Organization [facility] Address [address] [place] [id number] Care Team Providers Care Rubber Goods Inspector Tester Name Role Phone Digna Hull Primary Care Provider [phone] Allergies Allergen (clinical drug ingredient) Drug/Non Drug [...] date:08/30/2024 02:54:10 PM Interpretation:Normal Performing Lab: Notes/Report: CLIA: [id number] Shine Condon MD, Linen Clerk [address] [place] [address] , [address], [place] [address] Test performed by [employer], [facility] Sodium 143 135-145 mmol/L Potassium 3.7 3.5-5.3 [...] Duration: 30 day(s) 01/21/2024 Active Vital Signs Blood pressure systolic 130 mm Hg 08/23/19 25 Blood pressure diastolic 82 mm Hg 025 Heart Rate 83 /min 08/22/2024 Height 61.50 in 08/22/2024 Weight 192.4 lbs 08/22/2024 BMI 35.76 kg/m2 08/22/2024 Encounters Encounter Location Date Provider Diagnosis [facility] [address] [place] [id number] 08/22/2024 Digna Hull Type 2 diabetes mellitus [...] [address], [address], [place], [place], [id number], Progress Notes * HELLEN MASSEYEDOB: 5 (59 yo F)Acc No.[id number]:08/22/2024 Progress Notes Patient: ARSEN ROSALES Provider: Digna Hull M.D. :1965 A ge:59 Y S ex:Female Date:08/22/2024 Address:[address] [place] [address] , [id number] Subjective: * Chief Complaints: * 1 . [...] (Danielle). 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 He's throwing everything away that he worked [...] Diagno stic Procedure: s ee above , [facility] 12/01-12/22/15. * Family History: F ather: [...] Marital Status: Single. 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 Past smoking status: no. Recreational drug use: [...] insulin - E11.9 (Primary) 2 . B NH 35.0-35.9,adult - Z68.35 3 . F amily [...] * Images: Billing Information: * Visit Code: 65607 Office Visit, Est Pt., Level 3. * Procedure Codes: 37685 GLYCATED HEMOGLOBIN TEST. Modifiers: QW 3044F HG [...] 0 08/22/2024 Generated for Kade jeter/Acosta/eTransmitting on: 1 05:28 PM EDT History and Physical Notes * HPI (History of Present Illness) Category Sub-Category Detail Notes Category Not es Endocrinology Problems with the Ozempic. Is supposed to be taking 1mg. Constitutional Problems with her son. He is having adjustment reaction of childhood. He is living with another family (Danielle). 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 He's throwing everything away that he worked [...]
--- OUTSIDE RECORDS SUMMARY | 2024-09-26 12:15 | XMS_ITS ---
Author Organization [facility] Address [address] [place] [id number] Care Team Providers Care Surgical Aide Name Role Phone Digna Hull Primary Care [...] date:09/29/2024 01:13:14 PM Interpretation:Normal Performing Lab: Notes/Report: CLIA: [id number] Shine Condon MD, Commercial Construction Superintendent [facility] , [address], [place] [address] Test performed by [employer], [facility] Sodium 141 135-145 mmol/L Potassium 3.8 3.5-5.3 mmol/L Chloride 105 97-108 mmol/L CO2 25 20-32 mmol/L Glucose 94 65-99 mg/dL BUN 12 6-20 mg/dL Creatinine 0.68 0.50-1.00 mg/dL Calcium 9.0 8.6-10.4 mg/dL eGFR by Creatinine 100 >59 mL/min/1.73m2 P-TSH Reviewed date:09/29/2024 01:13:14 PM Interpretation:Normal Performing Lab: Notes/Report: Test performed by [employer] [address] [place] [address] , [address], [place] [address] Shine Condon MD, Commercial Construction Superintendent CLIA: [id number] TSH 1.97 0.43-5.25 mU/L REASON FOR VISIT [...] week; Duration: 28 days Active Vital Signs Blood pressure systolic 140 mm Hg 09/27/19 25 Blood pressure diastolic 80 mm Hg 025 Heart Rate 97.8 /min 09/26/2024 Height 61.50 in 09/26/2024 Weight 188.8 lbs 09/26/2024 BMI 35.09 kg/m2 09/26/2024 Encounters Encounter Location Date Provider Diagnosis [facility] [address] [facility] [address] [place] [phone] 09/26/2024 Digna Hull Type 2 diabetes memo [...] Follow Up: 2 Months, Reason: Provider Name:Vielka flores, 12/21/2024 04:30:00 PM, [address], [address] , [place], [place], [id number], Progress Notes * HELLEN MASSEYEDOB: 5 (59 yo F)Acc No.[id number]:09/26/2024 Progress Notes Patient: ARSEN ROSALES Provider: Digna Hull M.D. :1965 A ge:59 Y S ex:Female Date:09/26/2024 Address:[address] [place] [address] , [id number] Subjective: * Chief Complaints: * 1 . [...] Left side of face 03/25/17, Colonoscopy, Dr. Webster 12/19/22. * Hospitalization/Major Diagno stic Procedure: s ee above , [facility] 12/01-12/22/15. * Family History: F [...] Marital Status: Single. 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 Recreational drug use: [...] insulin - E11.9 (Primary) 2 . B OR 35.0-35.9,adult - Z68.35 3 . A cquired [...] Codes: 8 5025 CBC WITH AUTO DIFF, 18400 VENIPUNCT, ROUTINE*, 1036F TOBACCO NON-USER * Follow Up: 2 Months * Images: Billing Information: * Visit Code: 20025 Office Visit, Est Pt., Level 3. * Procedure Codes: 64862 CBC WITH AUTO DIFF. 50982 VENIPUNCT, ROUTINE*. 1036F TOBACCO NON-USER. * Electronic signature of Digna Hull MD on 12/21/2024 at 05:27 PM EDT Sign off status: Pending * Provider: Digna Hull M.D. Date: 0 09/26/2024 Generated for Kade jeter/Acosta/eTmynorsmitting on: 1 05:27 PM EDT History and Physical Notes * Examination Category [...]
--- OUTSIDE RECORDS SUMMARY | 2024-11-21 12:15 | XMS_ITS ---
Author Organization [facility] Address [address] [place] [id number] Care Team Providers Care Web Master Name Role Phone Digna Hull Primary Care Provider Allergies Allergen (clinical drug ingredient) Drug/Non Drug Allergy documented on EMR Reaction Allergy Type Onset Date Status codeine Codeine Unknown Drug Allergy Active succinylcholine Succinylcholine paralysis Drug Allergy Active Results Component Value Reference Range Notes P-Comprehensive Metabolic Pa marco (CMP) Reviewed date:11/29/2024 01:16:03 PM Interpretation:Normal Performing Lab: Notes/Report: Test performed by [facility], [address] , [address], [place] [address] Shine Condon MD, Early Childhood Associate CLIA: [id number] Sodium 144 135-145 mmol/L Potassium 3.7 3.5-5.3 [...] W/U Status Risk Notes Problem Abnormal gait (75908140) Imbalance (R26.89) Active confirmed Vital Signs Blood pressure systolic 140 mm Hg 11/22/19 25 Blood pressure diastolic 68 mm Hg 025 Heart Rate 56 /min 11/21/2024 Height 61.50 in 11/21/2024 Weight 181.6 lbs 11/21/2024 BMI 33.75 kg/m2 11/21/2024 Encounters Encounter Location Date Provider Diagnosis [facility] [address] [place], [place] [phone] 11/21/2024 Digna Hull Imbalance R26.89 ; Type [...] Provider Name:Vielka flores, 12/21/2024 04:30:00 PM, [address], [address], [place], [place], [id number], Progress Notes * HELLEN MASSEYEDOB: 5 (59 yo F)Acc No.[id number]:11/21/2024 Progress Notes Patient: ARSEN ROSALES Provider: Digna Hull M.D. :1965 A ge:59 Y S ex:Female Date:11/21/2024 Address:[address] [place], [place] [id number] Subjective: * Chief Complaints: * 1 . [...] Marital Status: Single. 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 Recreational drug [...] Walter 11/22/2024 09:1 0:08 AM EDT > auth#[id number]; valid 11/22/2024-02/19/2025; CPT code 62361; faxed to [facility] Joana Crowell 12/16/2024 12:39:59 PM EDT [...] * Images: Billing Information: * Visit Code: 30091 Office Visit, Est Pt., Level 4. * Procedure Codes: 1036F TOBACCO NON-USER. * Electronic signature of Digna Hull MD on 12/21/2024 at 05:29 PM EDT Sign off status: Pending * Provider: Digna Hull M.D. Date: 0 11/21/2024 Generated for Kade jeter/Acosta/eTransmitting on: 1 05:29 PM EDT History and Physical Notes * [...]
--- OUTSIDE RECORDS SUMMARY | 2024-12-21 17:26 | XMS_ITS | Clinical Summary ---
Author Organization [facility] Address [address] [place] [address] Care Team Providers Care Dye House Hand Name Role Phone Noah Hull MD Primary [...] to Health Maintenance Insurance EMPLOYEE Care Teams Dye House Hand Relationship Specialty Start Date End Date Noah Hull MD PCP - General Neurology 09/07/15
--- OUTSIDE RECORDS SUMMARY | 2024-12-21 17:29 | XMS_ITS | Patient Health Record ---
[facility] Address [address] [place] [id number] Care Team Providers Care Lace Machine Operator Name Role Phone Digna Hull Primary Care Provider Debby Vielka Unavailable [phone] Allergies Allergen (clinical drug ingredient) Drug/Non Drug [...] phos 127, ast 53 Performing Lab: Notes/Report: Test performed by [facility], [facility] [address] [place] [address] , [address], [place] [address] Shine Condon MD, Production Stage Manager CLIA: [id number] Sodium 143 135-145 mmol/L Potassium 4.0 3.5-5.3 [...] Interpretation:Normal Performing Lab: Notes/Report: Test performed by [facility], [address] , [address], [place] [address] Shine oCndon MD, Production Stage Manager CLIA: [id number] TSH 2.67 0.43-5.25 mU/L Glycohemoglobin A1c (in hous e) Reviewed date:02/25/2024 03:53:01 PM Interpretation: Performing Lab: Notes/Report: glycohemoglobin 6.8% 5 - 6.5 % Ultrasound : Breasts, bilate ral Reviewed date:03/18/2024 12:29:51 PM Interpretation:benign, annual f/u Performing Lab: Notes/Report: benign, annual f/u Mammogram Reviewed date:03/18/2024 12:29:51 PM Interpretation:benign, annual f/u Performing Lab: Notes/Report: benign, annual f/u result benign, annual f/u CBC Fingerstick (in house) Reviewed date:04/15/2024 08:57:14 [...] 12:34:01 PM Interpretation:Negative Performing Lab: Notes/Report: Negative Glycohemoglobin A1c (in hous e) Reviewed date:05/16/2024 06:39:15 PM Interpretation: Performing Lab: Notes/Report: glycohemoglobin 5.5% 5 - 6.5 % P-Comprehensive Metabolic Pa marco ([facility]) Reviewed date:05/18/2024 04:45:32 PM Interpretation:Normal Performing Lab: Notes/Report: Test performed by [facility] [address] [place] [address] , [place] [address] Shine Condon MD, Production Stage Manager CLIA: [id number] Sodium 139 135-145 mmol/L Potassium 4.6 3.5-5.3 [...] - 6.5 % P-Comprehensive Metabolic Pa marco ([facility]) Reviewed date:08/30/2024 02:54:10 PM Interpretation:Normal Performing Lab: Notes/Report: Test performed by [facility] [address] [place] [address] [address], [place] [address] Shine Condon MD, Production Stage Manager CLIA: [id number] Sodium 143 135-145 mmol/L Potassium 3.7 3.5-5.3 [...] Interpretation:Normal Performing Lab: Notes/Report: Test performed by [facility], [address] , [address], [place] [address] Shine Condon MD, Production Stage Manager CLIA: [id number] Sodium 141 135-145 mmol/L Potassium 3.8 3.5-5.3 mmol/L Chloride 105 97-108 mmol/L CO2 25 20-32 mmol/L Glucose 94 65-99 mg/dL BUN 12 6-20 mg/dL Creatinine 0.68 0.50-1.00 mg/dL Calcium 9.0 8.6-10.4 mg/dL eGFR by Creatinine 100 >59 mL/min/1.73m2 P-TSH Reviewed date:09/29/2024 01:13:14 PM Interpretation:Normal Performing Lab: Notes/Report: Test performed by [facility] [address] [place] [address] [address], [place] [address] Shine Condon MD, Production Stage Manager CLIA: [id number] TSH 1.97 0.43-5.25 mU/L Urinalysis - Inhouse (Not ye t reviewed by provider) Interpretation: Performing Lab: Notes/Report: Color/Clarity yellow Leuk neg Nitrite neg Urobili 3.2 Protein neg pH 5.5 Blood 1+ Sp. Gr. 1.010 Ketone neg Bili neg Gluc neg P-Comprehensive Metabolic Pa marco (CMP) Reviewed date:11/29/2024 01:16:03 PM Interpretation:Normal Performing Lab: Notes/Report: CLIA: [id number] Shine Condon MD, Production Stage Manager [address] [place] [address] [address], [place] [address] Test performed by [facility] Sodium 144 135-145 mmol/L Potassium 3.7 3.5-5.3 [...] Ischemia Performing Lab: Notes/Report: Chronic Microvascular Ischemia Medications Medication SIG (Take, Route, Frequency, Duration) [...] e a day; Duration: 30 days Active metroNIDAZOLE 0.75 % 1 application Exter oc Twice a day 07/11/2024 Active Immunizations Vaccine Route Administration Date Status [...] Notes Problem Malignant neoplasm of female breast (602440610) Malignant neoplasm of unspecified site of left female breast (C50.912) Active confirmed Problem Palpitations (71894240) Palpitations (R00.2) Active confirmed Problem Vitamin D deficiency (70710004) Vitamin D deficiency (E55.9) Active confirmed Problem Essential hypertension (80132262) Essential hypertension (I10) Active confirmed Problem Rosacea (193312478) Rosacea (L71.9) Active conf irmed Problem Mixed anxiety and depressive disorder (992825624) Depression with anxiety (F41.8) Active confirmed Problem Primary insomnia (7450686) Primary insomnia (F51.01) Active confirmed Problem Chronic rhinitis (60123082) Chronic rhinitis (J31.0) Active confirmed Problem 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) Active confirmed Problem Obese class II (756357626560864) BMI 35.0-35.9,adult (Z68.35) Active confirmed Problem Personal history of primary malignant neoplasm of breast (966202166) H/O malignant neoplasm of breast (Z85.3) Active confirmed Problem Gastroesophageal reflux disease without esophagitis (178148281) Gastroesophageal reflux disease without esophagitis (K21.9) Active confirmed Problem Acquired hypothyroidism (144282284) Acquired hypothyroidism (E03.9) Active confirmed Problem Reactive depression (situational) (50916512) Situational depression (F43.21) Active confirmed Problem Obese class II (941196290325188) BMI 36.0-36.9,adult (Z68.36) Active confirmed Problem Anxiety state (157454779) Anxiety disorder, unspecified type (F41.9) Active confirmed Problem Occlusion and stenosis of multiple and bilateral cerebral arteries (807021843) Carotid stenosis, bilateral (I65.23) Active confirmed Problem Abnormal gait (65530390) Imbalance (R26.89) Active confirmed Problem Obese class II (752451081035910) BMI 37.0-37.9, adult (Z68.37) Active confirmed Problem Type II diabetes mellitus without complication (572460335) Type 2 diabetes mellitus without complication, without long-term current use of insulin (E11.9) Active confirmed Problem Adjustment disorder with mixed emotional features (33158360) Situational mixed anxiety and depressive disorder (F43.23) Active confirmed Problem Ductal carcinoma (41928269) Ductal carcinoma (C80.1) Active confirmed Problem History of malignant melanoma of the skin (215529821377) H/O malignant melanoma of skin (Z85.820) Active confirmed Problem Type A influenza (J10.1) Active confirmed Problem Thin basement membrane nephropathy (988359537) 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) Active confirmed Vital Signs Heart Rate 63 /min 12/21/2024 Blood pressure diastolic 70 mm Hg 12/21/2024 Height 61.50 in 12/21/2024 Blood pressure systolic 130 mm Hg 12/21/2024 Weight 176 lbs 12/21/2024 BMI 32.71 kg/m2 12/21/2024 Encounters Encounter Location Date Provider Diagnosis [facility] [address] [facility] [address] [place], [place] [id number] 01/21/2024 Digna Hull Essential hypertensi on I10 ; Depression with anxiety F41.8 ; Acquired hypothyroidism E03.9 ; H/O malignant neoplasm of breast Z85.3 ; Estrogen receptor positive status [ER+] Z17.0 ; Heart murmur R01.1 and History of colon polyps Z86.0100 [facility] [address] [place] [id number] 02/25/2024 Digna Hull H/O malignant neopla sm of breast Z85.3 ; Hyperglycemia R73.9 ; Situational depression F43.21 ; Type 2 diabetes mellitus without complication, without long-term current use of insulin E11.9 and Anxiety disorder, unspecified type F41.9 [facility] [address] [place], [place] [id number] 04/14/2024 Digna Hull Influenza A J10.1 an d Acute bronchitis, unspecified organism J20.[address] [place], [place] [id number] 04/18/2024 Digna Hull Type A influenza J10 .1 ; BMI 37.0-37.9, adult Z68.37 and Type 2 diabetes mellitus without complication, without long-term current use of insulin E11.9 [facility] [address] [place], [place] [id number] 05/16/2024 Digna Hull BMI 35.0-35.9,adult Z68.35 ; Anxiety disorder, unspecified type F41.9 and Type 2 diabetes mellitus without complication, without long-term current use of insulin E11.9 [facility] [address] [place], [place] [id number] 07/11/2024 Digna Hull Facial dermatitis L3 0.9 ; Rosacea L71.9 and BMI 35.0-35.9,adult Z68.35 [facility] [address] [place], [place] [id number] 08/22/2024 Digna Hull Type 2 diabetes memo itus without complication, without long-term current use of insulin E11.9 ; BMI 35.0-35.9,adult Z68.35 and Family disruption Z63.8 [facility] [address] [place], [place] [id number] 09/26/2024 Digna Hull Type 2 diabetes memo itus without complication, without long-term current use of insulin E11.9 ; BMI 35.0-35.9,adult Z68.35 and Acquired hypothyroidism E03.9 [facility] [address] [place], [place] [id number] 11/21/2024 Digna Hull Imbalance R26.89 ; T ype 2 diabetes mellitus without complication, without long-term current use of insulin E11.9 ; Anxiety disorder, unspecified type F41.9 ; H/O malignant melanoma of skin Z85.820 and Ductal carcinoma C80.1 [facility] [address] [place], [place] [id number] 12/21/2024 Vielka Crowdy Dizziness R42 ; Imbalance R26.89 and Type 2 diabetes mellitus without complication, without long-term current use of insulin E11.9 [facility] [address] [place], [place] [id number] 12/07/2024 Digna Hull [facility] [address] [place] [id number] 12/09/2024 Digna Hull [facility] [address] [place], [place] [id number] 01/04/2024 Digna Hull Situational mixed anxiety and depressive disorder F43.23 [facility] [address] [place] [id number] 01/26/2024 Digna Hull [facility] [address] [place] [id number] 02/29/2024 Digna Hull [facility] [address] [place] [id number] 05/05/2024 Digna Hull [facility] [address] [place], [place] [id number] 06/16/2024 Digna Hull Type 2 diabetes memo itus without complication, without long-term current use of insulin E11.9 [facility] [address] [place], [place] [id number] 08/23/2024 Digna Hull Type 2 diabetes memo itus without complication, without long-term current use of insulin E11.9 [facility] [address] [place], [place] [id number] 09/12/2024 Digna Hull BMI 35.0-35.9,adult Z68.35 [facility] [address] [place], [place] [id number] 09/12/2024 Digna Hull [facility] [address] [place], [place] [id number] 11/28/2024 Digna Hull [facility] [address] [place], [place] [id number] 12/08/2024 Digna Hull Assessments Encounter Date Diagnosis (ICD [...] J20.9) 04/14/2024 Influenza A (ICD-10 - J10.1) 04/18/2024 BMI 37.0-37.9, adult (ICD-10 - Z68.37) 04/18/2024 Type A influenza (ICD-10 - J10.1) 05/16/2024 BMI 35.0-35.9,adult (ICD-10 - Z68.35) 05/16/2024 Anxiety disorder, unspecified type (ICD-10 - F41.9) 07/11/2024 Facial dermatitis (ICD-10 - L30.9) 08/22/2024 BMI 35.0-35.9,adult (ICD-10 - Z68.35) 08/22/2024 Type 2 diabetes mellitus without complication, without long-term current use of insulin (ICD-10 - E11.9) 08/23/2024 Type 2 diabetes mellitus without complication, [...] - E11.9) 11/21/2024 Imbalance (ICD-10 - R26.89) 12/21/2024 Dizziness (ICD-10 - R42) 12/21/2024 Imbalance (ICD-10 - R26.89) 11/21/2024 Type 2 diabetes mellitus without complication, without long-term current use of insulin (ICD-10 - E11.9) 07/11/2024 BMI 35.0-35.9,adult (ICD-10 - Z68.35) 09/26/2024 BMI 35.0-35.9,adult (ICD-10 - Z68.35) 08/22/2024 Family disruption (ICD-10 - Z63.8) 05/16/2024 Type 2 diabetes mellitus without complication, without long-term current use of insulin (ICD-10 - E11.9) 04/18/2024 Type 2 diabetes mellitus without complication, [...] use of insulin (ICD-10 - E11.9) 12/21/2024 Type 2 diabetes mellitus without complication, [...] Treatment Pending Test Test Name Order Date Urinalysis - Inhouse 12/21/2024 Carotid Duplex 12/01/2024 H-CBC 12/21/2024 H-CMP 12/21/2024 H-Glycohemoglobin A1C 12/21/2024 H-VITAMIN B12 12/21/2024 Next Appt Details Provider Name:Vielka Gtz Ayden flores, 12/21/2024 04:30:00 PM, [address], [place], [place], [id number], Insurance Providers Payer Name Payer Address Payer Phone Subscriber Number Group Number Insured Name Patient Relationship to Insured Coverage Start Date Coverage End Date [facility] [address] [place] [address] [id number] ARSEN MASSEY Self - patient is the [...] [place] 07/2014 lumpectomy, lymph nodes negative 08/27/19 16 melanoma, abdomin 12/2016 melanoma, Left side of face 03/25/17 Colonoscopy, Dr. Webster 12/19/22 Hospitalization History Reason Date(Month/Year) [facility] 12/01-12/22/15 see above
--- OUTSIDE RECORDS SUMMARY | 2024-12-21 17:29 | XMS_ITS | Clinical Summary ---
Author Organization [facility] Address [address] [place] [address] Care Team Providers Care Teletypesetter Monitor Name Role Phone Heath Hull MD Primary Care Provider [phone] Social History Tobacco Use Types Packs/Day Years [...] 2015 UKY-Zoster Vaccines (1 of 2) 2015 YRK-WSUID-66 Vaccine (3 - season) 2024 11/14/2020, 09/26/2020 [...] complete this topic Insurance ANTH Care Teams Teletypesetter Monitor Relationship Specialty Start Date End Date Heath Hull MD [address] [place] [address] PCP - General 07/13/20
[2024-12-21 18:05] LABS: Hematocrit 45.8 % (37.0-47.0); Hemoglobin 15.7 g/dL (12.2-16.2); Immature Granulocytes % 0.2 %; Mean Corpuscular HGB Conc 34.3 g/dL (31.8-35.4); Mean Corpuscular Hemoglobin 30.7 pg (27.0-31.2); Mean Corpuscular Volume 89.5 fl (81-99); Nucleated Red Blood Cells % 0 %; Platelet Count 246 K/mm3 (142-424); Red Blood Count 5.12 M/mm3 (4.20-5.40); Red Cell Distribution Width-SD 40.8 fL; White Blood Count 9.8 K/mm3 (4.8-10.8)
[2024-12-21 18:28] LABS: Hemoglobin A1C 5.2 % (4.0-6.0)
[2024-12-21 19:12] LABS: Alanine Aminotransferase 21 U/L (12-78); Albumin Level 3.9 g/dl (3.5-5.0); Albumin/Globulin Ratio 1.2 (1.1-1.8); Alkaline Phosphatase 128 U/L (38-126); Anion Gap 13.8 mEq/L (5-15); Aspartate Amino Transferase 29 U/L (14-36); Bilirubin,Total 0.9 mg/dl (0.2-1.3); Blood Urea Nitrogen 14 mg/dl (7-17); Calcium 8.8 mg/dl (8.4-10.2); Carbon Dioxide 28 mmol/L (22.0-30.0); Chloride 103 mmol/L (98-107); Creatinine,Serum 0.80 mg/dl (0.52-1.04); Estimated Glomerular Filt Rate 73 ml/min (>60); GFR (African American) 89 ML/MIN (>60); Globulin 3.2 g/dL (1.3-3.2); Glucose 100 mg/dl (74-100); Potassium 3.8 mmoL/L (3.5-5.1); Sodium 141 mmol/L (136-145); Total Protein,Serum 7.1 g/dl (6.3-8.2)
[2024-12-21 20:02] LABS: Vitamin B12 281 pg/mL (239-931)
== END 2024-12-21 23:59 | disposition home or self-care (01) ==
LOC: LAB 17:24
PROVIDERS: PCP Family Medicine; Visit Provider Physician Assistant
DX: E11.9 Type 2 diabetes mellitus without complications (principal); R42 Dizziness and giddiness; R26.89 Other abnormalities of gait and mobility
CPT/HCPCS: 36415; 80053; 82607; 83036; 85025

== ENCOUNTER 2025-01-23 07:48 | Outpatient (CLI) | payer BC, SELFPAY ==
--- OUTSIDE RECORDS SUMMARY | 2024-04-14 09:15 | XMS_ITS ---
Author Organization [facility] Address [address] [place] [id number] Care Team Providers Care Pet Nutrition Specialist Name Role Phone Digna Hull Primary Care Provider Allergies Allergen (clinical drug ingredient) Drug/Non Drug Allergy documented on EMR Reaction Allergy Type Onset Date Status codeine Codeine Unknown Drug Allergy Active succinylcholine Succinylcholine paralysis Drug Allergy Active Results Component Value Reference Range Notes CBC Fingerstick (in house) Reviewed date:04/15/2024 08:57:14 AM Interpretation: Performing Lab: Notes/Report: wbc 6.5 3.5 - 10 lym 35.9% 15 - 50 mid 7.3% 2 - 15 gran 56.8% 35 - 80 rbc 5.62 3.5 - 5.5 hgb 17.0 11.5 - 16.5 hct 50.4 35 - 55 mcv 89.6 75 - 100 mch 30.3 25 - 35 mchc 33.8 31 - 38 plat 145 100 - 400 Covid test (in house) Reviewed date:04/14/2024 03:12:12 PM Interpretation: Performing Lab: Notes/Report: Result: Neg CXR Reviewed date:04/15/2024 12:34:01 PM Interpretation:Negative Performing Lab: Notes/Report: Negative REASON FOR VISIT flu not getting better Medications Medication SIG (Take, Route, Frequency, Duration) Notes Start Date End Date Status levoFLOXacin 750 MG 1 tablet Orally Once a day; Duration: 5 day(s) 04/14/2024 Active ALPRAZolam 0.5 MG 1 tab(s) orally 3 times a day; Duration: 30 day(s) 02/25/2024 Active Ozempic (0.25 or 0.5 MG/DOSE) 2 MG/3ML 0.25mg Subcutaneous once weekly 02/25/2024 Active FLONASE NASAL SPRAY 50MCG PER SPRAY 1 SPRAY EACH NOSTRIL EACH NOSTRIL QD *Please review for potential replacement for e-prescription and drug interaction check* 02/21/2019 Not-Taking Potassium Chloride ER 10 MEQ 1 tab(s) orally once daily; Duration: 30 day(s) 06/03/2018 Not-Taking Contrave 8-90 MG week one: 1qam, week two:1 bid, week three:2qam and 1 qpm, Week 4 onward: 2 bid orally as directed 09/12/2020 Not-Taking Saxenda 18 MG/3ML 1.2mg subcutaneously once a day; Duration: 30 day(s) 02/24/2022 Not-Taking Losartan Potassium 25 MG 1 tablet Orally Once a day; Duration: 30 day(s) 01/21/2024 Active Furosemide 20 mg TAKE ONE TABLET BY MOUTH TWICE DAILY NEEDED; Duration: 30 days Active Metoprolol Succinate ER 50 mg TAKE ONE TABLET BY MOUTH EVERY DAY; Duration: 30 days Active Promethazine HCl 25 MG 1 tab(s) orally tid prn 10/15/2020 Not-Taking Medrol 4 MG as directed orally daily; Duration: 6 days 04/14/2024 Active Vital Signs Weight 199.4 lbs 04/14/2024 Blood pressure systolic 110 mm Hg 04/14/19 25 Blood pressure diastolic 78 mm Hg 025 Heart Rate 96 /min 04/14/2024 Height 61.50 in 04/14/2024 BMI 37.06 kg/m2 04/14/2024 Encounters Encounter Location Date Provider Diagnosis [facility] [address] [facility] [address] [place], [place] [phone] 04/14/2024 Digna Hull Influenza A J10.1 an d Acute bronchitis, unspecified organism J20.9 Assessments Encounter Date Diagnosis (ICD Code) Assessment Notes Treatment Notes Treatment Clinical Notes Section Notes 04/14/2024 Influenza A (ICD-10 - J10.1) 04/14/2024 Acute bronchitis, unspecified organism (ICD-10 - J20.9) Plan Of Treatment Medication Medication Name Sig Start Date Stop Date Notes levoFLOXacin 750 MG 1 tablet Orally Once a day; Duration: 5 day(s) 04/14/2024 Medrol 4 MG as directed orally d aily; Duration: 6 days 04/14/2024 Next Appt Details Follow Up: Thursday, Reason: Provider Name:Digna Boateng er, 03/06/2025 04:00:00 PM, [address] [facility] [address], [place], [place], [id number], Progress Notes * HELLEN MASSEYEDOB: 5 (59 yo F)Acc No.[id number]:04/14/2024 Progress Notes Patient: ARSEN ROSALES Provider: Digna Hull M.D. :1965 A ge:59 Y S ex:Female Date:04/14/2024 Address:[address] [place] [address] , [id number] Subjective: * Chief Complaints: * 1 . Flu not getting better. * HPI: E NT/respiratory: The pt states she started last with c/o shaking chills, fever,cough and vomiting. Weak and dizzy. Pt states she went to the [facility] on Thursday and tested positive for Flu. Was not treatred with Tamiflu. Pt states she is not feeling much better. Pt states she is feeling very weak. Pt states she has not been able to eat very much at all. 59 year old female presents with c/o cough. Denies : Fever. * ROS: D ERMATOLOGY: no R parker. [...] stic Procedure: s ee above , [facility] 12/01-12/22/15. * Family History: F ather: , [...] use: yes. Marital Status: Single. Occupation: HOME [employer]. Past smoking status: no. Recreational drug use: no. Alcohol: no. Sexually active: yes. Travel ouside [place]: no. * Medications: T aking Furosemide 20 mg Tablet TAKE ONE TABLET BY MOUTH TWICE DAILY NEEDED , Taking Losartan Potassium 25 MG Tablet 1 tablet Orally Once a day , Taking Metoprolol Succinate ER 50 mg Tablet Extended Release 24 Hour TAKE ONE TABLET BY MOUTH EVERY DAY , Taking Ozempic (0.25 or 0.5 MG/DOSE) 2 MG/3ML Solution Pen-injector 0.25mg Subcutaneous once weekly , Taking ALPRAZolam 0.5 MG Tablet 1 [...] Pen-injector 1.2mg subcutaneously once a day , Medication List reviewed and reconciled with the patient * Allergies: C odeine, Succinylcholine: paralysis. Objective: * Vitals: W t:199.4, Temp:98.3, BP:110/78, HR:96, O2 Sat:97% on RA, Nurse:GEORGETTE, Ht: 61.50, BMI:37.06. * Examination: G eneral Examination: General Appearance: ill but in no acute distress, coughing, congested. H EENT: u nremarkable. O ral cavity: n o lesions, mucosa moist and WNL, no erythema. N ayush: s upple, no lymphadenopathy. C hest: n ormal shape and expansion. H eart: R SR. L ungs: deep cough, rhonchi. A bdomen: soft and nontender. N eurologic Exam: I ntact, gait normal. S kin: n ormal, no rash. P eripheral pulses: n ormal . B ack: mild dorsal kyphosis. E xtremities: trace leg edema. Assessment: * Assessment: 1. I nfluenza A - J10.1 (Primary) 2 . A cute bronchitis, unspecified organism - J20.9 Plan: * Treatment: Value Reference Range w bc 6.5 3.5 - 10 * l ym 35.9% 15 - 50 * m id 7.3% 2 - 15 * g ran 56.8% 35 - 80 * r bc 5.62 3.5 - 5.5 * h gb 17.0 11.5 - 16.5 * h ct 50.4 35 - 55 * m cv 89.6 75 - 100 * m ch 30.3 25 - 35 * m chc 33.8 31 - 38 * p lat 145 100 - 400 * Asha Braden 04/14/2024 3:5 6:26 PM > , Provider reviewed results while patient in office. ?LAB: Covid test (in house) (Collection Date & Time - 04/14/2024)* Value Reference Range R esult: Neg * Asha Braden 04/14/2024 2:5 5:09 PM > , Provider reviewed results while patient in office. ?Imaging: CXR (Performed Date - 04/14/2024)?Negative* Stephanie Walter 04/14/2024 3:13: 59 PM > printed; will give to patient upon check out, Asha Braden Alana 04/15/2024 12:33:45 PM > Patient informed of normal results. * Procedure Codes: 9 4760 [place], [address] COVID TEST IN HOUSE, Modifiers: QW , [address] CAPILLARY BLOOD DRAW, 69756 CBC WITH AUTO DIFF, 3074F SYST BP LT 130 MM HG, 3078F DIAST BP < 80 MM HG * Follow Up: M onday * Images: Billing Information: * Visit Code: 89786 Office Visit, Est Pt., Level 4. * Procedure Codes: [address] [place]. [address] COVID TEST IN HOUSE. Modifiers: QW 23570 CAPILLARY BLOOD DRAW. 42847 CBC WITH AUTO DIFF. 3074F SYST BP LT 130 MM HG. 3078F DIAST BP < 80 MM HG. * Electronic signature of Digna Hull MD on 01/23/2025 at 07:52 AM EST Sign off status: Pending * Provider: Digna Hull M.D. Date: 0 04/14/2024 Generated for Kade jeter/Acosta/Lunasmitting on: 1 03/25/2024 07:52 AM EST History and Physical Notes * HPI (History of Present Illness) Category Sub-Category Detail Notes Category Not es ENT/respiratory cough Fever Examination Category Sub-Category Detail Notes Category Not es General Examination HEENT: unremarkable Heart: RSR Lungs: deep cough, rhonchi Abdomen: soft and nontender Extremities: trace leg edema General Appearance: ill but in no acute distress, coughing, congested Skin: normal, no rash Neurologic Exam: Intact, gait normal Neck: supple, no lymphaden opathy Oral cavity: no lesions, mucosa m oist and WNL, no erythema Peripheral pulses: normal Back: mild dorsal kyphosis Chest: normal shape and exp ansion
--- OUTSIDE RECORDS SUMMARY | 2024-04-18 09:45 | XMS_ITS ---
Author Organization [facility]-[place] Address [address] [facility] [address] [place] [id number] Care Team Providers Care Platinum And Palladium Kettle Tender Name Role Phone Digna Hull Primary Care Provider Allergies Allergen (clinical drug ingredient) Drug/Non Drug Allergy documented on EMR Reaction Allergy Type Onset Date Status codeine Codeine Unknown Drug Allergy Active succinylcholine Succinylcholine paralysis Drug Allergy Active REASON FOR VISIT f/u on flu Medications Medication SIG (Take, Route, Frequency, Duration) Notes Start Date End Date Status Furosemide 20 mg TAKE ONE TABLET BY MOUTH TWICE DAILY NEEDED; Duration: 30 days Active Contrave 8-90 MG week one: 1qam, week two:1 bid, week three:2qam and 1 qpm, Week 4 onward: 2 bid orally as directed 09/12/2020 Not-Taking Promethazine HCl 25 MG 1 tab(s) orally tid prn 10/15/2020 Not-Taking FLONASE NASAL SPRAY 50MCG PER SPRAY 1 SPRAY EACH NOSTRIL EACH NOSTRIL QD *Please review for potential replacement for e-prescription and drug interaction check* 02/21/2019 Not-Taking Saxenda 18 MG/3ML 1.2mg subcutaneously once a day; Duration: 30 day(s) 02/24/2022 Not-Taking Potassium Chloride ER 10 MEQ 1 tab(s) orally once daily; Duration: 30 day(s) 06/03/2018 Not-Taking Ozempic (0.25 or 0.5 MG/DOSE) 2 MG/3ML 0.5mg Subcutaneous once weekly 02/25/2024 Active Medrol 4 MG as directed orally daily; Duration: 6 days 04/14/2024 Active levoFLOXacin 750 MG 1 tablet Orally Once a day; Duration: 5 day(s) 04/14/2024 Active ALPRAZolam 0.5 MG 1 tab(s) orally 3 times a day; Duration: 30 day(s) 02/25/2024 Active Metoprolol Succinate ER 50 mg TAKE ONE TABLET BY MOUTH EVERY DAY; Duration: 30 days Active Losartan Potassium 25 MG 1 tablet Orally Once a day; Duration: 30 day(s) 01/21/2024 Active Problems Problem Type SNOMED Code ICD Code Onset Dates Problem Status W/U Status Risk Notes Problem Type A influenza (J10.1) Active confirmed Vital Signs Weight 199.2 lbs 04/18/2024 Blood pressure systolic 132 mm Hg 04/18/19 25 Blood pressure diastolic 76 mm Hg 025 Heart Rate 80 /min 04/18/2024 Height 61.50 in 04/18/2024 BMI 37.02 kg/m2 04/18/2024 Encounters Encounter Location Date Provider Diagnosis [facility] [address] [facility] [address] [place], [place] [id number] 04/18/2024 Digna Hull Type A influenza J10.1 ; BMI 37.0-37.9, adult Z68.37 and Type 2 diabetes mellitus without complication, without long-term current use of insulin E11.9 Assessments Encounter Date Diagnosis (ICD Code) Assessment Notes Treatment Notes Treatment Clinical Notes Section Notes 04/18/2024 Type A influenza (ICD-10 - J10.1) 04/18/2024 BMI 37.0-37.9, adult (ICD-10 - Z68.37) 04/18/2024 Type 2 diabetes mellitus without complication, without long-term current use of insulin (ICD-10 - E11.9) Plan Of Treatment Medication Medication Name Sig Start Date Stop Date Notes Ozempic (0.25 or 0.5 MG/DOSE) 2 MG/3ML 0.5mg Subcutaneous once weekly 02/25/2024 Next Appt Details Follow Up: 4 Weeks, Reason: Provider Name:Digna Boateng er, 03/06/2025 04:00:00 PM, [address], [place], [phone], Progress Notes * HELLEN MASSEYEDOB: 5 (59 yo F)Acc No.[id number]:04/18/2024 Patient: ARSEN ROSALES Provider: Digna Hull M.D. :1965 A ge:59 Y S ex:Female Date:04/18/2024 Address:[address] [place] [address] [id number] Subjective: * Chief Complaints: * 1 . F/u on flu. * HPI: E NT/respiratory: The pt is here for a follow up on Influenza. Pt states she is doing better but still feeling very fatigued. 59 year old female presents with c/o cough. c/o Short of Breath. Denies : sore throat. D enies : Fever. D enies : Chest Pain. * ROS: D ERMATOLOGY: no R parker. [...] Diagno stic Procedure: s ee above , [facility] 12/01-12/22/15. * Family History: F ather: [...] Marital Status: Single. Occupation: HOME [employer]. Past smoking status: no. Recreational drug use: [...] orally 3 times a day , Taking levoFLOXacin 750 MG Tablet 1 tablet Orally Once a day , Taking Medrol 4 MG Tablet Therapy Pack as directed orally daily , Not-Taking Potassium Chloride ER 10 MEQ Tablet Extended Release 1 tab(s) orally once daily , Not-Taking FLONASE NASAL SPRAY 50MCG PER SPRAY 1 SPRAY EACH NOSTRIL EACH NOSTRIL QD , Notes to Pharmacist: *Please review for potential replacement for e-prescription and drug interaction check*, Not-Taking Promethazine HCl 25 MG Tablet 1 tab(s) orally tid prn , Not- Taking Contrave 8-90 MG Tablet Extended Release 12 Hour week one: 1qam, week two:1 bid, week three:2qam and 1 qpm, Week 4 onward: 2 bid orally as directed , Not-Taking Saxenda 18 MG/3ML Solution Pen-injector 1.2mg subcutaneously once a day , Medication List reviewed and reconciled with the patient * Allergies: C odeine, Succinylcholine: paralysis. Objective: * Vitals: W t:199.2, Temp:98.1, BP:132/76, HR:80, O2 Sat:98% on RA, Nurse:GEORGETTE, Ht: 61.50, BMI:37.02. * Examination: G eneral Examination: General Appearance: [...] . ?Back: mild dorsal kyphosis. E xtremities: t race leg edema. Assessment: * Assessment: 1. T ype A influenza - J10.1 (Primary) 2 . B [place] 37.0-37.9, adult - Z68.37? 3. T ype 2 diabetes mellitus without complication, without long-term current use of insulin - E11.9 Plan: * Treatment: * Procedure Codes: 9 4760 [place], 3075F SYST BP GE 130 - 139MM HG, 3078F DIAST BP < 80 MM HG * Follow Up: 4 Weeks * Images: Billing Information: * Visit Code: 65907 Office Visit, Est Pt., Level 3. * Procedure Codes: 83012 [place]. 3075F SYST BP GE 130 - 139MM HG. 3078F DIAST BP < 80 MM HG. * Electronic signature of Digna Hull MD on 01/23/2025 at 07:51 AM EST Sign off status: Pending * Provider: Digna Hull M.D. Date: 0 04/18/2024 Generated for Kade jeter/Acosta/eTransmitting on: 03/25/2024 07:51 AM EST History and Physical Notes * HPI (History of Present Illness) Category Sub-Category Detail Notes Category Not es ENT/respiratory sore throat Short of Breath Chest Pain cough Fever Examination Category Sub-Category Detail Notes Category Not es General Examination HEENT: unremarkable Heart: RSR, murmur at LSB Lungs: clear to auscultatio n Abdomen: soft and nontender Extremities: trace leg edema General Appearance: NAD Skin: normal, no rash Neurologic Exam: Intact, gait normal Neck: supple, no lymphaden opathy Oral cavity: no lesions, mucosa m oist and WNL, no erythema Peripheral pulses: normal Back: mild dorsal kyphosis Chest: normal shape and exp ansion
--- OUTSIDE RECORDS SUMMARY | 2024-05-16 11:15 | XMS_ITS ---
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 Name Role Phone Digna Hull Primary Care Provider [phone] Allergies Allergen (clinical drug ingredient) Drug/Non Drug Allergy documented on EMR Reaction Allergy Type Onset Date Status codeine Codeine Unknown Drug Allergy Active succinylcholine Succinylcholine paralysis Drug Allergy Active Results Component Value Reference Range Notes Glycohemoglobin A1c (in hous e) Reviewed date:05/16/2024 06:39:15 PM Interpretation: Performing Lab: Notes/Report: glycohemoglobin 5.5% 5 - 6.5 % P-Comprehensive Metabolic Pa marco (CMP) Reviewed date:05/18/2024 04:45:32 PM Interpretation:Normal Performing Lab: Notes/Report: Test performed by [employer] [employer] [address] [place] [address] , [address], [place] [address] Shine Condon MD, Preparation Supervisor Freezing CLIA: [id number] Sodium 139 135-145 mmol/L Potassium 4.6 3.5-5.3 mmol/L Chloride 102 97-108 mmol/L CO2 27 22-32 mmol/L Glucose 105 65-99 mg/dL BUN 14 6-20 mg/dL Creatinine 0.74 0.50-1.00 mg/dL Calcium 8.7 8.6-10.4 mg/dL eGFR by Creatinine 93 >59 mL/min/1.73m2 Protein 7.1 6.0-8.3 g/dL Albumin 4.0 3.5-5.3 g/dL Alkaline Phosphatase 110 35-121 IU/L ALT (SGPT) 30 <5-47 IU/L AST (SGOT) 36 <5-40 IU/L Bilirubin, Total 0.6 <0.2-1.2 mg/dL A/G Ratio 1.3 1.1-2.5 REASON FOR VISIT 2 month check, Needs Tdap & shingles vaccine Medications Medication SIG (Take, Route, Frequency, Duration) Notes Start Date End Date Status ALPRAZolam 0.5 MG 1 tab(s) orally 3 times a day; Duration: 30 days 05/16/2024 Active Furosemide 20 mg TAKE ONE TABLET BY MOUTH TWICE DAILY NEEDED; Duration: 30 days Active Losartan Potassium 25 MG 1 tablet Orally Once a day; Duration: 30 day(s) 01/21/2024 Active Metoprolol Succinate ER 50 mg TAKE ONE TABLET BY MOUTH EVERY DAY; Duration: 30 days Active FLONASE NASAL SPRAY 50MCG PER SPRAY 1 SPRAY EACH NOSTRIL EACH NOSTRIL QD *Please review for potential replacement for e-prescription and drug interaction check* 02/21/2019 Not-Taking Ozempic (0.25 or 0.5 MG/DOSE) 2 MG/3ML 0.5mg Subcutaneous once weekly 02/25/2024 Active Famotidine 20 MG 1 tablet Orally Twice a day; Duration: 30 days 05/09/2024 Active Vital Signs Weight 198.4 lbs 05/16/2024 Blood pressure systolic 122 mm Hg 05/17/19 25 Blood pressure diastolic 76 mm Hg 025 Heart Rate 68 /min 05/16/2024 Height 61.50 in 05/16/2024 BMI 36.88 kg/m2 05/16/2024 Encounters Encounter Location Date Provider Diagnosis [facility] [address] [place], [place] [id number] 05/16/2024 Digna Hull BMI 35.0-35.9,adult Z68.35 ; Anxiety disorder, unspecified type F41.9 and Type 2 diabetes mellitus without complication, without long-term current use of insulin E11.9 Assessments Encounter Date Diagnosis (ICD Code) Assessment Notes Treatment Notes Treatment Clinical Notes Section Notes 05/16/2024 BMI 35.0-35.9,adult (ICD-10 - Z68.35) 05/16/2024 Anxiety disorder, unspecified type (ICD-10 - F41.9) 05/16/2024 Type 2 diabetes mellitus without complication, without long-term current use of insulin (ICD-10 - E11.9) Plan Of Treatment Medication Medication Name Sig Start Date Stop Date Notes ALPRAZolam 0.5 MG 1 tab(s) orally 3 ti mes a day; Duration: 30 days 05/16/2024 Next Appt Details Follow Up: 2 Months, Reason: Provider Name:Digna Boateng er, 03/06/2025 04:00:00 PM, [address], [address], [place], [place], [id number], Progress Notes * HELLEN MASSEYEDOB: 5 (59 yo F)Acc No.[id number]:05/16/2024 Progress Notes Patient: ARSEN ROSALES Provider: Digna Hull M.D. :1965 A ge:59 Y S ex:Female Date:05/16/2024 Address:[address] [place] [address] , [facility] [id number] Subjective: * Chief Complaints: * 1 . 2 month check. 2. Needs Tdap & shingles vaccine. * HPI: E ndocrinology: The patient is here today for a check up on Diabetes. Pt states she is taking the Ozempic 0.5 once a week, but stopped for about 2 weeks while she was ill. G astroenterology: After the flu she developed NOROVIRUS (see 04/23/24 lab). * ROS: D ERMATOLOGY: no R parker. [...] Diagno stic Procedure: s ee above , [facility] 12/01-12/22/15. * Family History: F ather: [...] use: yes. Marital Status: Single. Occupation: HOME [employer]. Past smoking status: no. Recreational drug use: [...] orally 3 times a day , Taking Ozempic (0.25 or 0.5 MG/DOSE) 2 MG/3ML Solution Pen-injector 0.5mg Subcutaneous once weekly , Taking Famotidine 20 MG Tablet 1 tablet Orally Twice a day , Not-Taking FLONASE NASAL SPRAY 50MCG PER SPRAY 1 SPRAY EACH NOSTRIL EACH NOSTRIL QD , Notes to Pharmacist: *Please review for potential replacement for e-prescription and drug interaction check*, Medication List reviewed and reconciled with the patient * Allergies: C odeine, Succinylcholine: paralysis. Objective: * Vitals: W t:198.4, Temp:98.2, BP:122/76, HR:68, Nurse:GEORGETTE, Ht: 61.50, BMI:36.88. * Examination: G eneral Examination: General Appearance: N AD. H EENT: u nremarkable.?Oral cavity: n o lesions, mucosa moist and WNL, no erythema. N ayush: s upple, no lymphadenopathy. C hest: n ormal shape and expansion. H eart: R SR. L ungs: c lear to auscultation. A bdomen: s oft and nontender , no organomegaly or masses , no guarding or rigidity. N eurologic Exam: I ntact, gait normal. S kin: n ormal, no rash. P eripheral pulses: n ormal (2+) bilaterally. E xtremities: n o leg edema. ? Assessment: * Assessment: 1. B AR 35.0-35.9,adult - Z68.35 (Primary) 2 . A nxiety disorder, unspecified type - F41.9 3 . T ype 2 diabetes mellitus without complication, without long-term current use of insulin - E11.9 Plan: * Treatment: 2. T ype 2 diabetes mellitus without complication, without long-term current use of insulin L AB: P-Comprehensive Metabolic Panel (CMP) (Collection Date & Time - 05/16/2024 03:30 PM) N ormal Value Reference Range A /G Ratio 1.3 1.1-2.5 - * A lbumin 4.0 3.5-5.3 - g/dL * A lkaline Phosphatase 110 35-121 - IU/L * A LT (SGPT) 30 <5-47 - IU/L * A ST (SGOT) 36 <5-40 - IU/L * B ilirubin, Total 0.6 <0.2-1.2 - mg/dL * B UN 14 6-20 - mg/dL * C alcium 8.7 8.6-10.4 - mg/dL * C hloride 102 97-108 - mmol/L * C O2 27 22-32 - mmol/L * C reatinine 0.74 0.50-1.00 - mg/dL * G lucose 105 H 65-99 - mg/dL * P otassium 4.6 3.5-5.3 - mmol/L * S odium 139 135-145 - mmol/L * P rotein 7.1 6.0-8.3 - g/dL * e GFR by Creatinine 93 >59 - mL/min/1.73m2 * Asha Braden 05/18/2024 4:4 5:15 PM > Patient informed of normal results. ?LAB: Glycohemoglobin A1c (in house) (Collection Date & Time - 05/16/2024)* Value Reference Range g lycohemoglobin 5.5% 5 - 6.5 % * Asha Braden 05/16/2024 4:4 2:27 PM > 1+ Provider reviewed results while patient in office. * Procedure Codes: 3 6416 CAPILLARY BLOOD DRAW, 73838 GLYCATED HEMOGLOBIN TEST, Modifiers: QW , 3074F SYST BP LT 130 MM HG, 3078F DIAST BP < 80 MM HG, 3044F HG A1C LEVEL LT 7.0% * Follow Up: 2 Months * Images: Billing Information: * Visit Code: 02055 Office Visit, Est Pt., Level 4. * Procedure Codes: 93167 CAPILLARY BLOOD DRAW. 93848 GLYCATED HEMOGLOBIN TEST. Modifiers: QW 3074F SYST BP LT 130 MM HG. 3078F DIAST BP < 80 MM HG. 3044F HG A1C LEVEL LT 7.0%. * Electronic signature of Digna Hull MD on 01/23/2025 at 07:52 AM EST Sign off status: Pending * Provider: Digna Hull M.D. Date: 0 05/16/2024 Generated for Kade jeter/Acosta/eTransmitting on: 1 03/25/2024 07:52 AM EST History and Physical Notes * HPI (History of Present Illness) Category Sub-Category Detail Notes Category Not es Gastroenterology After the f cyndee she developed NOROVIRUS (see 04/23/24 lab). Examination Category Sub-Category Detail Notes Category Not es General Examination HEENT: unremarkable Heart: RSR Lungs: clear to auscultatio n Abdomen: soft and nontender , no organomegaly or masses , no guarding or rigidity Extremities: no leg edema General Appearance: NAD Skin: normal, no rash Neurologic Exam: Intact, gait normal Neck: supple, no lymphaden opathy Oral cavity: no lesions, mucosa m oist and WNL, no erythema Peripheral pulses: normal (2+) bilatera lly Chest: normal shape and exp ansion
--- OUTSIDE RECORDS SUMMARY | 2024-07-11 11:15 | XMS_ITS ---
Author Organization [facility]-[place] Address [address] [place] [phone] Care Team Providers Care Automotive Parts Advisor Name Role Phone Digna Hull Primary Care Provider Allergies Allergen (clinical drug ingredient) Drug/Non Drug Allergy documented on EMR Reaction Allergy Type Onset Date Status codeine Codeine Unknown Drug Allergy Active succinylcholine Succinylcholine paralysis Drug Allergy Active REASON FOR VISIT 2 month ckup, Needs Tdap & shingles vaccine Medications Medication SIG (Take, Route, Frequency, Duration) Notes Start Date End Date Status FLONASE NASAL SPRAY 50MCG PER SPRAY 1 SPRAY EACH NOSTRIL EACH NOSTRIL QD *Please review for potential replacement for e-prescription and drug interaction check* 02/21/2019 Not-Taking Metoprolol Succinate ER 50 mg TAKE ONE TABLET BY MOUTH EVERY DAY; Duration: 30 Active metroNIDAZOLE 0.75 % 1 application Externally Twice a day 07/11/2024 Active Ozempic (1 MG/DOSE) 4 MG/3ML 1 mg Subcutaneous once a week; Duration: 30 days 06/16/2024 Active ALPRAZolam 0.5 MG 1 tab(s) orally 3 times a day; Duration: 30 days 05/16/2024 Active Famotidine 20 MG 1 tablet Orally Twice a day; Duration: 30 days 05/09/2024 Active Losartan Potassium 25 MG 1 tablet Orally Once a day; Duration: 30 day(s) 01/21/2024 Active Furosemide 20 mg TAKE ONE TABLET BY MOUTH TWICE DAILY NEEDED; Duration: 30 days Active Problems Problem Type SNOMED Code ICD Code Onset Dates Problem Status W/U Status Risk Notes Problem Rosacea (718755852) Rosacea (L71.9) Active confirmed Vital Signs Weight 191.4 lbs 07/11/2024 Blood pressure systolic 120 mm Hg 07/12/19 25 Blood pressure diastolic 80 mm Hg 025 Heart Rate 74 /min 07/11/2024 Height 61.50 in 07/11/2024 BMI 35.58 kg/m2 07/11/2024 Encounters Encounter Location Date Provider Diagnosis [facility] [address] [place] [address] 36 [facility] [address] [place] [id number] 07/11/2024 Digna Hull Facial dermatitis L30.9 ; Rosacea L71.9 and BMI 35.0-35.9,adult Z68.35 Assessments Encounter Date Diagnosis (ICD Code) Assessment Notes Treatment Notes Treatment Clinical Notes Section Notes 07/11/2024 Facial dermatitis (ICD-10 - L30.9) 07/11/2024 Rosacea (ICD-10 - L71.9) 07/11/2024 BMI 35.0-35.9,adult (ICD-10 - Z68.35) Plan Of Treatment Medication Medication Name Sig Start Date Stop Date Notes metroNIDAZOLE 0.75 % 1 application Externally Twice a day 07/11/2024 Next Appt Details Follow Up: 4 Weeks, Reason: Provider Name:Digna Boateng er, 03/06/2025 04:00:00 PM, [address] [place] [address] 36 [facility], [address], [place], [phone], Progress Notes * SHILPAHELLENEDOB: 5 (59 yo F)Acc No.[id number]:07/11/2024 Progress Notes Patient: ARSEN ROSALES Provider: Digna Hull M.D. :1965 A ge:59 Y S ex:Female Date:07/11/2024 Address:[address] [place] [address] , [id number] Subjective: * Chief Complaints: * 1 . 2 month ckup. 2. Needs Tdap & shingles vaccine. * HPI: C ardiology: The pt is here for a check up on Hypertension and Diabetes. Pt states she has a rash on her face that has been off on for about 8-9 months. Pt states it is not itchy and feels like blisters. Denies : Chest Pain. D enies : [...] Diagno stic Procedure: s ee above , [facility] 12/01-12/22/15. * Family History: F ather: [...] tablet Orally Once a day , Taking Famotidine 20 MG Tablet 1 tablet Orally Twice a day , Taking ALPRAZolam 0.5 MG Tablet 1 tab(s) orally 3 times a day , Taking Ozempic (1 MG/DOSE) 4 MG/3ML Solution Pen-injector 1 mg Subcutaneous once a week , Taking Metoprolol Succinate ER 50 mg Tablet Extended Release 24 Hour TAKE ONE TABLET BY MOUTH EVERY DAY , Not-Taking FLONASE NASAL SPRAY 50MCG PER SPRAY 1 SPRAY EACH NOSTRIL EACH NOSTRIL QD , Notes to Pharmacist: *Please review for potential replacement for e-prescription and drug interaction check*, Medication List reviewed and reconciled with the patient * Allergies: C odeine, Succinylcholine: paralysis. Objective: * Vitals: W t: 191.4, Temp: 98.1, BP: 120/80, HR: 74, Nurse: GEORGETTE, Ht: 61.50, BMI:35.58. * Examination: G eneral Examination: General Appearance: N AD. H EENT: r aised lesions in the periorbital area, bilateral. O ral cavity: n o lesions, mucosa moist and WNL, no erythema. N ayush: s upple, no lymphadenopathy. C hest: n ormal shape and expansion. H eart: R SR. L ungs: c lear to auscultation. A bdomen: s oft and nontender , no organomegaly . N eurologic Exam: I ntact, gait normal. S kin: n ormal, no rash.?Peripheral pulses: n ormal . E xtremities: n o leg edema. ? Assessment: * Assessment: 1. F acial dermatitis - L30.9 (Primary) 2 . R osacea - L71.9 ?3. B NV 35.0-35.9,adult - Z68.35 Plan: * Treatment: * Follow Up: 4 Weeks * Images: Billing Information: * Visit Code: 87429 Office Visit, Est Pt., Level 4. * Procedure Codes: * Electronic signature of Digna Hull MD on 01/23/2025 at 07:52 AM EST Sign off status: Pending * Provider: Digna Hull M.D. Date: 07/11/2024 Generated for Kade jeter/Acosta/eTransmitting on: 03/25/2024 07:52 AM EST History and Physical Notes * HPI (History of Present Illness) Category Sub-Category Detail Notes Category Not es Cardiology Short of Breath Chest Pain Palpitations Dizziness Examination Category Sub-Category Detail Notes Category Not es General Examination HEENT: raised lesio ns in the periorbital area, bilateral Heart: RSR Lungs: clear to auscultatio n Abdomen: soft and nontender , no organomegaly Extremities: no leg edema General Appearance: NAD Skin: normal, no rash Neurologic Exam: Intact, gait normal Neck: supple, no lymphaden opathy Oral cavity: no lesions, mucosa m oist and WNL, no erythema Peripheral pulses: normal Chest: normal shape and exp ansion
--- OUTSIDE RECORDS SUMMARY | 2024-08-22 11:15 | XMS_ITS ---
Author Organization [facility]-[place] Address [address] [place] [id number] Care Team Providers Care Uke Operator Name Role Phone Digna Hull Primary Care Provider [phone] Allergies Allergen (clinical drug ingredient) Drug/Non Drug Allergy documented on EMR Reaction Allergy Type Onset Date Status codeine Codeine Unknown Drug Allergy Active succinylcholine Succinylcholine paralysis Drug Allergy Active Results Component Value Reference Range Notes Glycohemoglobin A1c (in hous e) Reviewed date:08/26/2024 03:37:17 PM Interpretation: Performing Lab: Notes/Report: glycohemoglobin 5.9% 5 - 6.5 % P-Comprehensive Metabolic Pa marco (CMP) Reviewed date:08/30/2024 02:54:10 PM Interpretation:Normal Performing Lab: Notes/Report: Test performed by [employer], [facility] [address] [place] [address] , [address], [place] [address] Shine Condon MD, Womens Volleyball Coach CLIA: [id number] Sodium 143 135-145 mmol/L Potassium 3.7 3.5-5.3 mmol/L Chloride 107 97-108 mmol/L CO2 23 20-32 mmol/L Glucose 92 65-99 mg/dL BUN 14 6-20 mg/dL Creatinine 0.71 0.50-1.00 mg/dL Calcium 8.8 8.6-10.4 mg/dL eGFR by Creatinine 98 >59 mL/min/1.73m2 Protein 7.3 6.0-8.3 g/dL Albumin 4.2 3.5-5.3 g/dL Alkaline Phosphatase 119 35-121 IU/L ALT (SGPT) 31 <5-47 IU/L AST (SGOT) 38 <5-40 IU/L Bilirubin, Total 0.6 <0.2-1.2 mg/dL A/G Ratio 1.4 1.1-2.5 REASON FOR VISIT 1 month ckup Medications Medication SIG (Take, Route, Frequency, Duration) Notes Start Date End Date Status FLONASE NASAL SPRAY 50MCG PER SPRAY 1 SPRAY EACH NOSTRIL EACH NOSTRIL QD *Please review for potential replacement for e-prescription and drug interaction check* 02/21/2019 Not-Taking Ozempic (1 MG/DOSE) 4 MG/3ML INJECT 1 MG SUBCUTANEOUSLY ONCE A WEEK; Duration: 30 days Active metroNIDAZOLE 0.75 % 1 application Externally Twice a day 07/11/2024 Active Famotidine 20 mg TAKE ONE TABLET BY MOUTH TWICE DAILY; Duration: 30 Active Metoprolol Succinate ER 50 mg TAKE ONE TABLET BY MOUTH EVERY DAY; Duration: 30 Active ALPRAZolam 0.5 MG 1 tab(s) orally 3 times a day; Duration: 30 days 05/16/2024 Active Furosemide 20 mg TAKE ONE TABLET BY MOUTH TWICE DAILY NEEDED; Duration: 30 days Active Losartan Potassium 25 MG 1 tablet Orally Once a day; Duration: 30 day(s) 01/21/2024 Active Vital Signs Weight 192.4 lbs 08/22/2024 Blood pressure systolic 130 mm Hg 08/23/19 25 Blood pressure diastolic 82 mm Hg 025 Heart Rate 83 /min 08/22/2024 Height 61.50 in 08/22/2024 BMI 35.76 kg/m2 08/22/2024 Encounters Encounter Location Date Provider Diagnosis [place] [facility] [address] [place] [id number] 08/22/2024 Digna Hull Type 2 diabetes mellitus without complication, without long-term current use of insulin E11.9 ; BMI 35.0-35.9,adult Z68.35 and Family disruption Z63.8 Assessments Encounter Date Diagnosis (ICD Code) Assessment Notes Treatment Notes Treatment Clinical Notes Section Notes 08/22/2024 Type 2 diabetes mellitus without complication, without long-term current use of insulin (ICD-10 - E11.9) 08/22/2024 BMI 35.0-35.9,adult (ICD-10 - Z68.35) 08/22/2024 Family disruption (ICD-10 - Z63.8) Plan Of Treatment Medication Medication Name Sig Start Date Stop Date Notes Ozempic (1 MG/DOSE) 4 MG/3ML INJECT 1 MG SUBCUTANEOUSLY ONCE A WEEK; Duration: 30 days Next Appt Details Follow Up: 4 Weeks, Reason: Provider Name:Digna Boateng er, 03/06/2025 04:00:00 PM, [address], [address], [place], [place], [phone], Progress Notes * HELLEN MASSEYEDOB: 5 (59 yo F)Acc No.[id number]:08/22/2024 Progress Notes Patient: ARSEN ROSALES Provider: Digna Hull M.D. :1965 A ge:59 Y S ex:Female Date:08/22/2024 Address:[address] [place] [address] , [id number] Subjective: * Chief Complaints: * 1 . 1 month ckup. * HPI: D ermatology: The pt is here for a follow up on Rosacea. Pt states she was doing better but had to be away from home for a week and didn't have her medication with her and the redness has returned as before. C onstitutional: Problems with her son. He is having adjustment reaction of childhood. He is living with another family (Danielle). Has an appointment with a court manager strategic marketing. He's throwing everything away that he worked so hard for. . E ndocrinology: Problems with the Ozempic. Is supposed to be taking 1mg. * ROS: D ERMATOLOGY: no R parker. [...] Diagno stic Procedure: s ee above , [facility] 12/01-12/22/15. * Family History: F ather: [...] Marital Status: Single. 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 Past smoking status: no. Recreational drug use: no. Alcohol: no. Sexually active: yes. Travel ouside [place]: no. * Medications: T aking Furosemide 20 mg Tablet TAKE ONE TABLET BY MOUTH TWICE DAILY NEEDED , Taking Losartan Potassium 25 MG Tablet 1 tablet Orally Once a day , Taking ALPRAZolam 0.5 MG Tablet 1 tab(s) orally 3 times a day , Taking Metoprolol Succinate ER 50 mg Tablet Extended Release 24 Hour TAKE ONE TABLET BY MOUTH EVERY DAY , Taking metroNIDAZOLE 0.75 % Gel 1 application Externally Twice a day , Taking Famotidine 20 mg Tablet TAKE ONE TABLET BY MOUTH TWICE DAILY , Taking Ozempic (1 MG/DOSE) 4 MG/3ML Solution Pen-injector INJECT 1 MG SUBCUTANEOUSLY ONCE A WEEK , Not-Taking FLONASE NASAL SPRAY 50MCG PER SPRAY 1 SPRAY EACH NOSTRIL EACH NOSTRIL QD , Notes to Pharmacist: *Please review for potential replacement for e-prescription and drug interaction check*, Medication List reviewed and reconciled with the patient * Allergies: C odeine, Succinylcholine: paralysis. Objective: * Vitals: W t: 192.4, Temp: 98.0, BP: 130/82, HR: 83, Nurse: GEORGETTE, Ht: 61.50, BMI:35.76. * Examination: G eneral Examination: General Appearance: N AD. H EENT: u nremarkable.?Oral cavity: n o lesions, mucosa moist and WNL, no erythema. N ayush: s upple, no lymphadenopathy. C hest: n ormal shape and expansion. H eart: R SR. L ungs: c lear to auscultation. N eurologic Exam: I ntact, gait normal. S kin: n ormal, no rash.?Peripheral pulses: n ormal (2+) bilaterally. E xtremities: n o leg edema. ? P sychology: Mood : s ad, tearful, upset. Assessment: * Assessment: 1. T ype 2 diabetes mellitus without complication, without long-term current use of insulin - E11.9 (Primary) 2 . B WI 35.0-35.9,adult - Z68.35 3 . F amily disruption - Z63.8 Plan: * Treatment: Value Reference Range A /G Ratio 1.4 1.1-2.5 - * A lbumin 4.2 3.5-5.3 - g/dL * A lkaline Phosphatase 119 35-121 - IU/L * A LT (SGPT) 31 <5-47 - IU/L * A ST (SGOT) 38 <5-40 - IU/L * B ilirubin, Total 0.6 <0.2-1.2 - mg/dL * B UN 14 6-20 - mg/dL * C alcium 8.8 8.6-10.4 - mg/dL * C hloride 107 97-108 - mmol/L * C O2 23 20-32 - mmol/L * C reatinine 0.71 0.50-1.00 - mg/dL * G lucose 92 65-99 - mg/dL * P otassium 3.7 3.5-5.3 - mmol/L * S odium 143 135-145 - mmol/L * P rotein 7.3 6.0-8.3 - g/dL * e GFR by Creatinine 98 >59 - mL/min/1.73m2 * Asha Braden 08/30/2024 02: 54:03 PM EDT > Patient informed of normal results. ?LAB: Glycohemoglobin A1c (in house) (Collection Date & Time - 08/22/2024)* Value Reference Range g lycohemoglobin 5.9% 5 - 6.5 % * Asha Braden 08/22/2024 05 :24:38 PM EDT > Provider reviewed results while patient in office. * Procedure Codes: 8 3036 GLYCATED HEMOGLOBIN TEST, Modifiers: QW , 3044F HG A1C LEVEL LT 7.0%, 1036F TOBACCO NON-USER, G8783 BP SCR PRFRM RCMDD DEFIND SCR INTVL, G8752 MOST RECENT SYSTOLIC BP < 140MM HG, G8754 MOST RECENT DIASTOLIC BP < 90MM HG * Follow Up: 4 Weeks * Images: Billing Information: * Visit Code: 88016 Office Visit, Est Pt., Level 3. * Procedure Codes: 94355 GLYCATED HEMOGLOBIN TEST. Modifiers: QW 3044F HG A1C LEVEL LT 7.0%. 1036F TOBACCO NON-USER. G8783 BP SCR PRFRM RCMDD DEFIND SCR INTVL. G8752 MOST RECENT SYSTOLIC BP < 140MM HG. G8754 MOST RECENT DIASTOLIC BP < 90MM HG. * Electronic signature of Digna Hull MD on 01/23/2025 at 07:52 AM EST Sign off status: Pending * Provider: Digna Hull M.D. Date: 0 08/22/2024 Generated for Kade jeter/Acosta/eTransmitting on: 03/25/2024 07:52 AM EST History and Physical Notes * HPI (History of Present Illness) Category Sub-Category Detail Notes Category Not es Endocrinology Problems with the Ozempic. Is supposed to be taking 1mg. Constitutional Problems with her son. He is having adjustment reaction of childhood. He is living with another family (Danielle). Has an appointment with a court manager strategic marketing. He's throwing everything away that he worked so hard for. Examination Category Sub-Category Detail Notes Category Not es General Examination HEENT: unremarkable Heart: RSR Lungs: clear to auscultatio n Extremities: no leg edema General Appearance: NAD Skin: normal, no rash Neurologic Exam: Intact, gait normal Neck: supple, no lymphaden opathy Oral cavity: no lesions, mucosa m oist and WNL, no erythema Peripheral pulses: normal (2+) bilatera lly Chest: normal shape and exp ansion Psychology Mood : sad, tearful, upset
--- OUTSIDE RECORDS SUMMARY | 2024-09-26 11:15 | XMS_ITS ---
Author Organization [facility] Address [address] [place] [id number] Care Team Providers Care Recycling Attendant Name Role Phone Digna Hull Primary Care Provider Allergies Allergen (clinical drug ingredient) Drug/Non Drug Allergy documented on EMR Reaction Allergy Type Onset Date Status codeine Codeine Unknown Drug Allergy Active succinylcholine Succinylcholine paralysis Drug Allergy Active Results Component Value Reference Range Notes CBC Venipuncture (in house) Reviewed date:09/29/2024 01:13:14 PM Interpretation:Normal Performing Lab: Notes/Report: Normal wbc 9.8 3.5 - 10 lymph 27.3% 15 - 50 mid 6.0% 2 - 15 gran 66.7% 35 - 80 rbc 5.36 3.5 - 5.5 hgb 16.5 11.5 - 16.5 hct 48.7 35 - 55 mcv 90.9 75 - 100 mch 30.9 25 - 35 mchc 34.0 31 - 38 platlet 251 100 - 400 P-Basic Metabolic Panel (BMP ) Reviewed date:09/29/2024 01:13:14 PM Interpretation:Normal Performing Lab: Notes/Report: Test performed by [facility], [facility] , [address], [place] [address] Shien Condon MD, Denture Technician CLIA: [id number] Sodium 141 135-145 mmol/L Potassium 3.8 3.5-5.3 mmol/L Chloride 105 97-108 mmol/L CO2 25 20-32 mmol/L Glucose 94 65-99 mg/dL BUN 12 6-20 mg/dL Creatinine 0.68 0.50-1.00 mg/dL Calcium 9.0 8.6-10.4 mg/dL eGFR by Creatinine 100 >59 mL/min/1.73m2 P-TSH Reviewed date:09/29/2024 01:13:14 PM Interpretation:Normal Performing Lab: Notes/Report: Test performed by [employer] [address] [place] [address] , [address], [place] [address] Shine Condon MD, Denture Technician CLIA: [id number] TSH 1.97 0.43-5.25 mU/L REASON FOR VISIT 4 WEEKS Medications Medication SIG (Take, Route, Frequency, Duration) Notes Start Date End Date Status Losartan Potassium 25 MG 1 tablet Orally Once a day; Duration: 30 day(s) 01/21/2024 Active Furosemide 20 mg TAKE ONE TABLET BY MOUTH TWICE DAILY NEEDED; Duration: 30 days Active ALPRAZolam 0.5 MG 1 tab(s) orally 3 times a day; Duration: 30 days 09/13/2024 Active FLONASE NASAL SPRAY 50MCG PER SPRAY 1 SPRAY EACH NOSTRIL EACH NOSTRIL QD *Please review for potential replacement for e-prescription and drug interaction check* 02/21/2019 Not-Taking Famotidine 20 mg 1 tablet orally twice a day; Duration: 30 days Active metroNIDAZOLE 0.75 % 1 application Externally Twice a day 07/11/2024 Active Metoprolol Succinate ER 50 mg TAKE ONE TABLET BY MOUTH EVERY DAY; Duration: 30 Active Ozempic (2 MG/DOSE) 8 MG/3ML 2 mg Subcutaneous once a week; Duration: 28 days Active Vital Signs Weight 188.8 lbs 09/26/2024 Blood pressure systolic 140 mm Hg 09/27/19 25 Blood pressure diastolic 80 mm Hg 025 Heart Rate 97.8 /min 09/26/2024 Height 61.50 in 09/26/2024 BMI 35.09 kg/m2 09/26/2024 Encounters Encounter Location Date Provider Diagnosis [facility] [address] [facility] [address] [place] [id number] 09/26/2024 Digna Hull Type 2 diabetes memo itus without complication, without long-term current use of insulin E11.9 ; BMI 35.0-35.9,adult Z68.35 and Acquired hypothyroidism E03.9 Assessments Encounter Date Diagnosis (ICD Code) Assessment Notes Treatment Notes Treatment Clinical Notes Section Notes 09/26/2024 Type 2 diabetes mellitus without complication, without long-term current use of insulin (ICD-10 - E11.9) 09/26/2024 BMI 35.0-35.9,adult (ICD-10 - Z68.35) 09/26/2024 Acquired hypothyroidism (ICD-10 - E03.9) Plan Of Treatment Medication Medication Name Sig Start Date Stop Date Notes Ozempic (2 MG/DOSE) 8 MG/3ML 2 mg Subcut aneous once a week; Duration: 28 days Next Appt Details Follow Up: 2 Months, Reason: Provider Name:Digna Boateng er, 03/06/2025 04:00:00 PM, [address] [facility] [address], [address] , [place], [place], [id number], Progress Notes * HELLEN MASSEYEDOB: 5 (59 yo F)Acc No.[id number]:09/26/2024 Progress Notes Patient: ARSEN ROSALES Provider: Digna Hull M.D. :1965 A ge:59 Y S ex:Female Date:09/26/2024 Address:[address] [place] [address] , [id number] Subjective: * Chief Complaints: * 1 . 4 WEEKS. * HPI: E ndocrinology: The patient is here today for a follow up on Ozempic injections. Pt states she is taking 2 mg once a week. Pt denies any side effects. * ROS: D ERMATOLOGY: no R parker. [...] abdomin 12/2016, melanoma, Left side of face 03/25/17, Colonoscopy, Dr. Websetr 12/19/22. * Hospitalization/Major Diagno stic Procedure: s ee above , [facility] 12/01-12/22/15. * Family History: F ather: [...] Marital Status: Single. 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 Recreational [...] application Externally Twice a day , Taking ALPRAZolam 0.5 MG Tablet 1 tab(s) orally 3 times a day , Taking Ozempic (2 MG/DOSE) 8 MG/3ML Solution Pen-injector 2 mg Subcutaneous once a week , Taking Famotidine 20 mg Tablet 1 tablet orally twice a day , Not-Taking FLONASE NASAL SPRAY 50MCG PER SPRAY 1 SPRAY EACH NOSTRIL EACH NOSTRIL QD , Notes to Pharmacist: *Please review for potential replacement for e-prescription and drug interaction check*, Medication List reviewed and reconciled with the patient * Allergies: C odeine, Succinylcholine: paralysis. Objective: * Vitals: W t: 188.8, Temp: 70, BP: 140/80, HR: 97.8, Nurse: GEORGETTE, Ht: 61.50, BMI:35.09. * Examination: G eneral Examination: General Appearance: N AD, note weight. H EENT: u nremarkable. O ral cavity: n o lesions, mucosa moist and WNL, no erythema. N ayush: s upple, no lymphadenopathy. C hest: n ormal shape and expansion. H eart: R SR. L ungs: c lear to auscultation. N eurologic Exam: I ntact, gait normal. S kin: n ormal, no rash. P eripheral pulses: n ormal bilaterally. E xtremities: n o leg edema.? Assessment: * Assessment: 1. T ype 2 diabetes mellitus without complication, without long-term current use of insulin - E11.9 (Primary) 2 . B MT 35.0-35.9,adult - Z68.35 3 . A cquired hypothyroidism - E03.9 Plan: * Treatment: Value Reference Range B UN 12 6-20 - mg/dL * C alcium 9.0 8.6-10.4 - mg/dL * C hloride 105 97-108 - mmol/L * C O2 25 20-32 - mmol/L * C reatinine 0.68 0.50-1.00 - mg/dL * G lucose 94 65-99 - mg/dL * P otassium 3.8 3.5-5.3 - mmol/L * S odium 141 135-145 - mmol/L * e GFR by Creatinine 100 >59 - mL/min/1.73m2 * Asha Braden 09/29/2024 01 :13:03 PM EDT > Patient informed of normal results. ?LAB: CBC Venipuncture (in house) (Collection Date & Time - 09/26/2024)? Normal* Value Reference Range w bc 9.8 3.5 - 10 * l ymph 27.3% 15 - 50 * m id 6.0% 2 - 15 * g ran 66.7% 35 - 80 * r bc 5.36 3.5 - 5.5 * h gb 16.5 11.5 - 16.5 * h ct 48.7 35 - 55 * m cv 90.9 75 - 100 * m ch 30.9 25 - 35 * m chc 34.0 31 - 38 * p latlet 251 100 - 400 * Asha Braden 09/26/2024 05 :52:28 PM EDT > Asha Braden 09/29/2024 01:13:03 PM EDT > Patient informed of normal results. 2.?Acquired hypothyroidism?LAB: P-TSH (Collection Date & Time - 09/26/2024 03:50 PM)?Normal* Value Reference Range T SH 1.97 0.43-5.25 - mU/L * Asha Braden 09/29/2024 01 :13:03 PM EDT > Patient informed of normal results. * Procedure Codes: 8 5025 CBC WITH AUTO DIFF, 69170 VENIPUNCT, ROUTINE*, 1036F TOBACCO NON-USER * Follow Up: 2 Months * Images: Billing Information: * Visit Code: 68496 Office Visit, Est Pt., Level 3. * Procedure Codes: 31334 CBC WITH AUTO DIFF. 89487 VENIPUNCT, ROUTINE*. 1036F TOBACCO NON-USER. * Electronic signature of Digna Hull MD on 01/23/2025 at 07:52 AM EST Sign off status: Pending * Provider: Digna Hull M.D. Date: 0 09/26/2024 Generated for Kade jeter/Acosta/eTana on: 1 03/25/2024 07:52 AM EST History and Physical Notes * Examination Category Sub-Category Detail Notes Category Not es General Examination HEENT: unremarkable Heart: RSR Lungs: clear to auscultatio n Extremities: no leg edema General Appearance: NAD, note weight Skin: normal, no rash Neurologic Exam: Intact, gait normal Neck: supple, no lymphaden opathy Oral cavity: no lesions, mucosa m oist and WNL, no erythema Peripheral pulses: normal bilaterally Chest: normal shape and exp ansion
--- OUTSIDE RECORDS SUMMARY | 2024-11-21 11:15 | XMS_ITS ---
Author Organization [facility] Address [address] [place] [id number] Care Team Providers Care Obiee Lead Developer Name Role Phone Digna Hull Primary Care Provider Allergies Allergen (clinical drug ingredient) Drug/Non Drug Allergy documented on EMR Reaction Allergy Type Onset Date Status codeine Codeine Unknown Drug Allergy Active succinylcholine Succinylcholine paralysis Drug Allergy Active Results Component Value Reference Range Notes P-Comprehensive Metabolic Pa marco (CMP) Reviewed date:11/29/2024 01:16:03 PM Interpretation:Normal Performing Lab: Notes/Report: Test performed by [facility], [address] , [address], [place] [address] Shine Condon MD, Library Science Professor CLIA: [id number] Sodium 144 135-145 mmol/L Potassium 3.7 3.5-5.3 mmol/L Chloride 105 97-108 mmol/L CO2 26 20-32 mmol/L Glucose 98 65-99 mg/dL BUN 11 6-20 mg/dL Creatinine 0.72 0.50-1.00 mg/dL Calcium 9.2 8.6-10.4 mg/dL eGFR by Creatinine 96 >59 mL/min/1.73m2 Protein 7.5 6.0-8.3 g/dL Albumin 4.2 3.5-5.3 g/dL Alkaline Phosphatase 114 35-121 IU/L ALT (SGPT) 20 <5-47 IU/L AST (SGOT) 25 <5-40 IU/L Bilirubin, Total 0.8 <0.2-1.2 mg/dL A/G Ratio 1.3 1.1-2.5 MRI : Brain with and w/o con trast Reviewed date:12/16/2024 12:40:06 PM Interpretation:Chronic Microvascular Ischemia Performing Lab: Notes/Report: Chronic Microvascular Ischemia REASON FOR VISIT 2 months, Needs labs, colon cancer screening, Tdap, & shingles vaccine Medications Medication SIG (Take, Route, Frequency, Duration) Notes Start Date End Date Status Furosemide 20 mg TAKE ONE TABLET BY MOUTH TWICE DAILY NEEDED; Duration: 30 days Active metroNIDAZOLE 0.75 % 1 application Externally Twice a day 07/11/2024 Active Losartan Potassium 25 MG 1 tablet Orally Once a day; Duration: 30 day(s) 01/21/2024 Active ALPRAZolam 0.5 MG 1 tab(s) orally 3 times a day; Duration: 30 days 11/21/2024 Active FLONASE NASAL SPRAY 50MCG PER SPRAY 1 SPRAY EACH NOSTRIL EACH NOSTRIL QD *Please review for potential replacement for e-prescription and drug interaction check* 02/21/2019 Not-Taking Ozempic (2 MG/DOSE) 8 MG/3ML 2 mg Subcutaneous once a week; Duration: 28 days Active Famotidine 20 mg 1 tablet orally twice a day; Duration: 30 days Active Metoprolol Succinate ER 50 mg 1 tablet orally once a day; Duration: 30 days Active Problems Problem Type SNOMED Code ICD Code Onset Dates Problem Status W/U Status Risk Notes Problem Abnormal gait (49071320) Imbalance (R26.89) Active confirmed Vital Signs Weight 181.6 lbs 11/21/2024 Blood pressure systolic 140 mm Hg 11/22/19 25 Blood pressure diastolic 68 mm Hg 025 Heart Rate 56 /min 11/21/2024 Height 61.50 in 11/21/2024 BMI 33.75 kg/m2 11/21/2024 Encounters Encounter Location Date Provider Diagnosis [facility] [address] [place], [place] [id number] 11/21/2024 Digna Hull Imbalance R26.89 ; Type 2 diabetes mellitus without complication, without long-term current use of insulin E11.9 ; Anxiety disorder, unspecified type F41.9 ; H/O malignant melanoma of skin Z85.820 and Ductal carcinoma C80.1 Assessments Encounter Date Diagnosis (ICD Code) Assessment Notes Treatment Notes Treatment Clinical Notes Section Notes 11/21/2024 Imbalance (ICD-10 - R26.89) 11/21/2024 Type 2 diabetes mellitus without complication, without long-term current use of insulin (ICD-10 - E11.9) 11/21/2024 Anxiety disorder, unspecified type (ICD-10 - F41.9) 11/21/2024 H/O malignant melanoma of skin (ICD-10 - Z85.820) 11/21/2024 Ductal carcinoma (ICD-10 - C80.1) Plan Of Treatment Medication Medication Name Sig Start Date Stop Date Notes ALPRAZolam 0.5 MG 1 tab(s) orally 3 ti mes a day; Duration: 30 days 11/21/2024 Ozempic (2 MG/DOSE) 8 MG/3ML 2 mg Subcut aneous once a week; Duration: 28 days Next Appt Details Follow Up: 4 Weeks, Reason: Provider Name:Digna Boateng , 03/06/2025 04:00:00 PM, [address], [address], [place], [place], [phone], Progress Notes * HELLEN MASSEYEDOB: 5 (59 yo F)Acc No.[id number]:11/21/2024 Progress Notes Patient: ARSEN ROSALES Provider: Digna Hull M.D. :1965 A ge:59 Y S ex:Female Date:11/21/2024 Address:[address] [place] [address] [id number] Subjective: * Chief Complaints: * 1 . 2 months. 2. Needs labs, colon cancer screening, Tdap, & shingles vaccine. * HPI: E ndocrinology: The pt is here for a check up on Diabetes. Pt states she is taking the ozempic 2 mg once a week. Pt states she is having episodes of dizziness. Pt states this happens every now and then. Pt states she just feels different and sometimes feels clammy. Pt states the last episode was today and lasted about 3 hours and then wore off. * ROS: D ERMATOLOGY: no R parker. n o H patrick. G ASTROENTEROLOGY: no N ausea. n o V omiting. n o D iarrhea.? N EUROLOGY: no M dlylan loss. D izziness yes. * Medical History: g estational DM, Migraines, [...] Diagno stic Procedure: s ee above , [facility] 12/01-12/22/15. * Family History: F ather: [...] Single. 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 Recreational drug use: no. Alcohol: no. Sexually active: yes. Travel ouside [place]: no. * Medications: T aking Furosemide 20 mg Tablet TAKE ONE TABLET BY MOUTH TWICE DAILY NEEDED , Taking Losartan Potassium 25 MG Tablet 1 tablet Orally Once a day , Taking metroNIDAZOLE 0.75 % Gel 1 application Externally Twice a day , Taking ALPRAZolam 0.5 MG Tablet 1 tab(s) orally 3 times a day , Taking Ozempic (2 MG/DOSE) 8 MG/3ML Solution Pen-injector 2 mg Subcutaneous once a week , Taking Metoprolol Succinate ER 50 mg Tablet Extended Release 24 Hour 1 tablet orally once a day , Taking Famotidine 20 mg Tablet 1 tablet orally twice a day , Not-Taking FLONASE NASAL SPRAY 50MCG PER SPRAY 1 SPRAY EACH NOSTRIL EACH NOSTRIL QD , Notes to Pharmacist: *Please review for potential replacement for e-prescription and drug interaction check*, Medication List reviewed and reconciled with the patient * Allergies: C odeine, Succinylcholine: paralysis. Objective: * Vitals: W t: 181.6, Temp: 98.0, BP: 140/68, HR: 56, Nurse: GEORGETTE, Ht: 61.50, BMI:33.75. * Examination: G eneral Examination: General Appearance: N AD, note weight. H EENT: u nremarkable. O ral cavity: n o lesions, mucosa moist and WNL, no erythema. N ayush: s upple, no lymphadenopathy. C hest: n ormal shape and expansion. H eart: R SR. L ungs: c lear to auscultation. N eurologic Exam: I ntact, gait normal, unsteady on Rhomberg. S kin: n ormal, no rash. P eripheral pulses: n ormal bilaterally. E xtremities: n o leg edema. Assessment: * Assessment: 1. I mbalance - R26.89 (Primary) 2 . T ype 2 diabetes mellitus without complication, without long-term current use of insulin - E11.9 3 . A nxiety disorder, unspecified type - F41.9 4 . H /O malignant melanoma of skin - Z85.820 & #160; 5 . D uctal carcinoma - C80.1 S pecify :left Plan: * Treatment: Value Reference Range A /G Ratio 1.3 1.1-2.5 - * A lbumin 4.2 3.5-5.3 - g/dL * A lkaline Phosphatase 114 35-121 - IU/L * A LT (SGPT) 20 <5-47 - IU/L * A ST (SGOT) 25 <5-40 - IU/L * B ilirubin, Total 0.8 <0.2-1.2 - mg/dL * B UN 11 6-20 - mg/dL * C alcium 9.2 8.6-10.4 - mg/dL * C hloride 105 97-108 - mmol/L * C O2 26 20-32 - mmol/L * C reatinine 0.72 0.50-1.00 - mg/dL * G lucose 98 65-99 - mg/dL * P otassium 3.7 3.5-5.3 - mmol/L * S odium 144 135-145 - mmol/L * P rotein 7.5 6.0-8.3 - g/dL * e GFR by Creatinine 96 >59 - mL/min/1.73m2 * Asiya Asha L 11/29/2024 01 :15:54 PM EDT > Left voicemail informing of normal lab results ?Imaging: MRI : Brain with and w/o contrast (Performed Date - 12/01/2024)? Chronic Microvascular Ischemia* Stephanie Walter 11/22/2024 09:1 0:08 AM EDT > auth#[id number]; valid 11/22/2024-02/19/2025; CPT code 06856; faxed to [facility] Joana Crowell 12/16/2024 12:39:59 PM EDT > see phone encounter 2.?Type 2 diabetes mellitus without complication, without long-term current use of insulin? Refill Ozempic (2 MG/DOSE) Solution Pen-injector, 8 MG/3ML, 2 mg, Subcutaneous, once a week, 28 days, 3 Milliliter, Refills 3.??3.?Anxiety disorder, unspecified type? Refill ALPRAZolam Tablet, 0.5 MG, 1 tab(s), orally, 3 times a day, 30 days, 90 Tablet, Refills 2. ? * Procedure Codes: 1 036F TOBACCO NON-USER * Follow Up: 4 Weeks * Images: Billing Information: * Visit Code: 36304 Office Visit, Est Pt., Level 4. * Procedure Codes: 1036F TOBACCO NON-USER. * Electronic signature of Digna Hull MD on 01/23/2025 at 07:53 AM EST Sign off status: Pending * Provider: Digna Hull M.D. Date: 0 11/21/2024 Generated for Printi ng/Acosta/eTransmitting on: 1 03/25/2024 07:53 AM EST History and Physical Notes * Examination Category Sub-Category Detail Notes Category Not es General Examination HEENT: unremarkable Heart: RSR Lungs: clear to auscultatio n Extremities: no leg edema General Appearance: NAD, note weight Skin: normal, no rash Neurologic Exam: Intact, gait normal, unsteady on Rhomberg Neck: supple, no lymphaden opathy Oral cavity: no lesions, mucosa m oist and WNL, no erythema Peripheral pulses: normal bilaterally Chest: normal shape and exp ansion
--- OUTSIDE RECORDS SUMMARY | 2024-12-21 11:30 | XMS_ITS ---
Author Organization [facility] Address [address] [place] [id number] Care Team Providers Care Psych Coordinator Name Role Phone Digna Hull Primary Care Provider Vielka Guardado Unavailable [phone] Allergies Allergen (clinical drug ingredient) Drug/Non Drug Allergy documented on EMR Reaction Allergy Type Onset Date Status codeine Codeine Unknown Drug Allergy Active succinylcholine Succinylcholine paralysis Drug Allergy Active Results Component Value Reference Range Notes Urinalysis - Inhouse Reviewed date:12/22/2024 01:26:24 PM Interpretation:Normal Performing Lab: Notes/Report: Normal Color/Clarity yellow Leuk neg Nitrite neg Urobili 3.2 Protein neg pH 5.5 Blood 1+ Sp. Gr. 1.010 Ketone neg Bili neg Gluc neg H-CBC Reviewed date:12/22/2024 01:26:24 PM Interpretation:Normal Performing Lab: Notes/Report: WBC 9.8 4.8-10.8 K/mm3 RBC 5.12 4.20-5.40 M/mm3 HGB 15.7 12.2-16.2 g/dL HCT 45.8 37.0-47.0 % MCV 89.5 81-99 fl MCH 30.7 27.0-31.2 pg MCHC 34.3 31.8-35.4 g/dL RDW-SD 40.8 RDW 12.3 11.5-17.5 % PLT 246 142-424 K/mm3 MPV 10.1 7.4-10.4 fl NE% 58.4 37.0-80.0 % LY% 31.9 10-50 % MO% 6.9 1.7-9.3 % EO% 2.1 0.1-12.0 % BA% 0.5 0.1-2.0 % NRBC% 0 IG% 0.2 NE# 5.7 1.8-7.8 K/mm3 LY# 3.1 0.7-4.5 K/mm3 MO# 0.7 0.1-1.0 K/mm3 EO# 0.2 0.0-0.4 Kmm3 BA# 0.1 0-0.2 K/mm3 NRBC# 0 IG# 0.02 H-CMP Reviewed date:12/22/2024 01:26:24 PM Interpretation:Normal Performing Lab: Notes/Report: NA 141 136-145 mmol/L K 3.8 3.5-5.1 mmoL/L CL 103 98-107 mmol/L CO2 28 22.0-30.0 mmol/L GAP 13.8 5-15 mEq/L BUN 14 7-17 mg/dl CREATT 0.80 0.52-1.04 mg/dl GFRAA 89 >60 ML/MIN EGFR 73 >60 ml/min GLU 100 74-100 mg/dl CA 8.8 8.4-10.2 mg/dl BILIT 0.9 0.2-1.3 mg/dl AST 29 14-36 U/L ALT 21 12-78 U/L TP 7.1 6.3-8.2 g/dl ALB 3.9 3.5-5.0 g/dl GLOB 3.2 1.3-3.2 g/dL AGRATIO 1.2 1.1-1.8 ALP 128 38-126 U/L H-Glycohemoglobin A1C Reviewed date:12/22/2024 01:26:24 PM Interpretation:Normal Performing Lab: Notes/Report: HGBA1C 5.2 4.0-6.0 % < 6% Non-Diabetic Level < 7% Controlled Diabetic Level > 8% Poorly Controlled Diabetic Level H-VITAMIN B12 Reviewed date:12/22/2024 01:26:24 PM Interpretation:281 Performing Lab: Notes/Report: VITB12 281 239-931 pg/mL REASON FOR VISIT 4 wk ckup Medications Medication SIG (Take, Route, Frequency, Duration) Notes Start Date End Date Status Metoprolol Succinate ER 50 mg 1 tablet orally once a day; Duration: 30 days Active ALPRAZolam 0.5 MG 1 tab(s) orally 3 ti mes a day; Duration: 30 days 11/21/2024 Active Ozempic (2 MG/DOSE) 8 MG/3ML 2 mg Subcutaneous once a week; Duration: 28 days Active Famotidine 20 mg 1 tablet orally twic e a day; Duration: 30 days Active Losartan Potassium 25 MG 1 tablet Orally Once a day; Duration: 30 day(s) 01/21/2024 Active Furosemide 20 mg TAKE ONE TABLET BY M OUTH TWICE DAILY NEEDED; Duration: 30 days Active metroNIDAZOLE 0.75 % 1 application Exter oc Twice a day 07/11/2024 Active Problems Problem Type SNOMED Code ICD Code Onset Dates Problem Status W/U Status Risk Notes Problem Urinary incontinence (581181546) Urinary incontinence in female (R32) Active confirmed Vital Signs Weight 176 lbs 12/21/2024 Blood pressure systolic 130 mm Hg 12/22/19 25 Blood pressure diastolic 70 mm Hg 025 Heart Rate 63 /min 12/21/2024 Height 61.50 in 12/21/2024 BMI 32.71 kg/m2 12/21/2024 Encounters Encounter Location Date Provider Diagnosis [facility] [address] [id number] 12/21/2024 Vielka Steelesanjuana Dizziness R42 ; Imbalance R26.89 ; Type 2 diabetes mellitus without complication, without long-term current use of insulin E11.9 and Urinary incontinence in female R32 Assessments Encounter Date Diagnosis (ICD Code) Assessment Notes Treatment Notes Treatment Clinical Notes Section Notes 12/21/2024 Dizziness (ICD-10 - R42) 12/21/2024 Imbalance (ICD-10 - R26.89) 12/21/2024 Type 2 diabetes mellitus without complication, without long-term current use of insulin (ICD-10 - E11.9) 12/21/2024 Urinary incontinence in female (ICD-10 - R32) May need to see urology. Will get labs first. Plan Of Treatment Treatment Notes Assessment Notes Urinary incontinence in female May need to see urology. Will get labs first. Next Appt Details Follow Up: via phone to repo rt test results, Reason: Provider Name:Digna hagen, 03/06/2025 04:00:00 PM, [address], [place], [id number], Progress Notes * HELLEN MASSEYEDOB: 5 (59 yo F)Acc No.[id number]:12/21/2024 Progress Notes Patient: ARSEN ROSALES Provider: ANGELITA Saldivar :1965 A ge:59 Y S ex:Female Date:12/21/2024 Address:[address] [place] [address] , [place], [id number] Pcp:Digna Hull Subjective: * Chief Complaints: * 1 . 4 wk ckup. * HPI: H PI: Patient is here today for f /u on test results from last visit. Pt states she has no new concerns today but is still getting dizzy spells.. * ROS: D ERMATOLOGY: no R parker. [...] Diagno stic Procedure: s ee above , [facility] 12/01-10/22/16. * Family History: F ather: , coronary [...] Marital Status: Single. 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 Past smoking status: no. Recreational drug use: [...] 1 tablet orally twice a day , Taking Ozempic (2 MG/DOSE) 8 MG/3ML Solution Pen- injector 2 mg Subcutaneous once a week , Taking ALPRAZolam 0.5 MG Tablet 1 tab(s) orally 3 times a day , Taking Metoprolol Succinate ER 50 mg Tablet Extended Release 24 Hour 1 tablet orally once a day , Discontinued FLONASE NASAL SPRAY 50MCG PER SPRAY 1 SPRAY EACH NOSTRIL EACH NOSTRIL QD , Notes to Pharmacist: *Please review for potential replacement for e-prescription and drug interaction check*, Medication List reviewed and reconciled with the patient * Allergies: C odeine, Succinylcholine: paralysis. Objective: * Vitals: W t: 176, Temp: 97.5, BP: 130/70, HR: 63, Nurse: pe, Ht: 61.50, BMI:32.71. * Examination: G eneral Examination: General Appearance: N AD. H EENT: u nremarkable.?Oral cavity: n o lesions, mucosa moist and WNL, no erythema. N ayush: s upple, no lymphadenopathy. C hest: n ormal shape and expansion. H eart: R SR. L ungs: c lear to auscultation. A bdomen: b owel sounds present, soft and nontender. N eurologic Exam: I ntact, gait normal. S kin: n ormal, no rash. P eripheral pulses: n ormal (2+) bilaterally. E xtremities: n o leg edema. Assessment: * Assessment: 1. D izziness - R42 (Primary) 2 . I gilbertalance - R26.89 3 .?Type 2 diabetes mellitus without complication, without long-term current use of insulin - E11.9? 4. U rinary incontinence in female - R32 Plan: * Treatment: Value Reference Range W BC 9.8 4.8-10.8 - K/mm3 * R BC 5.12 4.20-5.40 - M/mm3 * H GB 15.7 12.2-16.2 - g/dL * H CT 45.8 37.0-47.0 - % * M CV 89.5 81-99 - fl * M CH 30.7 27.0-31.2 - pg * M CHC 34.3 31.8-35.4 - g/dL * R DW 12.3 11.5-17.5 - % * P LT 246 142-424 - K/mm3 * M PV 10.1 7.4-10.4 - fl * N E% 58.4 37.0-80.0 - % * L Y% 31.9 10-50 - % * M O% 6.9 1.7-9.3 - % * E O% 2.1 0.1-12.0 - % * B A% 0.5 0.1-2.0 - % * N E# 5.7 1.8-7.8 - K/mm3 * L Y# 3.1 0.7-4.5 - K/mm3 * M O# 0.7 0.1-1.0 - K/mm3 * E O# 0.2 0.0-0.4 - Kmm3 * B A# 0.1 0-0.2 - K/mm3 * R DW-SD 40.8 - fL * N RBC% 0 - % * N RBC# 0 - 10 3/uL * I G% 0.2 - % * I G# 0.02 - 10 3uL * Joana Hutchinson 12/22/2024 01 :26:15 PM EDT > See phone encounter ?LAB: H-VITAMIN B12 (Collection Date & Time - 12/21/2024 05:32 PM)?281* Value Reference Range V ITB12 281 239-931 - pg/mL * Joana Hutchinson 12/22/2024 01 :26:15 PM EDT > See phone encounter 2.?Imbalance?LAB: H-CMP (Collection Date & Time - 12/21/2024 05:32 PM)?Normal* Value Reference Range N A 141 136-145 - mmol/L * K 3.8 3.5-5.1 - mmoL/L * C L 103 98-107 - mmol/L * C O2 28 22.0-30.0 - mmol/L * G AP 13.8 5-15 - mEq/L * B UN 14 7-17 - mg/dl * C REATT 0.80 0.52-1.04 - mg/dl * G FRAA 89 >60 - ML/MIN * E GFR 73 >60 - ml/min * G PARAM 100 74-100 - mg/dl * C A 8.8 8.4-10.2 - mg/dl * B ILIT 0.9 0.2-1.3 - mg/dl * A ST 29 14-36 - U/L * A LT 21 12-78 - U/L * T P 7.1 6.3-8.2 - g/dl * A LB 3.9 3.5-5.0 - g/dl * G LOB 3.2 1.3-3.2 - g/dL * A GRATIO 1.2 1.1-1.8 - * A LP 128 H 38-126 - U/L * Joana Hutchinson 12/22/2024 01 :26:15 PM EDT > See phone encounter 3.?Type 2 diabetes mellitus without complication, without long-term current use of insulin?LAB: H-Glycohemoglobin A1C (Collection Date & Time - 12/21/2024 05:32 PM)? Normal* Value Reference Range H GBA1C 5.2 4.0-6.0 - % * Joana Hutchinson 12/22/2024 01 :26:15 PM EDT > See phone encounter 4.?Urinary incontinence in female? Notes: May need to see urology. Will get labs first.?? * Labs: * L ab: Urinalysis - Inhouse (Collection Date & Time - 12/21/2024) N ormal Value Reference Range C olor/Clarity yellow * L euk neg * N itrite neg * U robili 3.2 * P rotein neg * p H 5.5 * B lood 1+ * S p. Gr. 1.010 * K etone neg * B lori neg * G saleem neg * Leonarda Jones 12/21/2024 05:17:54 PM EDT > Joana Hutchinson 12/22/2024 01:26:15 PM EDT > See phone encounter * Procedure Codes: 8 1002 Urinalysis, no micro, 3044F HG A1C LEVEL LT 7.0%, 1036F TOBACCO NON-USER, 3075F SYST BP GE 130 - 139MM HG, 3078F DIAST BP < 80 MM HG * Follow Up: v ia phone to report test results * Images: Billing Information: * Visit Code: 13440 Office Visit, Est Pt., Level 4. * Procedure Codes: 24864 Urinalysis, no micro. 3044F HG A1C LEVEL LT 7.0%. 1036F TOBACCO NON-USER. 3075F SYST BP GE 130 - 139MM HG. 3078F DIAST BP < 80 MM HG. * Electronic signature of ANGELITA Lee on 01/23/2025 at 07:53 AM EST Sign off status: Pending * Provider: ANGELITA Saldivar Date: Generated for Printi ng/Faxing/eTransmitting on: 03/25/2024 07:53 AM EST History and Physical Notes * HPI (History of Present Illness) Category Sub-Category Detail Notes Category Not es HPI Patient is here today for f/u on test results from last visit. Pt states she has no new concerns today but is still getting dizzy spells. Examination Category Sub-Category Detail Notes Category Not es General Examination HEENT: unremarkable Heart: RSR Lungs: clear to auscultatio n Abdomen: bowel sounds present , soft and nontender Extremities: no leg edema General Appearance: NAD Skin: normal, no rash Neurologic Exam: Intact, gait normal Neck: supple, no lymphaden opathy Oral cavity: no lesions, mucosa m oist and WNL, no erythema Peripheral pulses: normal (2+) bilatera lly Chest: normal shape and exp ansion
--- OUTSIDE RECORDS SUMMARY | 2024-12-28 07:20 | XMS_ITS ---
Author Organization [facility] Address [address] [facility] [address] [place] [id number] Care Team Providers Care Program Eligibility Specialist Name Role Phone Digna Hull Primary Care Provider [phone] Vielka Guardado Unavailable [phone] REASON FOR VISIT b12 Medications Medication SIG (Take, Route, Frequency, Duration) Notes Start Date End Date Status Furosemide 20 mg TAKE ONE TABLET BY M OUT TWICE DAILY NEEDED; Duration: 30 days Active Famotidine 20 mg 1 tablet orally twic e a day; Duration: 30 days Active Ozempic (2 MG/DOSE) 8 MG/3ML 2 mg Subcutaneous once a week; Duration: 28 days Active Losartan Potassium 25 MG 1 tablet Orally Once a day; Duration: 30 day(s) 01/21/2024 Active metroNIDAZOLE 0.75 % 1 application Exter oc Twice a day 07/11/2024 Active ALPRAZolam 0.5 MG 1 tab(s) orally 3 ti mes a day; Duration: 30 days 11/21/2024 Active Metoprolol Succinate ER 50 mg 1 tablet orally once a day; Duration: 30 days Active Encounters Encounter Location Date Provider Diagnosis [facility] [address] [place] [id number] 12/28/2024 Vielka Guardado B12 deficiency E53.8 Assessments Encounter Date Diagnosis (ICD Code) Assessment Notes Treatment Notes Treatment Clinical Notes Section Notes 12/28/2024 B12 deficiency (ICD-10 - E53.8) Plan Of Treatment Next Appt Details Provider Name:Digna Boateng er, 03/06/2025 04:00:00 PM, [address], [place], [id number], Medications Administered Medication Instructions Date of Administration Dosage Notes B-12 12/28/2024 1 mL Progress Notes * ADRIAN MASSEYOB: [birth year] (59 yo F)Acc No.[id number]:12/28/2024 Patient: ARSEN ROSALES Provider: ANGELITA Saldivar :1965 A ge:59 Y S ex:Female Date:12/28/2024 Address:[address] [place] [address] , [place]-[id number] Pcp:Digna Hull Subjective: * Chief Complaints: * 1 . B12. * Medical History: * Medications: T aking Furosemide 20 mg [...] 1 tablet orally once a day , Medication List reviewed and reconciled with the patient Objective: * Vitals: Assessment: * Assessment: 1. B 12 deficiency - E53.8 (Primary) Plan: * Treatment: * Therapeutic Injections: B-12 : 1 mL (Route: Intramuscular) given by Joana Hutchinson on right gluteus (B12 deficiency) * Procedure Codes: J 3420 B-12, 04620 ADMINISTRATION OF INJECTION * Images: Billing Information: * Visit Code: * Procedure Codes: J3420 B-12. 92377 ADMINISTRATION OF INJECTION. * Electronic signature of ANGELITA Lee on 01/23/2025 at 07:52 AM EST Sign off status: Pending * Provider: ANGELITA Saldivar Date: Generated for Kade jeter/Acosta/Alcon on: 03/25/2024 07:52 AM EST
--- OUTSIDE RECORDS SUMMARY | 2025-01-19 09:45 | XMS_ITS ---
[facility] [address] [place] [id number] Care Team Providers Care Debone Supervisor Name Role Phone Digna Hull Primary Care Provider Allergies Allergen (clinical drug ingredient) Drug/Non Drug Allergy documented on EMR Reaction Allergy Type Onset Date Status codeine Codeine Unknown Drug Allergy Active succinylcholine Succinylcholine paralysis Drug Allergy Active Results Component Value Reference Range Notes Rapid Strep- Inhouse (Not ye t reviewed by provider) Interpretation: Performing Lab: Notes/Report: strep test Neg CBC Venipuncture (in house) (Not yet reviewed by provider) Interpretation: Performing Lab: Notes/Report: wbc 14.4 3.5 - 10 lymph 17.8% 15 - 50 mid 4.1% 2 - 15 gran 78.1% 35 - 80 rbc 5.93 3.5 - 5.5 hgb 18.0 11.5 - 16.5 hct 54.1 35 - 55 mcv 91.1 75 - 100 mch 30.3 25 - 35 mchc 33.3 31 - 38 platlet 332 100 - 400 P-Vitamin B12 (Not yet revie wed by provider) Interpretation: Performing Lab: Notes/Report: Test performed by [facility] [address] , [address], [place] [address] Carlos Huston MD, PhD, [facility], Psych Np CLIA: [id number] Vitamin B12 008 321-5650 pg/mL P-Comprehensive Metabolic Pa marco (CMP) (Not yet reviewed by provider) Interpretation: Performing Lab: Notes/Report: Test performed by [facility] [address] [facility] , [address], [place] [address] Carlos Tanya Huston MD, PhD, [facility], Psych Np CLIA: [id number] Sodium 145 135-145 mmol/L Potassium 4.4 3.5-5.3 mmol/L Chloride 102 97-108 mmol/L CO2 26 20-32 mmol/L Glucose 112 65-99 mg/dL BUN 21 6-20 mg/dL Creatinine 1.00 0.50-1.00 mg/dL Calcium 10.3 8.6-10.4 mg/dL eGFR by Creatinine 65 >59 mL/min/1.73m2 Protein 8.6 6.0-8.3 g/dL Albumin 4.8 3.5-5.3 g/dL Alkaline Phosphatase 128 35-121 IU/L ALT (SGPT) 23 <5-47 IU/L AST (SGOT) 30 <5-40 IU/L Bilirubin, Total 0.9 <0.2-1.2 mg/dL A/G Ratio 1.3 1.1-2.5 REASON FOR VISIT B12 Medications Medication SIG (Take, Route, Frequency, Duration) Notes Start Date End Date Status Losartan Potassium 25 MG 1 tablet Orally Once a day; Duration: 30 day(s) 01/21/2024 Active Famotidine 20 mg 1 tablet orally twic e a day; Duration: 30 days Active metroNIDAZOLE 0.75 % 1 application Exter oc Twice a day 07/11/2024 Active Furosemide 20 mg TAKE ONE TABLET BY M OUTH TWICE DAILY NEEDED; Duration: 30 days Active Vitamin B12 1000 MCG 1 tablet Orally Onc e a day Active ALPRAZolam 0.5 MG 1 tab(s) orally 3 ti mes a day; Duration: 30 days 11/21/2024 Active Ozempic (2 MG/DOSE) 8 MG/3ML 2 mg Subcutaneous once a week; Duration: 28 days Active Cefdinir 300 MG as directed Orally t wice a day; Duration: 10 days 01/19/2025 Active Metoprolol Succinate ER 50 mg 1 tablet orally once a day; Duration: 30 days Active Problems Problem Type SNOMED Code ICD Code Onset Dates Problem Status W/U Status Risk Notes Problem Bandemia (169752401) Bandemia (D72.825) Active confirmed Vital Signs Weight 174.6 lbs 01/19/2025 Blood pressure systolic 124 mm Hg 01/20/20 25 Blood pressure diastolic 82 mm Hg 025 Heart Rate 89 /min 01/19/2025 Height 61.50 in 01/19/2025 BMI 32.45 kg/m2 01/19/2025 Encounters Encounter Location Date Provider Diagnosis [facility] [address] [place], [place] [id number] 01/19/2025 Digna Hull Essential hypertensi on I10 ; 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 ; Vitamin B12 deficiency E53.8 ; Carotid stenosis, bilateral I65.23 ; Acquired hypothyroidism E03.9 ; Exposure to strep throat Z20.818 and Bandemia D72.825 Assessments Encounter Date Diagnosis (ICD Code) Assessment Notes Treatment Notes Treatment Clinical Notes Section Notes 01/19/2025 Essential hypertension (ICD-10 - I10) 01/19/2025 Thin basement membrane nephropathy (ICD-10 - N02.9) 01/19/2025 Vitamin B12 deficiency (ICD-10 - E53.8) 01/19/2025 Carotid stenosis, bilateral (ICD-10 - I65.23) 01/19/2025 Acquired hypothyroidism (ICD-10 - E03.9) 01/19/2025 Exposure to strep throat (ICD-10 - Z20.818) 01/19/2025 Bandemia (ICD-10 - D72.825) Plan Of Treatment Medication Medication Name Sig Start Date Stop Date Notes Cefdinir 300 MG as directed Orally t wice a day; Duration: 10 days 01/19/2025 Pending Test Test Name Order Date Rapid Strep- Inhouse 01/19/2025 CBC Venipuncture (in house) 01/19/2025 P-Vitamin B12 01/19/2025 P-Comprehensive Metabolic Panel (CMP) Next Appt Details Follow Up: 6 Weeks, Reason: Provider Name:Digna Boateng , 03/06/2025 04:00:00 PM, [address], [address], [place], [place], [phone], Medications Administered Medication Instructions Date of Administration Dosage Notes B-12 01/19/2025 1 mL Progress Notes * ADRIAN MASSEYOB:[birth year] (59 yo F)Acc No.[id number]:01/19/2025 Progress Notes Patient: ARSEN ROSALES Provider: Digna Hull M.D. :1965 A ge:59 Y S ex:Female Date:01/19/2025 Address:[address] [place] [address] [id number] Subjective: * Chief Complaints: * 1 . B12. * HPI: E NT/respiratory: The pt is here today with c/o chills and fatigue for the past 2 months and pt states it is getting worse. Pt states she is taking OTC vitamin B 12. 1000 mg daily. Pt states she did have one injection of B12. Denies : sore throat. D enies : cough. D enies : Fever.?Denies : body aches. * ROS: D ERMATOLOGY: no R parker. [...] Diagno stic Procedure: s ee above , [facility] 12/01-12/22/15. * Family History: F ather: , [...] ouside US: no. * Medications: T aking Vitamin B12 1000 MCG Tablet 1 tablet Orally Once a day , Taking Furosemide 20 mg [...] Succinylcholine: paralysis. Objective: * Vitals: W t: 174.6, Temp: 98.1, BP: 124/82, HR: 89, Nurse: GEORGETTE, Ht: 61.50, BMI:32.45. * Examination: G eneral Examination: General Appearance: [...] o leg edema. Assessment: * Assessment: 1. E ssential hypertension - I10 (Primary) 2 . T hin basement membrane nephropathy - N02.9 3 . V itamin B12 deficiency - E53.8 4 . C arotid stenosis, bilateral - I65.23 5 . A cquired hypothyroidism - E03.9 & #160; 6 . E xposure to strep throat - Z20.818 7 . B andemia - D72.825 ? Plan: * Treatment: Value Reference Range A /G Ratio 1.3 1.1-2.5 - * A lbumin 4.8 3.5-5.3 - g/dL * A lkaline Phosphatase 128 H 35-121 - IU/L * A LT (SGPT) 23 <5-47 - IU/L * A ST (SGOT) 30 <5-40 - IU/L * B ilirubin, Total 0.9 <0.2-1.2 - mg/dL * B UN 21 H 6-20 - mg/dL * C alcium 10.3 8.6-10.4 - mg/dL * C hloride 102 97-108 - mmol/L * C O2 26 20-32 - mmol/L * C reatinine 1.00 0.50-1.00 - mg/dL * G lucose 112 H 65-99 - mg/dL * P otassium 4.4 3.5-5.3 - mmol/L * S odium 145 135-145 - mmol/L * P rotein 8.6 H 6.0-8.3 - g/dL * e GFR by Creatinine 65 >59 - mL/min/1.73m2 2.?Vitamin B12 deficiency?LAB: P-Vitamin B12 (Collection Date & Time - 01/19/2025 03:20 PM)* Value Reference Range V itamin B12 849 092-8391 - pg/mL 3.?Exposure to strep throat?LAB: CBC Venipuncture (in house) (Collection Date & Time - 01/19/2025)* Value Reference Range w bc 14.4 3.5 - 10 * l ymph 17.8% 15 - 50 * m id 4.1% 2 - 15 * g ran 78.1% 35 - 80 * r bc 5.93 3.5 - 5.5 * h gb 18.0 11.5 - 16.5 * h ct 54.1 35 - 55 * m cv 91.1 75 - 100 * m ch 30.3 25 - 35 * m chc 33.3 31 - 38 * p latlet 332 100 - 400 * Asha Braden 01/19/2025 0 4:54:10 PM EST > Provider reviewed results while patient in office. 4.?Bandemia? Start Cefdinir Capsule, 300 MG, as directed, Orally, twice a day, 10 days, 20, Refills 0.? * Therapeutic Injections: B-12 : 1 mL (Route: Intramuscular) given by NETO Morse on left gluteus (Vitamin B12 deficiency) * Labs: * L ab: Rapid Strep- Inhouse (Collection Date & Time - 01/19/2025) Value Reference Range s trep test Neg * Asha Braden 01/19/2025 0 4:32:15 PM EST > Provider reviewed results while patient in office. * Procedure Codes: 8 5025 CBC WITH AUTO DIFF, 86016 VENIPUNCT, ROUTINE*, 62393 STREP A ASSAY W/OPTIC, Modifiers: QW , J3420 B-12, 50048 ADMINISTRATION OF INJECTION * Follow Up: 6 Weeks * Images: Billing Information: * Visit Code: 40176 Office Visit, Est Pt., Level 4. * Procedure Codes: 11284 CBC WITH AUTO DIFF. 22881 VENIPUNCT, ROUTINE*. 35767 STREP A ASSAY W/OPTIC. Modifiers: QW J3420 B-12. 75022 ADMINISTRATION OF INJECTION. * Electronic signature of Digna Hull MD on 01/23/2025 at 07:53 AM EST Sign off status: Pending * Provider: Digna Hull M.D. Date: 03/21/2024 Generated for Leliai ng/Acosta/eTransmitting on: 03/25/2024 07:53 AM EST History and Physical Notes * HPI (History of Present Illness) Category Sub-Category Detail Notes Category Not es ENT/respiratory sore throat cough Fever body aches Examination Category Sub-Category Detail Notes Category Not [...]
--- NOTE | 2025-01-23 07:50 | CT_ITS ---
FINAL REPORT TECHNIQUE: Thin section axial images were obtained from the aortic arch to the skull base after intravenous contrast injection per CTA protocol. Multiplanar reconstruction images were obtained. Exam was performed using dose reduction techniques and the ALARA principle. CLINICAL HISTORY: CAROTID STENOSIS COMPARISON: None FINDINGS: CTA NECK: Aortic arch: There is a normal three-vessel configuration to the aortic arch. There is no significant stenosis of the great vessels at their origins. Right carotid artery: The right common carotid artery is patent without stenosis. The cervical portions of the right internal carotid artery are patent without stenosis. 0% stenosis per NASCET criteria. Left carotid artery: The left common carotid artery is patent without stenosis. The cervical portions of the left internal carotid artery are patent without stenosis. 0% stenosis per NASCET criteria. Vertebral arteries: The vertebral arteries are patent. No significant stenosis. Other soft tissues: Unremarkable. IMPRESSION: No evidence of stenosis in either the right or left carotid arteries, and the vertebral arteries are patent bilaterally. Reviewed, Interpreted and Dictated by Josefina Baer MD Transcribed by Renetta Badillo Authenticated and [facility]
--- OUTSIDE RECORDS SUMMARY | 2025-01-23 07:52 | XMS_ITS | Clinical Summary ---
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
--- OUTSIDE RECORDS SUMMARY | 2025-01-23 07:53 | XMS_ITS ---
Author Organization Unknown ENCOUNTERS Encounter Performer Location Date Diagnosis Diagnosis Status Pre Admit [address] [place] [address] [phone] Emergency [address] [place] [phone] [facility] [place] [address] [place] [phone] [facility] *Note: Encounters from your own facility or health system may be excluded. Allergies, Adverse Reactions, Alerts Allergen Type Severity Identification Date codeine drug allergy 2 20200827 succinylcholine drug allergy 4 20200827 adhesive tape drug allergy 3 20200827 Medications Name Date Quantity Days Supplied [facility] Number
--- OUTSIDE RECORDS SUMMARY | 2025-01-23 07:53 | XMS_ITS | Patient Health Record ---
Author Organization [facility] Address [address] [place] [id number] Care Team Providers Care Senior Product Development Scientist Name Role Phone Digna Hull Primary Care Provider Vielka Guardado Unavailable [phone] Allergies Allergen (clinical drug ingredient) Drug/Non Drug [...] Interpretation:Normal Performing Lab: Notes/Report: Test performed by Khush [address] [place] [address] , [address], [place] [address] Shine Condon MD, Internet Cafe Manager CLIA: [id number] Sodium 139 135-145 mmol/L Potassium 4.6 3.5-5.3 [...] Interpretation:Normal Performing Lab: Notes/Report: Test performed by Khush [address] [place] [address] [address], [place] [address] Shine Condon MD, Internet Cafe Manager CLIA: [id number] Sodium 143 135-145 mmol/L Potassium 3.7 3.5-5.3 [...] Interpretation:Normal Performing Lab: Notes/Report: Test performed by Khush [address] [place] [address] , [address], [place] [address] Shine Condon MD, Internet [employer] CLIA: [id number] Sodium 141 135-145 mmol/L Potassium 3.8 3.5-5.3 mmol/L Chloride 105 97-108 mmol/L CO2 25 20-32 mmol/L Glucose 94 65-99 mg/dL BUN 12 6-20 mg/dL Creatinine 0.68 0.50-1.00 mg/dL Calcium 9.0 8.6-10.4 mg/dL eGFR by Creatinine 100 >59 mL/min/1.73m2 P-TSH Reviewed date:09/29/2024 01:13:14 PM Interpretation:Normal Performing Lab: Notes/Report: Test performed by Khush [address] [place], [place] [address] , [address], [place] [address] Shine Condon MD, Internet Cafe Manager CLIA: [id number] TSH 1.97 0.43-5.25 mU/L H-VITAMIN B12 Reviewed date:12/22/2024 01:26:24 PM Interpretation:281 Performing Lab: Notes/Report: VITB12 281 239-931 pg/mL H-Glycohemoglobin A1C Reviewed date:12/22/2024 01:26:24 PM Interpretation:Normal Performing Lab: Notes/Report: HGBA1C 5.2 4.0-6.0 % < 6% Non-Diabetic Level < 7% Controlled Diabetic Level > 8% Poorly Controlled Diabetic Level H-CMP Reviewed date:12/22/2024 01:26:24 PM Interpretation:Normal Performing [...] AGRATIO 1.2 1.1-1.8 ALP 128 38-126 U/L H-CBC Reviewed date:12/22/2024 01:26:24 PM Interpretation:Normal Performing [...] 0.1 0-0.2 K/mm3 NRBC# 0 IG# 0.02 Urinalysis - Inhouse Reviewed date:12/22/2024 01:26:24 PM Interpretation:Normal Performing Lab: Notes/Report: Normal Color/Clarity yellow Leuk neg Nitrite neg Urobili 3.2 Protein neg pH 5.5 Blood 1+ Sp. Gr. 1.010 Ketone neg Bili neg Gluc neg MRI : Brain with and w/o con trast Reviewed date:12/16/2024 12:40:06 PM Interpretation:Chronic Microvascular Ischemia Performing Lab: Notes/Report: Chronic Microvascular Ischemia P-Comprehensive Metabolic Pa marco (CMP) Reviewed date:11/29/2024 01:16:03 PM Interpretation:Normal Performing Lab: Notes/Report: Test performed by [email or web address] [facility] , [address], [place] [address] Shine Condon MD, Internet Cafe Manager CLIA: [id number] Sodium 144 135-145 mmol/L Potassium 3.7 3.5-5.3 [...] 0.8 <0.2-1.2 mg/dL A/G Ratio 1.3 1.1-2.5 Glycohemoglobin A1c (in hous e) Reviewed date:02/25/2024 03:53:01 PM Interpretation: Performing Lab: Notes/Report: glycohemoglobin 6.8% 5 - 6.5 % Ultrasound : Breasts, bilate ral Reviewed date:03/18/2024 12:29:51 PM Interpretation:benign, annual f/u Performing Lab: Notes/Report: benign, annual f/u Mammogram Reviewed date:03/18/2024 12:29:51 PM Interpretation:benign, annual f/u Performing Lab: Notes/Report: benign, annual f/u result benign, annual f/u Rapid Strep- Inhouse (Not ye t reviewed [...] Interpretation: Performing Lab: Notes/Report: Test performed by Khush [address] [place] [address] , [address], [place] [address] Carlos Huston MD, PhD, [facility], Internet Cafe Manager CLIA: [id number] Vitamin B12 982 662-8658 pg/mL P-Comprehensive Metabolic Pa marco (CMP) (Not yet reviewed by provider) Interpretation: Performing Lab: Notes/Report: Test performed by Khush [address] [place] [address] , [address], [place] [address] Carlos Huston MD, PhD, AP, [employer] CLIA: [id number] Sodium 145 135-145 mmol/L Potassium 4.4 3.5-5.3 [...] 0.9 <0.2-1.2 mg/dL A/G Ratio 1.3 1.1-2.5 Medications Medication SIG (Take, Route, Frequency, Duration) [...] e a day; Duration: 30 days Active Cefdinir 300 MG as directed Orally t wice a day; Duration: 10 days 01/19/2025 Active metroNIDAZOLE 0.75 % 1 application Exter oc Twice a day 07/11/2024 Active Metoprolol Succinate ER 50 mg 1 tablet orally once a day; Duration: 30 days Active Furosemide 20 mg TAKE ONE TABLET BY M OUTH TWICE DAILY NEEDED; Duration: 30 days Active Vitamin B12 1000 MCG 1 tablet Orally Onc e a day Active Immunizations Vaccine Route Administration Date Status [...] Notes Problem Malignant neoplasm of female breast (319437959) Malignant neoplasm of unspecified site of left female breast (C50.912) Active confirmed Problem Palpitations (36937193) Palpitations (R00.2) Active confirmed Problem Vitamin D deficiency (09924507) Vitamin D deficiency (E55.9) Active confirmed Problem Essential hypertension (65616887) Essential hypertension (I10) Active confirmed Problem Rosacea (916856295) Rosacea (L71.9) Active conf irmed Problem Mixed anxiety and depressive disorder (942350103) Depression with anxiety (F41.8) Active confirmed Problem Bandemia (974073052) Bandemia (D72.825) Active confirmed Problem Primary insomnia (8928849) Primary insomnia (F51.01) Active confirmed Problem Chronic rhinitis (74403120) Chronic rhinitis (J31.0) Active confirmed Problem 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) Active confirmed Problem Obese class II (256889359151939) BMI 35.0-35.9,adult (Z68.35) Active confirmed Problem Personal history of primary malignant neoplasm of breast (680065088) H/O malignant neoplasm of breast (Z85.3) Active confirmed Problem Gastroesophageal reflux disease without esophagitis (973331574) Gastroesophageal reflux disease without esophagitis (K21.9) Active confirmed Problem Acquired hypothyroidism (961166463) Acquired hypothyroidism (E03.9) Active confirmed Problem Reactive depression (situational) (02024971) Situational depression (F43.21) Active confirmed Problem Obese class II (990471389027522) BMI 36.0-36.9,adult (Z68.36) Active confirmed Problem Anxiety state (938109660) Anxiety disorder, unspecified type (F41.9) Active confirmed Problem Occlusion and stenosis of multiple and bilateral cerebral arteries (044438065) Carotid stenosis, bilateral (I65.23) Active confirmed Problem Abnormal gait (93433385) Imbalance (R26.89) Active confirmed Problem Obese class II (784322937014464) BMI 37.0-37.9, adult (Z68.37) Active confirmed Problem Type II diabetes mellitus without complication (618854556) Type 2 diabetes mellitus without complication, without long-term current use of insulin (E11.9) Active confirmed Problem Adjustment disorder with mixed emotional features (98167290) Situational mixed anxiety and depressive disorder (F43.23) Active confirmed Problem Ductal carcinoma (94545978) Ductal carcinoma (C80.1) Active confirmed Problem History of malignant melanoma of the skin (292128847151) H/O malignant melanoma of skin (Z85.820) Active confirmed Problem Type A influenza (J10.1) Active confirmed Problem Thin basement membrane nephropathy (635395441) 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) Active confirmed Problem Urinary incontinence (692578032) Urinary incontinence in female (R32) Active confirmed Vital Signs Heart Rate 89 /min 01/19/2025 Blood pressure diastolic 82 mm Hg 01/19/2025 Height 61.50 in 01/19/2025 Blood pressure systolic 124 mm Hg 01/19/2025 Weight 174.6 lbs 01/19/2025 BMI 32.45 kg/m2 01/19/2025 Encounters Encounter Location Date Provider Diagnosis [facility] [address] [place] [id number] 02/25/2024 Digna Hull H/O malignant neopla sm of breast Z85.3 ; Hyperglycemia R73.9 ; Situational depression F43.21 ; Type 2 diabetes mellitus without complication, without long-term current use of insulin E11.9 and Anxiety disorder, unspecified type F41.9 [facility] [address], [place] [id number] 04/14/2024 Digna Hull Influenza A J10.1 an d Acute bronchitis, unspecified organism J20.9 [facility] [address], [place] [id number] 04/18/2024 Digna Hull Type A influenza J10 .1 ; BMI 37.0-37.9, adult Z68.37 and Type 2 diabetes mellitus without complication, without long-term current use of insulin E11.9 [facility] [address], [place] [id number] 05/16/2024 Digna Hull BMI 35.0-35.9,adult Z68.35 ; Anxiety disorder, unspecified type F41.9 and Type 2 diabetes mellitus without complication, without long-term current use of insulin E11.9 [facility] [address], [place] [id number] 07/11/2024 Digna Hull Facial dermatitis L3 0.9 ; Rosacea L71.9 and BMI 35.0-35.9,adult Z68.35 [facility] [address] [place], [place] [id number] 08/22/2024 Digna Hull Type 2 diabetes memo itus without complication, without long-term current use of insulin E11.9 ; BMI 35.0-35.9,adult Z68.35 and Family disruption Z63.8 [facility] [address] [place], [place] [id number] 09/26/2024 Digna Hull Type 2 diabetes memo itus without complication, without long-term current use of insulin E11.9 ; BMI 35.0-35.9,adult Z68.35 and Acquired hypothyroidism E03.9 [facility] [address] [facility] [address] [place], [place] [id number] 11/21/2024 Digna Hull Imbalance R26.89 ; T ype 2 diabetes mellitus without complication, without long-term current use of insulin E11.9 ; Anxiety disorder, unspecified type F41.9 ; H/O malignant melanoma of skin Z85.820 and Ductal carcinoma C80.1 [facility] [address] [place], [place] [id number] 12/21/2024 Vielka Debby Dizziness R42 ; Imbalance R26.89 ; Type 2 diabetes mellitus without complication, without long-term current use of insulin E11.9 and Urinary incontinence in female R32 [facility] [address] [place], [place] [id number] 12/28/2024 Vielka Guardado B12 deficiency E53.8 [facility] [address] [facility] [address] [place], [place] [id number] 01/19/2025 Digna Hull Essential hypertensi on I10 ; 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 ; Vitamin B12 deficiency E53.8 ; Carotid stenosis, bilateral I65.23 ; Acquired hypothyroidism E03.9 ; Exposure to strep throat Z20.818 and Bandemia D72.825 [facility] [address] [place], [place] [id number] 01/26/2024 Digna Hull [facility] [address] [place], [place] [id number] 02/29/2024 J Noah Hull [facility] [address] [place], [place] [id number] 05/05/2024 J Noah Hull [facility] [address] [place], [place] [id number] 06/16/2024 J Noah Hull Type 2 diabetes memo itus without complication, without long-term current use of insulin E11.9 [facility] [address] [place], [place] [id number] 08/23/2024 J Noah Hull Type 2 diabetes memo itus without complication, without long-term current use of insulin E11.9 [facility] [address] [place], [place] [id number] 09/12/2024 J Noah Hull BMI 35.0-35.9,adult Z68.35 [facility] [address] [place], [place] [id number] 09/12/2024 J Noah Hull [facility] [address] [place], [place] [id number] 11/28/2024 J Noah Hull [facility] [address] [place], [place] [id number] 12/07/2024 J Noah Hull [facility] [address] [place], [place] [id number] 12/08/2024 J Noah Hull [facility] [address] [place], [place] [id number] 12/09/2024 J Noah Hull [facility] [address] [place], [place] [id number] 12/22/2024 Vielka Guardado Assessments Encounter Date Diagnosis (ICD Code) Assessment Notes Treatment Notes Treatment Clinical Notes Section Notes 02/25/2024 Hyperglycemia (ICD-10 - R73.9) 02/25/2024 H/O malignant neoplasm of breast (ICD-10 - Z85.3) 04/14/2024 Acute bronchitis, unspecified organism (ICD-10 - J20.9) 04/14/2024 Influenza A (ICD-10 - J10.1) 04/18/2024 BMI 37.0-37.9, adult (ICD-10 - Z68.37) 04/18/2024 Type A influenza (ICD-10 - J10.1) 05/16/2024 BMI 35.0-35.9,adult (ICD-10 - Z68.35) 05/16/2024 Anxiety disorder, unspecified type (ICD-10 - F41.9) 06/16/2024 Type 2 diabetes mellitus without complication, without long-term current use of insulin (ICD-10 - E11.9) 07/11/2024 Rosacea (ICD-10 - L71.9) 07/11/2024 Facial dermatitis (ICD-10 - L30.9) 08/22/2024 BMI 35.0-35.9,adult (ICD-10 - Z68.35) 08/22/2024 Type 2 diabetes mellitus without complication, without long-term current use of insulin (ICD-10 - E11.9) 08/23/2024 Type 2 diabetes mellitus without complication, without long-term current use of insulin (ICD-10 - E11.9) 09/12/2024 BMI 35.0-35.9,adult (ICD-10 - Z68.35) 09/26/2024 Type 2 diabetes mellitus without complication, without long-term current use of insulin (ICD-10 - E11.9) 11/21/2024 Imbalance (ICD-10 - R26.89) 12/21/2024 Dizziness (ICD-10 - R42) 12/21/2024 Imbalance (ICD-10 - R26.89) 12/28/2024 B12 deficiency (ICD-10 - E53.8) 01/19/2025 Essential hypertension (ICD-10 - I10) 01/19/2025 Thin basement membrane nephropathy (ICD-10 - N02.9) 01/19/2025 Vitamin B12 deficiency (ICD-10 - E53.8) 12/21/2024 Type 2 diabetes mellitus without complication, without long-term current use of insulin (ICD-10 - E11.9) 11/21/2024 Type 2 diabetes mellitus without complication, without long-term current use of insulin (ICD-10 - E11.9) 09/26/2024 BMI 35.0-35.9,adult (ICD-10 - Z68.35) 08/22/2024 Family disruption (ICD-10 - Z63.8) 07/11/2024 BMI 35.0-35.9,adult (ICD-10 - Z68.35) 05/16/2024 Type 2 diabetes mellitus without complication, without long-term current use of insulin (ICD-10 - E11.9) 04/18/2024 Type 2 diabetes mellitus without complication, without long-term current use of insulin (ICD-10 - E11.9) 02/25/2024 Situational depression (ICD-10 - F43.21) 02/25/2024 Type 2 diabetes mellitus without complication, without long-term current use of insulin (ICD-10 - E11.9) 09/26/2024 Acquired hypothyroidism (ICD-10 - E03.9) 11/21/2024 Anxiety disorder, unspecified type (ICD-10 - F41.9) 12/21/2024 Urinary incontinence in female (ICD-10 - R32) May need to see urology. Will get labs first. 01/19/2025 Carotid stenosis, bilateral (ICD-10 - I65.23) 11/21/2024 H/O malignant melanoma of skin (ICD-10 - Z85.820) 01/19/2025 Acquired hypothyroidism (ICD-10 - E03.9) 02/25/2024 Anxiety disorder, unspecified type (ICD-10 - F41.9) 01/19/2025 Exposure to strep throat (ICD-10 - Z20.818) 11/21/2024 Ductal carcinoma (ICD-10 - C80.1) 01/19/2025 Bandemia (ICD-10 - D72.825) Plan Of Treatment Pending Test Test Name Order Date Rapid Strep- Inhouse 01/19/2025 CBC Venipuncture (in house) 01/19/2025 Carotid Duplex 12/01/2024 CTA : Neck 01/06/2025 P-Vitamin B12 01/19/2025 P-Comprehensive Metabolic Panel (CMP) Next Appt Details Provider Name:Digna Boateng er, 03/06/2025 04:00:00 PM, [address], [address], [place], [id number], Insurance Providers Payer Name Payer Address Payer Phone Subscriber Number Group Number Insured Name Patient Relationship to Insured Coverage Start Date Coverage End Date [employer] [address] [place] [address] [id number] ARSEN MASSEY Self - patient is the insured Medications Administered Medication Instructions Date of Administration Dosage Notes B-12 12/28/2024 1 mL B-12 01/19/2025 1 mL Dexamethasone 03/23/2007 1ML Medical (General) History Medical [...] Dr. Webster 12/19/22 Hospitalization History Reason Date(Month/Year) [facility]ly [facility] 12/01-12/22/15 see above
--- OUTSIDE RECORDS SUMMARY | 2025-01-23 07:54 | XMS_ITS | Clinical Summary ---
Author Organization Healthcare Address [address] [place] [address] Care Team Providers Care Bankruptcy Law Specialist Name Role Phone Heath Hull MD Primary Care Provider [phone] Social History Tobacco Use Types Packs/Day Years [...] Date Last Done Comments [facility]-Depression Screening 1965 [facility]-/Child/Adol SDOH Screenings 1965 [facility]- SDOH Screenings 1983 [...] 2015 [facility]-Zoster Vaccines (1 of 2) 2015 [facility]-GPPTA-22 Vaccine (3 - season) 2024 11/14/2020, 09/26/2020 [...] complete this topic Insurance ANTH Care Teams Bankruptcy Law Specialist Relationship Specialty Start Date End Date Heath Hull MD [address] [place] [id number] PCP - General 07/13/20
[2025-01-23] MEDS: SODIUM CHLORIDE 0.9% 10ML SYR (RAD ONLY) 10 ML IV (08:16)
[2025-01-23] MEDS: 0.9 % SODIUM CHLORIDE 50 ML VIAL IV (08:16)
[2025-01-23] MEDS: IOPAMIDOL-370 (76%);100ML BOTTLE 100 ML IV (08:16)
== END 2025-01-23 23:59 | disposition home or self-care (01) ==
LOC: RAD 07:49
PROVIDERS: PCP Family Medicine; Visit Provider Family Medicine
DX: I65.23 Occlusion and stenosis of bilateral carotid arteries (principal)
CPT/HCPCS: 70498; Q9967